=== PATIENT | female | born 1990 | race Two or more races ===

== ENCOUNTER 2024-09-02 04:31 | Emergency (ER) | payer MEDICAID, SELFPAY ==
[2024-09-02 04:32] VITALS: BMI 34.0
[2024-09-02 04:37] VITALS: BP 101/69; PULSE 93; RESP 17; TEMP 37.2; O2SAT 97
--- NOTE | 2024-09-02 04:43 | EDRME_ITS ---
Rapid Medical Screening Exam [facility] Arrival date/time: 09/02/24 04:31 34F with history of asthma presents to ED with 2 days of worsening wheezing, SOB, and N/V from coughing. Chief Complaint: Shortness of Breath/Dyspnea Vital signs: Vital Signs Temperature 98.9 F 09/02/24 04:37 Pulse Rate 93 09/02/24 04:37 Respiratory Rate 17 09/02/24 04:37 Blood Pressure 101/69 09/02/24 04:37 Pulse Oximetry (%) 97 09/02/24 04:37 Oxygen Delivery Method Room Air 09/02/24 04:37
[2024-09-02] MEDS: LEVALBUTEROL RT 1.25 MG/0.5 ML NEBU 5 MG INH (05:09)
[2024-09-02] MEDS: IPRATROPIUM RT 0.5 MG/ 2.5 ML NEBU 1 MG INH (05:10)
[2024-09-02] MEDS: BUDESONIDE RT 0.5 MG/2 ML NEBU INH (05:10)
[2024-09-02 05:11] VITALS: PULSE 104; RESP 20; O2SAT 98
[2024-09-02] MEDS: DEXAMETHASONE SOD PHOS INJ 10 MG/ML VIAL IM (05:18)
[2024-09-02] MEDS: ONDANSETRON ODT 4 MG TABRAP PO (05:18)
--- NOTE | 2024-09-02 05:55 | XR_ITS ---
Examination: AP chest single view Technique: AP upright portable chest single view Exam date and time: September 02, 2024 0602 hrs. Comparison May 06, 2024 Indications: Shortness of breath today. Findings: Poor inspiration Normal heart size No pneumonia or pulmonary edema Impression: Poor inspiratory effort chest x-ray
--- NOTE | 2024-09-02 06:32 | EDNOTE_ITS ---
ED SOB =RME/HPI General Chief Complaint: Shortness of Breath/Dyspnea Stated Complaint: DIFF BREATHING Time Seen by Provider: 09/02/24 05:54 Arrival date/time: 09/02/24 04:31 RME / HPI RME / HPI Narrative: 09/02/24 04:31 34F with history of asthma presents to ED with 2 days of worsening wheezing, SOB, and N/V from coughing. This section includes all my notes and documentations, including HPI, PE, and ED course. Clarence Agrawal MD HPI: 34-year-old female here with about a week history of worsening cough, productive cough, purulent sputum, and dyspnea. No fever. Has asthma. No other complaints. ROS: All negative except as documented in HPI. Physical Exam: General: Alert and oriented. No acute distress when remaining still. Eyes: Conjunctivae and lids clear. ENT: No nasal congestion. Pharynx normal. Tympanic membrane normal bilaterally. Neck: Supple. Heart: RRR. Lungs: No respiratory distress. Moderately decreased air movement with diffuse rhonchi. Skin: Warm and dry. Neuro: Alert and oriented X 3. I reviewed all diagnostic test results. My interpretation of the chest x-ray is increased bronchial markings, official radiology report pending. COVID/influenza/RSV negative. At this point, diagnoses include bronchitis with asthma exacerbation. Treatment here included dexamethasone and neb treatments and oral Zithromax 500 mg. Significant improvement noted subjectively and objectively. Recommended a trial of outpatient treatment. Based on my best medical judgment, made decision no further evaluation or treatment indicated at this time. Patient understands and agrees to the d ischarge instructions customized and printed, see below. Discharge instructions from Dr. Agrawal: --No physical exertion for 3 days to help rest the lungs. ?-No smoking or exposure to smoking or pets or dust or cold or humidity. --Zithromax to kill the germs causing the bronchitis. --Prednisone to help decrease the swelling in the airways. --Albuterol 2 puffs every 4-6 hours for 3 days to help keep the airways open. Then as needed for cough or shortness of breath. --See a private doctor on 09/06/2024 if not completely better. --Seek immediate medical care with worsening or with any concerns. Clarence Agrawal MD Related Data Home Medications ?Medication ?Instructions ?Recorded ?Confirmed semaglutide (weight loss) 1 mg/0.5 1 mg subcut QWEEK 03/31/24 06/30/24 mL subcutaneous pen injector (Wegovy) Previous Rx's ?Medication ?Instructions ?Recorded albuterol sulfate 90 mcg/actuation 2 inh inhalation QID PRN shortness 09/02/24 aerosol inhaler of breath or wheezing #8.5 grams azithromycin 500 mg tablet 500 mg PO QDAY 3 days #3 tabs 09/02/24 (Zithromax TRI-EVONNE) prednisone 20 mg tablet 40 mg PO 1XD 3 days #6 tabs 09/02/24 Allergies Allergy/AdvReac Type Severity Reaction Status Date / Time Sulfa (Sulfonamide Allergy Severe RASH Verified 09/02/24 04:35 Antibiotics) amoxicillin Allergy Intermediate rash Verified 09/02/24 04:35 Course Quality Measures none Orders Category Date Time Status Bedside COVID-19 Antigen Test NOW Care 09/02/24 05:55 Active Bedside Influenza A&B Antigen Test NOW Care 09/02/24 05:55 Completed XR chest 1V portable Stat Exams 09/02/24 05:55 Taken RSV [Respiratory Syncytial Virus Ag] Stat Lab 09/02/24 06:09 Completed Azithromycin Po [Zithromax PO] Med 09/02/24 06:28 Discontinued 500 mg PO X1 ONE Budesonide Rt [Pulmicort Rt Fozia] Med 09/02/24 04:41 Discontinued 0.5 mg INH X1 ONE Dexamethasone Inj [Decadron Inj] Med 09/02/24 04:41 Discontinued 10 mg IM X1 ONE Ipratropium Matador Rt Fozia [Atrovent Rt Fozia] Med 09/02/24 04:41 Discontinued 1 mg INH X1 ONE Levalbuterol Rt [Xopenex Rt Fozia] Med 09/02/24 04:41 Discontinued 5 mg INH X1 ONE Ondansetron Odt [Zofran Odt] Med 09/02/24 04:41 Discontinued 4 mg PO X1 ONE Sodium Chloride Rt Fozia 0.9% [NS Rt Fozia 0.9%] Med 09/02/24 04:41 Active 3 ml INH PRN PRN Vital Signs Vital signs: Vital Signs Temperature 98.9 F 09/02/24 04:37 Pulse Rate 93 09/02/24 04:37 Respiratory Rate 17 09/02/24 04:37 Blood Pressure 101/69 09/02/24 04:37 Pulse Oximetry (%) 97 09/02/24 04:37 Oxygen Delivery Method Room Air 09/02/24 04:37 Shortness of Breath / Dyspnea Patient data External records reviewed:: [facility] previous records Clinical information provided by:: patient Social determinants that could affect healthcare access:: none Patient has the following chronic illnesses:: Asthma How is presenting disease/condition affected by chronic disease/condition?: exacerbated by Evaluation data The following diagnostics were reviewed and interpreted by me:: lab results and radiology exam(s) Lab and/or radiology exams considered but not ordered:: None Interpretation Summary: Bronchitis and asthma exacerbation Medications / Prescriptions Medications or Prescriptions considered but not ordered:: None Medication administrations:: Medication Administration History Sodium Chloride (Sodium Chloride Rt Fozia 0.9% 3 Ml Nebu) 3 ml INH PRN PRN PRN Reason: SOLN Stop: 10/02/24 04:40 Discontinued Medications Azithromycin (Azithromycin 250 Mg Tablet) 500 mg PO X1 ONE Stop: 09/02/24 06:29 Last Admin: 09/02/24 06:39 Dose: 500 mg Documented By: ROMAN Budesonide (Budesonide Rt 0.5 Mg/2 Ml Nebu) 0.5 mg INH X1 ONE Stop: 09/02/24 04:42 Last Admin: 09/02/24 05:10 Dose: 0.5 mg Documented By: HONG Dexamethasone Sodium Phosphate (Dexamethasone Sod Phos Inj 10 Mg/Ml Vial) 10 mg IM X1 ONE Stop: 09/02/24 04:42 Last Admin: 09/02/24 05:18 Dose: 10 mg Documented By: ROMAN Ipratropium Matador (Ipratropium Rt 0.5 Mg/ 2.5 Ml Nebu) 1 mg INH X1 ONE Stop: 09/02/24 04:42 Last Admin: 09/02/24 05:10 Dose: 1 mg Documented By: HONG Levalbuterol HCl (Levalbuterol Rt 1.25 Mg/0.5 Ml Nebu) 5 mg INH X1 ONE Stop: 09/02/24 04:42 Last Admin: 09/02/24 05:09 Dose: 5 mg Documented By: HONG Ondansetron HCl (Ondansetron Odt 4 Mg Tabrap) 4 mg PO X1 ONE; Protocol Stop: 09/02/24 04:42 Last Admin: 09/02/24 05:18 Dose: 4 mg Documented By: ROMAN Dexamethasone and neb treatments and Zithromax Consultations Consultation(s) initiated? (list below): No Diagnosis Shortness of Breath Differential Diagnosis: acute exacerbation of chronic obstructive airways disease, community acquired pneumonia, asthma with exacerbation and other (Bronchitis, COVID, influenza, RSV) Most likely diagnosis given after review of the tests above:: Bronchitis with asthma exacerbation Admission Indicated Admission indicated?: not indicated Explain why admission is indicated or not indicated:: Admission criteria not met Admission Request Was there a request for admission?: No Disposition Plan Disposition Plan: Discharge Discharge Attestation Discharge Attestation: The patient and all family members were given an opportunity to ask questions and understood the discharge instructions. Discharge instructions specifically effects, indications for sooner follow up or return to the emergency department, and the expected course of current diagnosis. Patient condition: Stable Discharge Plan Plan Patient Disposition: HOME (Self Care) Prescriptions/Referrals Prescriptions/Med Rec: New prednisone 20 mg tablet 40 mg PO 1XD 3 Days Qty: 6 0RF Taper: Prednisone Taper 20 mg DAILY for 2 Days and 0 Hour 10 mg DAILY for 2 Days and 0 Hour 5 mg DAILY for 7 Days and 0 Hour azithromycin [Zithromax TRI-EVONNE] 500 mg tablet 500 mg PO QDAY 3 Days Qty: 3 0RF albuterol sulfate 90 mcg/actuation HFA aerosol inhaler 2 inh inhalation QID PRN (Reason: shortness of breath or wheezing) Qty: 8.5 0RF No Action Wegovy 1 mg/0.5 mL pen injector 1 mg SUBCUT QWEEK Patient Comments: ADMINISTER 1 MG UNDER THE SKIN WEEKLY Problem List Clinical Impression: Bronchitis Patient/Caregiver Discharge Instructions Discharge Activity: activity as tolerated Education Materials: ED Bronchitis with Wheezing (Adult) Additional Instructions: Discharge instructions from Dr. Agrawal: --No physical exertion for 3 days to help rest the lungs. ?-No smoking or exposure to smoking or pets or dust or cold or humidity. --Zithromax to kill the germs causing the bronchitis. --Prednisone to help decrease the swelling in the airways. --Albuterol 2 puffs every 4-6 hours for 3 days to help keep the airways open. Then as needed for cough or shortness of breath. --See a private doctor on 09/06/2024 if not completely better. --Seek immediate medical care with worsening or with any concerns. Print Language: Tristanian Stand Alone Forms: Bree Award Info., Patient Portal Info Letter
[2024-09-02] MEDS: AZITHROMYCIN 250 MG TABLET 500 MG PO (06:39)
[2024-09-02 06:40] VITALS: BP 110/72; PULSE 81; RESP 18; TEMP 36.7; O2SAT 98
[2024-09-02 06:44] LABS: Respiratory Syncytial Virus Ag Negative (Negative)
== END 2024-09-02 06:42 | disposition home or self-care (01) ==
LOC: SERX 06:57
PROVIDERS: Emergency Provider Emergency Medicine
DX: J40 Bronchitis, not specified as acute or chronic (principal)
CPT/HCPCS: 71045; 87400; 87634; 87811; 94644; 96372; 99283; J1100; Q0162; A9270

== ENCOUNTER 2024-09-11 10:02 | Emergency (ER) | payer MEDICAID, SELFPAY ==
[2024-09-11 10:04] VITALS: BMI 34.9
[2024-09-11 10:41] VITALS: BP 96/68; BP 97/67; PULSE 73; RESP 17; TEMP 36.8; O2SAT 98; BMI 34.9
--- NOTE | 2024-09-11 10:42 | XR_ITS ---
Examination: Complete OB ultrasound, less than 14 weeks, transabdominal Date and time of exam: September 11, 2024 1140 hrs. Indications: Weakness abdominal pain pelvic pain today Technique: Obstetrical ultrasound images less than 14 weeks performed via transabdominal imaging Findings: A normal shaped single intrauterine gestation is present in the uterus. pole 0.7 cm corresponds to 6 weeks 4 days gestational age Cardiac motion 130 bpm Subchorionic hemorrhage 13 x 13 mm Ultrasonographic survey of visible structures unremarkable. Amniotic fluid volume appears appropriate for this estimated gestational age. Right ovary 3.7 x 2.7 x 2.9 cm 17 mm follicular cyst Left ovary 2.1 x 1.5 x 1.9 cm arterial flow Impression: Viable intrauterine gestation 6 weeks 4 days.
--- NOTE | 2024-09-11 10:42 | XR_ITS ---
Examination: PA lateral chest 2 views Technique: Upright PA lateral chest 2 views Exam date and time: September 11, 2024 1115 hrs. Comparison September 02, 2024 Indications: Shortness of breath lower abdominal pain beginning 3 days ago. Findings: Minimal prominence left ventricle Mild prominence pulmonary vasculature No pneumonia or pulmonary edema Impression: Mild prominence pulmonary vasculature
--- NOTE | 2024-09-11 10:42 | PD.EDRME ---
Rapid Medical Screening Exam RME Arrival date/time: 09/11/24 10:02 34-year-old female presents emergency department complaints of lower abdominal pain and pelvic pain patient reports being patient also reports generalized weakness Chief Complaint: General Adult/Misc Complain Time Seen by Provider: 09/11/24 10:15
[2024-09-11 11:14] LABS: Collection Type, Urine Clean Catch
[2024-09-11 11:23] LABS: Basophils % (Auto) 0 % (0-2.5); Eosinophils # (Auto) 0.3 Thou/mm3 (0.0-0.5); Eosinophils % (Auto) 3 % (0-10); Hemoglobin 12.2 g/dL (12.0-16.0); Immature Granulocytes % (Auto) 0 % (0-0); Immature Granulocytes Auto 0.04 Thou/mm3 (0.00-0.00); Lymphocytes # (Auto) 2.3 Thou/mm3 (1.0-4.8); Lymphocytes % (Auto) 25 % (10-50); Mean Corpuscular HGB Conc 33.9 g/dl (31.0-37.0); Mean Corpuscular Volume 86 fL (80-100); Monocytes # (Auto) 0.5 Thou/mm3 (0.0-0.8); Monocytes % (Auto) 6 % (0-12); Neutrophils # (Auto) 6.1 Thou/mm3 (1.8-7.7); Neutrophils % (Auto) 66 % (37-80); Nucleated Red Blood Cell % 0 /100 WBC (0); Platelet Count 253 Thou/mm3 (140-440); RDW Standard Deviation 41.3 fL (36.4-46.3); White Blood Count 9.3 Thou/mm3 (3.6-11.0)
[2024-09-11 11:35] LABS: Alanine Aminotransferase 16 U/L (10-49); Albumin, Serum 4.6 gm/dL (3.5-5.0); Albumin/Globulin Ratio 1.8 (1.2-2.2); Alkaline Phosphatase 69 U/L (46-116); Anion Gap 7 (7-16); Aspartate Amino Transferase 11 U/L (0-34); BUN/Creatinine Ratio 15 Ratio (12-20); Blood Urea Nitrogen 9 mg/dL (9-23); Calcium 9.4 mg/dL (8.3-10.6); Calcium (Corrected) 9.4 mg/dL (8.5-10.1); Carbon Dioxide 24.8 mMol/L (20.0-31.0); Chloride 102 mMol/L (98-107); Creatinine (Component) 0.6 mg/dL (0.6-1.3); Estimated Creatinine Clearance 132.3 mL/min (>60); Globulin 2.5 gm/dL (2.3-3.5); Glucose 91 mg/dL (74-106); Lipase 62 U/L (12-53); Osmolality,Calculated 266 (275-295); Potassium 3.7 mMol/L (3.4-5.1); Sodium 134 mMol/L (136-145); Total Protein 7.1 gm/dL (5.7-8.2); eGFR > 60 See Note
[2024-09-11 11:49] LABS: Bacteria,Urine Rare; Bilirubin,Urine Negative (Negative); Blood,Urine Trace (Negative); Clarity,Urine Clear (Clear/Hazy); Color,Urine Colorless (Lt Yel-Yel); Glucose, Urine Negative (Negative); Ketones,Urine Negative (Negative); Leukocyte Esterase,Urine Negative (Negative); Nitrite,Urine Negative (Negative); Protein,Urine Negative (Neg - Trace); RBC,Urine 2 /hpf (0-3); Specific Gravity,Urine 1.004 (1.001-1.035); Squamous Epithelial Cell,Urine 1 /hpf (0-5); Urobilinogen,Urine Negative mg/dL (0.0-1.0); WBC,Urine < 1 /hpf (0-5)
[2024-09-11 12:08] LABS: Beta HCG,Quantitative 88400 mIU/mL (<5.0)
[2024-09-11 14:52] VITALS: BP 102/68; PULSE 74; RESP 19; TEMP 36.8; O2SAT 100
--- NOTE | 2024-09-11 14:57 | EDNOTE_ITS ---
ED General RME/HPI General Chief complaint: General Adult/Misc Complain Stated complaint: LOWER ABD PAIN 7WEEKS /DE LUNA/WEAK Time Seen by Provider: 09/11/24 10:15 Arrival date/time: 09/11/24 10:02 RME / HPI RME / HPI narrative: 34-year-old female patient with no significant medical history, 7 para 6 0, came in for evaluation regarding pelvic pain. Has been having pelvic pain for the last 3 days, described as dull ache, severity mild associated with headache and generalized body weakness. Denies any cough denies any sore throat . Patient also denies any vaginal bleeding or spotting. Denies any dysuria or frequency. Denies any other complaints. Related Data Home Medications ?Medication ?Instructions ?Recorded ?Confirmed semaglutide (weight loss) 1 mg/0.5 1 mg subcut QWEEK 03/31/24 06/30/24 mL subcutaneous pen injector (Wegovy) Previous Rx's ?Medication ?Instructions ?Recorded albuterol sulfate 90 mcg/actuation 2 inh inhalation QID PRN shortness 09/02/24 aerosol inhaler of breath or wheezing #8.5 grams Allergies Allergy/AdvReac Type Severity Reaction Status Date / Time Sulfa (Sulfonamide Allergy Severe RASH Verified 09/02/24 04:35 Antibiotics) amoxicillin Allergy Intermediate rash Verified 09/02/24 04:35 Review of Systems Review of Systems Narrative Review of Systems: Review of system reviewed and within normal limits except mentioned in HPI ED Exam Narrative Physical exam: VITAL SIGNS: Reviewed. GENERAL APPEARANCE: Alert and interactive, follows commands, no acute distress, HEAD AND FACE: Non-traumatic. ENT: PERRL, pink conjunctivitis, eyelid no trauma, Mucous membrane moist. NECK: Supple, nontender, no nuchal rigidity. CHEST: No tenderness, no crepitus, no paradoxical movement, no retractions. LUNGS: Clear, well ventilated, symmetric, no rales, no wheezing, no ronchi, no stridor, good breath sounds bilaterally. HEART: Regular rate, regular rhythm, no murmur, no gallops. ABDOMEN: Soft, positive bowel sounds, nondistended, no guarding, nontender, no rebound, no masses, RECTAL: Deferred. GENITAL: Deferred. NEUROLOGICAL: Gross motor function intact sensory function intact, Appropriate for age. MUSCULOSKELETAL: low back nontender, full range of motion. EXTREMITIES: Nontender, full range of motion. SKIN: Color pink, dry, no rash, no lacerations, no abrasions, no contusions. LYMPHATICS: Deferred. Course Quality Measures none Orders Category Date Time Status Bedside COVID-19 Antigen Test NOW Care 09/11/24 10:42 Active Bedside Influenza A&B Antigen Test NOW Care 09/11/24 10:42 Completed US OB <= 14 weeks fetus Stat Exams 09/11/24 10:42 Completed XR chest 2V Stat Exams 09/11/24 10:42 Completed ABO/RH Type Stat Lab 09/11/24 11:02 Completed Beta HCG,Quantitative Stat Lab 09/11/24 11:02 Completed CBC Stat Lab 09/11/24 11:02 Completed Comprehensive Metabolic Panel Stat Lab 09/11/24 11:02 Completed Lipase Stat Lab 09/11/24 11:02 Completed UA [Urinalysis] Stat Lab 09/11/24 10:58 Completed Urine Culture Stat Lab 09/11/24 10:58 Received Vital Signs Vital signs: Vital Signs Temperature 98.3 F 09/11/24 10:41 Pulse Rate 73 09/11/24 10:41 Respiratory Rate 17 09/11/24 10:41 Blood Pressure 96/68 09/11/24 10:41 Pulse Oximetry (%) 98 09/11/24 10:41 Oxygen Delivery Method Room Air 09/11/24 10:41 MDM Patient data External records reviewed:: None Clinical information provided by:: patient Social determinants that could affect healthcare access:: none Patient has the following chronic illnesses:: None How is presenting disease/condition affected by chronic disease/condition?: no chronic disease Evaluation data The following diagnostics were reviewed and interpreted by me:: lab results and radiology exam(s) Lab and/or radiology exams considered but not ordered:: None Interpretation Summary: Patient's workup today all came back normal no UTI. Negative for COVID and influenza CBC no leukocytosis chest x-ray no infiltrates no pneumothorax pneumothorax, ultrasound of showed single live intrauterine gestation about 6 weeks and 4 days old. Medications Medications considered but not ordered:: None Medication administrations:: None Consultations Consultation(s) initiated? (list below): No Diagnosis Differential Diagnosis ED Complaint MDM: Pelvic pain, ovarian cyst, ectopic , intrauterine gestation, UTI Most likely diagnosis given after review of the tests above:: 6 weeks, pelvic pain Admission Indicated Admission indicated?: not indicated Explain why admission is indicated or not indicated:: Stable Admission Request Was there a request for admission?: No Disposition Plan Disposition Plan: Discharge Discharge Attestation Discharge Attestation: The patient and all family members were given an opportunity to ask questions and understood the discharge instructions. Discharge instructions specifically effects, indications for sooner follow up or return to the emergency department, and the expected course of current diagnosis. Patient condition: Stable Medical Decision Making MDM Narrative MDM Narrative: 34-year-old female patient with no significant medical history, 7 para 6 0, came in for evaluation regarding pelvic pain. Has been having pelvic pain for the last 3 days, described as dull ache, severity mild associated with headache and generalized body weakness. Denies any cough denies any sore throat . Patient also denies any vaginal bleeding or spotting. Denies any dysuria or frequency. Denies any other complaints. Patient's workup today all came back normal no UTI. Negative for COVID and influenza CBC no leukocytosis chest x-ray no infiltrates no pneumothorax pneumothorax, ultrasound of showed single live intrauterine gestation about 6 weeks and 4 days old. Results discussed with the patient. Differential Diagnosis Differential Diagnosis: Pelvic pain, ovarian cyst, ectopic , intrauterine gestation, UTI Lab Data 09/11/24 11:02 09/11/24 11:02 Labs: Lab Results 09/11/24 09/11/24 Range/Units 10:58 11:02 WBC 9.3 (3.6-11.0) Thou/mm3 RBC 4.20 (4.00-5.20) Miln/mm3 Hgb 12.2 (12.0-16.0) g/dL Hct 36.0 (36.0-46.0) % MCV 86 (80-100) fL MCH 29.0 (25.0-35.0) pg MCHC 33.9 (31.0-37.0) g/dl RDW Std Deviation 41.3 (36.4-46.3) fL Plt Count 253 (140-440) Thou/mm3 Neut % (Auto) 66 (37-80) % Lymph % (Auto) 25 (10-50) % [place] % (Auto) 6 (0-12) % Eos % (Auto) 3 (0-10) % Baso % (Auto) 0 (0-2.5) % Neut # (Auto) 6.1 (1.8-7.7) Thou/mm3 Lymph # (Auto) 2.3 (1.0-4.8) Thou/mm3 [place] # (Auto) 0.5 (0.0-0.8) Thou/mm3 Eos # (Auto) 0.3 (0.0-0.5) Thou/mm3 Baso # (Auto) 0.0 (0.0-0.2) Thou/mm3 Immature Gran # (Auto) 0.04 H (0.00-0.00) Thou/mm3 Absolute Nucleated RBC 0.00 (0.00-0.00) Thou/mm3 Immature Gran % 0 (0-0) % Nucleated RBC % 0 (0) /100 WBC Sodium 134 L (136-145) mMol/L Potassium 3.7 (3.4-5.1) mMol/L Chloride 102 (98-107) mMol/L Carbon Dioxide 24.8 (20.0-31.0) mMol/L Anion Gap 7 (7-16) BUN 9 (9-23) mg/dL Creatinine 0.6 (0.6-1.3) mg/dL Estim Creat Clear Calc 132.3 (>60) mL/min eGFR > 60 (60 - ) See Note BUN/Creatinine Ratio 15 (12-20) Ratio Glucose 91 (74-106) mg/dL Calculated Osmolality 266 L (275-295) Calcium 9.4 (8.3-10.6) mg/dL Corrected Calcium 9.4 (8.5-10.1) mg/dL Total Bilirubin 1.0 (0.3-1.2) mg/dL AST 11 (0-34) U/L ALT 16 (10-49) U/L Alkaline Phosphatase 69 (46-116) U/L Total Protein 7.1 (5.7-8.2) gm/dL Albumin 4.6 (3.5-5.0) gm/dL Globulin 2.5 (2.3-3.5) gm/dL Albumin/Globulin Ratio 1.8 (1.2-2.2) Lipase 62 H (12-53) U/L Beta HCG, Quant 59633 (<5.0) mIU/mL Ur Collection Type Clean Catch Urine Color Colorless A (Lt Yel-Yel) Urine Clarity Clear (Clear/Hazy) Urine pH 7.0 (5.0-7.0) Ur Specific [place] 1.004 (1.001-1.035) Urine Protein Negative (Neg - Trace) Urine Glucose (UA) Negative (Negative) Urine Ketones Negative (Negative) Urine Blood Trace (Negative) Urine Nitrite Negative (Negative) Urine Bilirubin Negative (Negative) Urine Urobilinogen (Auto) Negative (0.0-1.0) mg/dL Ur Leukocyte Esterase Negative (Negative) Urine RBC 2 (0-3) /hpf Urine WBC < 1 (0-5) /hpf Ur Squamous Epith Cells 1 (0-5) /hpf Urine Bacteria Rare (None) Blood Type AB Positive Blood Bank Wristband ID Yes Discharge Plan Plan Patient Disposition: HOME (Self Care) Disposition Comment: Stable Prescriptions/Referrals Prescriptions/Med Rec: No Action albuterol sulfate 90 mcg/actuation HFA aerosol inhaler 2 inh inhalation QID PRN (Reason: shortness of breath or wheezing) Qty: 8.5 0RF Wegovy 1 mg/0.5 mL pen injector 1 mg SUBCUT QWEEK Patient Comments: ADMINISTER 1 MG UNDER THE SKIN WEEKLY Referrals: Johnathon Paula MD [Primary Care Provider] - In 1 week Problem List Clinical Impression: Pelvic pain, Patient/Caregiver Discharge Instructions Education Materials: First Trimester Additional Instructions: Thank you for the opportunity for serving you today. You are stable for discharged . You are advised to: Follow-up with your TENDER COORDINATOR in 1 to 2 days Return to ED for worsening of symptoms Increase oral fluids You may take Tylenol as needed for pain Print Language: Japanese Stand Alone Forms: Bree Award Info., Patient Portal Info Letter KALLIE/CHRISSIE Supervising Physician KALLIE/CHRISSIE Supervising Physician: MD Lavonne
== END 2024-09-11 15:15 | disposition home or self-care (01) ==
PROVIDERS: Nurse Practitioner Primary Care; Emergency Provider Emergency Medicine; PCP Family Medicine
DX: O26.891 Other specified pregnancy related conditions, first trimester (principal); R10.2 Pelvic and perineal pain; R06.02 Shortness of breath; Z3A.01 Less than 8 weeks gestation of pregnancy
CPT/HCPCS: 36415; 71046; 76801; 80053; 81001; 83690; 84702; 85025; 86900; 86901; 87086; 87400; 87811; 99284

== ENCOUNTER 2024-09-13 11:23 | Emergency (ER) | payer MEDICAID, SELFPAY ==
[2024-09-13 11:44] VITALS: BP 108/75; PULSE 107; RESP 18; TEMP 38.4; O2SAT 98; BMI 33.6
--- NOTE | 2024-09-13 11:50 | XR_ITS ---
Examination: AP chest single view TECHNIQUE: AP portable upright chest single view Exam date and time: September 13, 2024 1159 hours INDICATIONS: Coughing shortness of breath sepsis today FINDINGS: Normal heart size Lungs are clear. The osseous structures are intact IMPRESSION: No active disease
[2024-09-13 11:53] VITALS: TEMP 38.4
[2024-09-13] MEDS: ACETAMINOPHEN 500 MG TABLET 1000 MG PO (11:53)
--- NOTE | 2024-09-13 12:04 | PD.EDADULT ---
ED General RME/HPI General Chief complaint: Shortness of Breath/Dyspnea Stated complaint: DIFF BREATHING SINCE YESTERDAY, HX ASTHMA Time Seen by Provider: 09/13/24 11:27 Arrival date/time: 09/13/24 11:23 CC: Cough fever wheezing HPI onset 24 hours ago the patient is a at estimated 6 weeks. Seen by [facility]. Patient states son diagnosed with influenza yesterday. The patient states her inhalers at home are not helping for her asthma. Patient denies any vaginal bleeding vaginal discharge nausea vomiting diarrhea. Related Data Home Medications ?Medication ?Instructions ?Recorded ?Confirmed semaglutide (weight loss) 1 mg/0.5 1 mg subcut QWEEK 03/31/24 06/30/24 mL subcutaneous pen injector (Wegovy) Previous Rx's ?Medication ?Instructions ?Recorded albuterol sulfate 90 mcg/actuation 2 inh inhalation QID PRN shortness 09/02/24 aerosol inhaler of breath or wheezing #8.5 grams oseltamivir 75 mg capsule (Tamiflu) 75 mg PO BID 5 days #10 caps 09/13/24 Allergies Allergy/AdvReac Type Severity Reaction Status Date / Time amoxicillin Allergy Severe rash Verified 09/13/24 11:25 Sulfa (Sulfonamide Allergy Severe RASH Verified 09/02/24 04:35 Antibiotics) Review of Systems Review of Systems Narrative Review of Systems: GEN: + fever, no chills, no weight loss EYES: No discharge, no visual changes, no pain HEENT: No ear pain, no congestion, no sore throat PULM: No shortness of breath, + cough, no congestion, +wheezing CV: No chest pain, no dyspnea on exertion, no palpitations GI: No nausea, no vomiting, no diarrhea, no pain, no constipation : No frequency, no urgency, no dysuria MUSC/SKEL: No joint pain, no back pain SKIN: No rash PSYCH: No hallucinations, no depression HEME/LYMPH: No easy bleeding or bruising tendencies NEURO: No weakness, no headache Past Medical History Past Medical History NEUROLOGIC: Negative Neurological Disorders or Seizures CARDIAC: Negative Cardiac Disorders or Congestive Heart Failure RESPIRATORY: Positive Asthma; Negative Chronic Obstructive Pulmonary Disease (COPD) GASTROINTESTINAL: Negative Gastrointestinal Disorders or Hepatitis GENITOURINARY: Negative Genitourinary Disorders or Renal Disease REPRODUCTIVE: Positive Previous Pregnancies MUSCULOSKELETAL: Negative Musculoskeletal Disorders ENDOCRINE: Negative Endocrine Disorders, Diabetes Mellitus Type 1 or Diabetes Mellitus Type 2 HEMATOLOGIC: Negative Blood Disorders or Sickle Cell Disease OTHER HISTORY: Negative Hospitalization, Autoimmune Disease, Down Syndrome, Developmental Delay, Shingles, Falls, Blood Transfusions, Blood Transfusion Reaction, Anesthesia Reactions, Organ Transplant, Chemotherapy, Radiation Therapy, Hyperbaric Therapy, MRSA, VRSA, Vancomycin-Resistant Enterococci, Human Immunodeficiency Virus (HIV), Chicken Pox, Measles, Mumps, Rubella (Thai Measles), Pertussis, Clostridium Difficile or Cancer Family History FAMILY HISTORY: Negative Family Psychiatric Problems, Family Respiratory Disorders, Family Cardiac Disorders, Family Gastrointestinal Problems, Family Cancer, Family Surgery or Family Anesthesia Reaction Surgical History SURGICAL: Negative Section or Organ Transplant Social History SMOKING STATUS: Never smoker SUBSTANCE USE: does not use ED Exam Narrative Physical exam: [General: Obese in mild discomfort not in any acute distress Head normocephalic HEENT: Eyes pupils are PERRLA EOMs are intact nose no rhinorrhea epistaxis mouth: Bay moist membranes uvula is midline swallow symmetrical phonation is normal. All other subsystems of HEENT are within acceptable limits Neck is supple nontender no JVD no edema Chest equal chest rise nontender to palpation Respiratory: Left sided end expiratory wheezes with deep inhalation. CV: Rate rhythm is regular no murmurs rubs or clicks Abdomen is distended secondary to body habitus soft nontender no masses positive bowel sounds all 4 quadrants Back: No CVA tenderness no spinous process tenderness from cervical spine thoracic and lumbar spine Skin: Intact no petechiae rash induration ulceration or crepitus Extremities: Moving all extremity against resistance cap refill less than 2 seconds neurosensory intact Neuro: Awake alert oriented x3 Glascow coma 15 no focal deficits] Course Course Course Narrative: Patient's laboratory results show no acute finding other than influenza B. Quality Measures none Orders Category Date Time Status Bedside COVID-19 Antigen Test NOW Care 09/13/24 11:50 Active Bedside Influenza A&B Antigen Test NOW Care 09/13/24 11:59 Active US OB <= 14 weeks fetus Stat Exams 09/13/24 12:44 Completed XR chest 1V portable Stat Exams 09/13/24 11:50 Completed ABO/RH Type Stat Lab 09/13/24 11:53 Completed Blood Culture (Lab) Stat Lab 09/13/24 11:53 Received CBC Stat Lab 09/13/24 11:53 Completed Comprehensive Metabolic Panel Stat Lab 12/23/24 11:53 Completed HCG,Qualitative Serum Stat Lab 09/13/24 11:53 Completed Influenza A & B Rapid Panel Stat Lab 09/13/24 11:55 Completed Lactate (Lactic Acid) Stat Lab 09/13/24 11:53 Completed Urinalysis Stat Lab 09/13/24 11:50 Ordered Urine Culture Stat Lab 09/13/24 11:50 Ordered Acetaminophen Tab [Tylenol ES Tab] Med 09/13/24 11:49 Discontinued 1,000 mg PO X1 ONE Vital Signs Vital signs: Vital Signs Temperature 101.1 F H 09/13/24 11:44 Pulse Rate 107 H 09/13/24 11:44 Respiratory Rate 18 09/13/24 11:44 Blood Pressure 108/75 09/13/24 11:44 Pulse Oximetry (%) 98 09/13/24 11:44 Oxygen Delivery Method Room Air 09/13/24 11:[address] [facility] Patient data External records reviewed:: [facility] previous records Clinical information provided by:: patient Social determinants that could affect healthcare access:: none Patient has the following chronic illnesses:: asthma How is presenting disease/condition affected by chronic disease/condition?: exacerbated by Evaluation data The following diagnostics were reviewed and interpreted by me:: lab results and radiology exam(s) Lab and/or radiology exams considered but not ordered:: Influenza B positive CBC shows no acute leukocytosis anemia thrombocytopenia CMP shows no acute electrolyte imbalances renal impairment transaminitis or T. bili elevation. Ultrasound symptoms a single IUP with good heart tones Urine is negative Interpretation Summary: Patient's case discussed with Dr. Ms. Leyva states patient can be discharged home on Tamiflu to follow-up with her OB. Medications Medications considered but not ordered:: None Medication administrations:: Medication Administration History Discontinued Medications Acetaminophen (Acetaminophen 500 Mg Tablet) 1,000 mg PO X1 ONE Stop: 09/13/24 11:50 Last Admin: 09/13/24 11:53 Dose: 1,000 mg Documented By: SISSY None Consultations Consultation(s) initiated? (list below): Yes Consultation #1 (Physician, Specialty, Details): Fanny Time: 14:39 Diagnosis Differential Diagnosis ED Complaint MDM: Influenza, sepsis, UTI Most likely diagnosis given after review of the tests above:: Influenza B Admission Indicated Admission indicated?: not indicated Explain why admission is indicated or not indicated:: Stable for outpatient follow-up Admission Request Was there a request for admission?: No Disposition Plan Disposition Plan: Discharge Discharge Attestation Discharge Attestation: The patient and all family members were given an opportunity to ask questions and understood the discharge instructions. Discharge instructions specifically effects, indications for sooner follow up or return to the emergency department, and the expected course of current diagnosis. Patient condition: Stable Medical Decision Making Differential Diagnosis Differential Diagnosis: Influenza, sepsis, UTI Lab Data 09/13/24 11:53 09/13/24 11:53 Labs: Lab Results 09/13/24 09/13/24 Range/Units 11:53 11:55 WBC 7.4 (3.6-11.0) Thou/mm3 RBC 4.24 (4.00-5.20) Miln/mm3 Hgb 12.3 (12.0-16.0) g/dL Hct 36.4 (36.0-46.0) % MCV 86 (80-100) fL MCH 29.0 (25.0-35.0) pg MCHC 33.8 (31.0-37.0) g/dl RDW Std Deviation 42.4 (36.4-46.3) fL Plt Count 209 D (140-440) Thou/mm3 Neut % (Auto) 79 (37-80) % Lymph % (Auto) 11 (10-50) % Wheeler % (Auto) 8 (0-12) % Eos % (Auto) 2 (0-10) % Baso % (Auto) 0 (0-2.5) % Neut # (Auto) 5.8 (1.8-7.7) Thou/mm3 Lymph # (Auto) 0.8 L (1.0-4.8) Thou/mm3 Wheeler # (Auto) 0.6 (0.0-0.8) Thou/mm3 Eos # (Auto) 0.1 (0.0-0.5) Thou/mm3 Baso # (Auto) 0.0 (0.0-0.2) Thou/mm3 Immature Gran # (Auto) 0.02 H (0.00-0.00) Thou/mm3 Absolute Nucleated RBC 0.00 (0.00-0.00) Thou/mm3 Immature Gran % 0 (0-0) % Nucleated RBC % 0 (0) /100 WBC Sodium 134 L (136-145) mMol/L Potassium 3.7 (3.4-5.1) mMol/L Chloride 101 (98-107) mMol/L Carbon Dioxide 21.3 (20.0-31.0) mMol/L Anion Gap 12 (7-16) BUN 7 L (9-23) mg/dL Creatinine 0.6 (0.6-1.3) mg/dL Estim Creat Clear Calc 134.8 (>60) mL/min eGFR > 60 (60 - ) See Note BUN/Creatinine Ratio 12 (12-20) Ratio Glucose 89 (74-106) mg/dL Calculated Osmolality 265 L (275-295) Lactic Acid 1.3 (0.4-2.0) mMol/L Calcium 9.6 (8.3-10.6) mg/dL Corrected Calcium 9.6 (8.5-10.1) mg/dL Total Bilirubin 0.7 (0.3-1.2) mg/dL AST 19 (0-34) U/L ALT 22 (10-49) U/L Alkaline Phosphatase 77 (46-116) U/L Total Protein 7.3 (5.7-8.2) gm/dL Albumin 4.7 (3.5-5.0) gm/dL Globulin 2.6 (2.3-3.5) gm/dL Albumin/Globulin Ratio 1.8 (1.2-2.2) HCG, Qual Positive Influenza A (Rapid) Negative Influenza B (Rapid) Positive A Blood Type AB Positive Blood Bank Wristband ID Yes Discharge Plan Plan Patient Disposition: HOME (Self Care) Patient condition on transfer: Stable Prescriptions/Referrals Prescriptions/Med Rec: New oseltamivir [Tamiflu] 75 mg capsule 75 mg PO BID 5 Days Qty: 10 0RF No Action albuterol sulfate 90 mcg/actuation HFA aerosol inhaler 2 inh inhalation QID PRN (Reason: shortness of breath or wheezing) Qty: 8.5 0RF Wegovy 1 mg/0.5 mL pen injector 1 mg SUBCUT QWEEK Patient Comments: ADMINISTER 1 MG UNDER THE SKIN WEEKLY Referrals: Johnathon Paula MD [Primary Care Provider] - In 1 week Problem List Clinical Impression: Influenza B, Patient/Caregiver Discharge Instructions Education Materials: Influenza (Flu) and , The Flu (Influenza) Additional Instructions: Take the medication as prescribed, include Tylenol. If there is worsening of symptoms return the emergency room immediately for further evaluation. Print Language: Polish Stand Alone Forms: Bree Award Info., Work/School Release, Patient Portal Info Letter PA/YARD COORDINATOR Supervising Physician PA/YARD COORDINATOR Supervising Physician: Aki Ventura ENP
[2024-09-13 12:12] LABS: Lactate (Lactic Acid) 1.3 mMol/L (0.4-2.0)
[2024-09-13 12:24] LABS: Basophils % (Auto) 0 % (0-2.5); Eosinophils # (Auto) 0.1 Thou/mm3 (0.0-0.5); Eosinophils % (Auto) 2 % (0-10); Hematocrit 36.4 % (36.0-46.0); Hemoglobin 12.3 g/dL (12.0-16.0); Immature Granulocytes % (Auto) 0 % (0-0); Immature Granulocytes Auto 0.02 Thou/mm3 (0.00-0.00); Lymphocytes # (Auto) 0.8 Thou/mm3 (1.0-4.8); Lymphocytes % (Auto) 11 % (10-50); Mean Corpuscular HGB Conc 33.8 g/dl (31.0-37.0); Mean Corpuscular Volume 86 fL (80-100); Monocytes # (Auto) 0.6 Thou/mm3 (0.0-0.8); Monocytes % (Auto) 8 % (0-12); Neutrophils # (Auto) 5.8 Thou/mm3 (1.8-7.7); Neutrophils % (Auto) 79 % (37-80); Nucleated Red Blood Cell % 0 /100 WBC (0); Platelet Count 209 Thou/mm3 (140-440); RDW Standard Deviation 42.4 fL (36.4-46.3); Red Blood Count 4.24 Miln/mm3 (4.00-5.20); White Blood Count 7.4 Thou/mm3 (3.6-11.0)
[2024-09-13 12:35] LABS: Influenza A Ag Negative; Influenza B Ag Positive
[2024-09-13 12:37] VITALS: BP 96/60; PULSE 93; RESP 18; TEMP 37.2; O2SAT 100
--- NOTE | 2024-09-13 12:44 | XR_ITS ---
Examination: Complete OB ultrasound, less than 14 weeks, transabdominal Date and time of exam: September 12, 2024 1252 hours INDICATIONS: Sepsis SOB today Technique: Obstetrical ultrasound images less than 14 weeks performed via transabdominal imaging Findings: A normal shaped single intrauterine gestation is present in the uterus. pole 0.9 cm corresponds to 7 weeks 0 days gestational age Cardiac motion 150 BPM Subchorionic hemorrhage 2.5 x 1.5 x 2.0 cm Ultrasonographic survey of visible structures unremarkable. Amniotic fluid volume appears appropriate for this estimated gestational age. Right ovary 4.1 x 2.7 x 2.4 cm arterial flow 21 x 18 mm cyst Left ovary 2.7 x 1.1 x 2.2 cm arterial flow IMPRESSION: Viable intrauterine gestation 7 weeks 0 days Recommend short-term follow-up transvaginal pelvic sonography given the subchorionic hemorrhage.
[2024-09-13 12:59] VITALS: TEMP 37.2
[2024-09-13 13:25] LABS: HCG,Qualitative Serum Positive
[2024-09-13 14:26] LABS: Alanine Aminotransferase 22 U/L (10-49); Albumin, Serum 4.7 gm/dL (3.5-5.0); Albumin/Globulin Ratio 1.8 (1.2-2.2); Alkaline Phosphatase 77 U/L (46-116); Anion Gap 12 (7-16); Aspartate Amino Transferase 19 U/L (0-34); BUN/Creatinine Ratio 12 Ratio (12-20); Bilirubin,Total 0.7 mg/dL (0.3-1.2); Blood Urea Nitrogen 7 mg/dL (9-23); Calcium 9.6 mg/dL (8.3-10.6); Calcium (Corrected) 9.6 mg/dL (8.5-10.1); Carbon Dioxide 21.3 mMol/L (20.0-31.0); Chloride 101 mMol/L (98-107); Creatinine (Component) 0.6 mg/dL (0.6-1.3); Estimated Creatinine Clearance 134.8 mL/min (>60); Globulin 2.6 gm/dL (2.3-3.5); Glucose 89 mg/dL (74-106); Osmolality,Calculated 265 (275-295); Potassium 3.7 mMol/L (3.4-5.1); Sodium 134 mMol/L (136-145); Total Protein 7.3 gm/dL (5.7-8.2); eGFR > 60 See Note
== END 2024-09-13 15:06 | disposition home or self-care (01) ==
PROVIDERS: Nurse Practitioner Primary Care; Registered Nurse General Practice; Emergency Provider Emergency Medicine; PCP Family Medicine
DX: O99.511 Diseases of the respiratory system complicating pregnancy, first trimester (principal); Z3A.01 Less than 8 weeks gestation of pregnancy; J10.1 Influenza due to other identified influenza virus with other respiratory manifestations
CPT/HCPCS: 36415; 71045; 76801; 80053; 81001; 83605; 84703; 85025; 86900; 86901; 87040; 87086; 87502; 99284; A9270

== ENCOUNTER 2024-09-26 18:28 | Emergency (ER) | payer MEDICAID, SELFPAY ==
[2024-09-26 18:29] VITALS: BMI 33.8
[2024-09-26 19:13] VITALS: BP 101/68; PULSE 86; RESP 20; TEMP 36.8; O2SAT 100
--- NOTE | 2024-09-26 19:13 | XR_ITS ---
Examination: Abdomen sonogram, Limited Date and time of exam: September 26, 2019 01/28/1930 BPM Technique: Real-time wilkins scale transabdominal sonographic images of the upper abdomen obtained. Findings: No gallstones identified Gallbladder wall 0.21 cm no edema Common bile duct 0.25 cm no stones Pancreatic head 2.7 cm Liver 15.77 cm no focal liver lesions Normal hepatopedal portal venous flow Patent IVC Impression: Negative for cholelithiasis, negative for cholecystitis Normal common bile duct
--- NOTE | 2024-09-26 19:13 | XR_ITS ---
Examination: Complete OB ultrasound, less than 14 weeks, transabdominal Date and time of exam: March 26, 20252018 hrs. Indications: Right upper abdominal pain beginning 5 days ago Technique: Obstetrical ultrasound images less than 14 weeks performed via transabdominal imaging Findings: A normal shaped single intrauterine gestation is present in the uterus. pole 2.2 cm corresponds to 8 week 6 day gestational age Cardiac motion 180 BPM Ultrasonographic survey of visible and placental structures unremarkable. Amniotic fluid volume appears appropriate for this estimated gestational age. 4.2 x 2.5 x 3.2 cm arterial flow 23 mm cyst Left ovary 1.8 x 1.4 x 1.5 cm arterial flow Impression: Viable intrauterine gestation 8 weeks 6 days.
--- NOTE | 2024-09-26 19:17 | PD.EDRME ---
Rapid Medical Screening Exam E Arrival date/time: 09/26/24 18:28 This is a 34-year-old female that comes in with complaints of abdominal pain in the epigastric area. Patient states she is approximately 9 weeks . Patient's last menstrual period was July 24. Patient is a 7 para 6 patient complains of nausea. Patient denies fever, vomiting, diarrhea. I have greeted and performed a focused initial assessment of this patient. Initial appropriate labs ordered at this time. A comprehensive ED assessment and evaluation of the patient and analysis of all test and completion of medical decision making process will be conducted by additional ED provider. Chief Complaint: Abdominal Pain Time Seen by Provider: 09/26/24 19:06 Vital signs: Vital Signs Temperature 98.2 F 09/26/24 19:13 Pulse Rate 86 09/26/24 19:13 Respiratory Rate 20 09/26/24 19:13 Blood Pressure 101/68 09/26/24 19:13 Pulse Oximetry (%) 100 09/26/24 19:13 Oxygen Delivery Method Room Air 09/26/24 19:13
[2024-09-26 20:24] LABS: Basophils % (Auto) 0 % (0-2.5); Eosinophils # (Auto) 0.3 Thou/mm3 (0.0-0.5); Eosinophils % (Auto) 3 % (0-10); Hematocrit 33.9 % (36.0-46.0); Hemoglobin 11.6 g/dL (12.0-16.0); Immature Granulocytes % (Auto) 0 % (0-0); Immature Granulocytes Auto 0.03 Thou/mm3 (0.00-0.00); Lymphocytes # (Auto) 2.4 Thou/mm3 (1.0-4.8); Lymphocytes % (Auto) 26 % (10-50); Mean Corpuscular HGB Conc 34.2 g/dl (31.0-37.0); Mean Corpuscular Hemoglobin 29.1 pg (25.0-35.0); Mean Corpuscular Volume 85 fL (80-100); Monocytes # (Auto) 0.6 Thou/mm3 (0.0-0.8); Monocytes % (Auto) 7 % (0-12); Neutrophils # (Auto) 5.9 Thou/mm3 (1.8-7.7); Neutrophils % (Auto) 64 % (37-80); Nucleated Red Blood Cell % 0 /100 WBC (0); Platelet Count 290 Thou/mm3 (140-440); RDW Standard Deviation 40.4 fL (36.4-46.3); Red Blood Count 3.98 Miln/mm3 (4.00-5.20); White Blood Count 9.2 Thou/mm3 (3.6-11.0)
[2024-09-26 20:43] LABS: Alanine Aminotransferase 13 U/L (10-49); Albumin, Serum 4.1 gm/dL (3.5-5.0); Albumin/Globulin Ratio 1.5 (1.2-2.2); Alkaline Phosphatase 61 U/L (46-116); Anion Gap 6 (7-16); Aspartate Amino Transferase 13 U/L (0-34); BUN/Creatinine Ratio 18 Ratio (12-20); Bilirubin,Total 0.5 mg/dL (0.3-1.2); Blood Urea Nitrogen 9 mg/dL (9-23); Calcium 9.1 mg/dL (8.3-10.6); Calcium (Corrected) 9.1 mg/dL (8.5-10.1); Carbon Dioxide 25.1 mMol/L (20.0-31.0); Chloride 105 mMol/L (98-107); Creatinine (Component) 0.5 mg/dL (0.6-1.3); Estimated Creatinine Clearance 162.2 mL/min (>60); Globulin 2.7 gm/dL (2.3-3.5); Glucose 81 mg/dL (74-106); Lipase 82 U/L (12-53); Osmolality,Calculated 269 (275-295); Sodium 136 mMol/L (136-145); Total Protein 6.8 gm/dL (5.7-8.2); eGFR > 60 See Note
[2024-09-26 21:26] LABS: Beta HCG,Quantitative 189094 mIU/mL (<5.0)
[2024-09-26 21:56] LABS: Collection Type, Urine Voided
[2024-09-26 22:09] LABS: Bilirubin,Urine Negative (Negative); Blood,Urine 1+ (Negative); Clarity,Urine Clear (Clear/Hazy); Color,Urine Colorless (Lt Yel-Yel); Culture Indicated,Urine Not Indicated; Glucose, Urine Negative (Negative); Ketones,Urine Negative (Negative); Leukocyte Esterase,Urine Negative (Negative); Nitrite,Urine Negative (Negative); PH,Urine 6.5 (5.0-7.0); Protein,Urine Negative (Neg - Trace); RBC,Urine 3 /hpf (0-3); Squamous Epithelial Cell,Urine < 1 /hpf (0-5); Urobilinogen,Urine Negative mg/dL (0.0-1.0); WBC,Urine 1 /hpf (0-5)
--- NOTE | 2024-09-26 22:48 | PD.EDABDPN ---
ED Abdominal Pain RME/HPI General Chief Complaint: Abdominal Pain Stated complaint: abdominal pain, 9 weeks Time seen by provider: 09/26/24 19:06 Arrival date/time: 09/26/24 18:28 Source: patient Mode of arrival: ambulatory Limitations: no limitations RME / HPI RME / HPI narrative: 09/26/24 18:28 This is a 34-year-old female that comes in with complaints of abdominal pain in the epigastric area. Patient states she is approximately 9 weeks . Patient's last menstrual period was July 24. Patient is a 7 para 6 patient complains of nausea. Patient denies fever, vomiting, diarrhea. I have greeted and performed a focused initial assessment of this patient. Initial appropriate labs ordered at this time. A comprehensive ED assessment and evaluation of the patient and analysis of all test and completion of medical decision making process will be conducted by additional ED provider. Dr. Gomez?s Main ED Evaluation: 34-year-old female with history of asthma who presents to the emergency department via private auto for evaluation of abdominal pain intermittent for the past 5 days, significantly worsening tonight. Patient locates the pain to the epigastric region. No radiation or migration. It is worse with PO intake. She notes she is unable to lay flat or sleep comfortably. She is currently 9 weeks . This is her 7th and she has 6 children at home. She reports similar episode in June and was told it was due to an inflamed pancreas. She denies any other associated symptoms, aggravating factors or medical complaints. No sick contacts at home, recent travel or illnesses. Related Data Home Medications ?Medication ?Instructions ?Recorded ?Confirmed semaglutide (weight loss) 1 mg/0.5 1 mg subcut QWEEK 03/31/24 06/30/24 mL subcutaneous pen injector (Wegovy) Previous Rx's ?Medication ?Instructions ?Recorded albuterol sulfate 90 mcg/actuation 2 inh inhalation QID PRN shortness 09/02/24 aerosol inhaler of breath or wheezing #8.5 grams aluminum-mag hydroxide-simethicone 10 ml PO TID PRN indigestion 09/26/24 400 mg-400 mg-40 mg/5 mL oral susp #3,000 mL (Maalox Maximum Strength) famotidine 20 mg tablet (Pepcid) 20 mg PO BID gerd 10 days #20 tabs 09/26/24 Allergies Allergy/AdvReac Type Severity Reaction Status Date / Time amoxicillin Allergy Severe rash Verified 09/13/24 11:25 Sulfa (Sulfonamide Allergy Severe RASH Verified 09/02/24 04:35 Antibiotics) Review of Systems Review of Systems Systems Reviewed: All systems reviewed, normal except as documented Narrative Review of Systems: Gen: No fever, no chills, no weight loss EYES: No discharge, no visual changes, no pain HEENT: No ear pain, no congestion, no sore throat PULM: No shortness of breath, no cough, no congestion CV: No chest pain, no dyspnea on exertion, no palpitations GI: No nausea, no vomiting, no diarrhea, + epigastric pain, no constipation : No frequency, no urgency, no dysuria Musc/skel: No joint pain, no back pain Skin: No rash. Psyc: No hallucinations, no depression Heme/Lymph: No easy bleeding or bruising Past Medical History Past Medical History NEUROLOGIC: Negative Neurological Disorders or Seizures CARDIAC: Negative Cardiac Disorders or Congestive Heart Failure RESPIRATORY: Positive Asthma; Negative Chronic Obstructive Pulmonary Disease (COPD) GASTROINTESTINAL: Negative Gastrointestinal Disorders or Hepatitis GENITOURINARY: Negative Genitourinary Disorders or Renal Disease REPRODUCTIVE: Positive Previous Pregnancies MUSCULOSKELETAL: Negative Musculoskeletal Disorders ENDOCRINE: Negative Endocrine Disorders, Diabetes Mellitus Type 1 or Diabetes Mellitus Type 2 HEMATOLOGIC: Negative Blood Disorders or Sickle Cell Disease OTHER HISTORY: Negative Hospitalization, Autoimmune Disease, Down Syndrome, Developmental Delay, Shingles, Falls, Blood Transfusions, Blood Transfusion Reaction, Anesthesia Reactions, Organ Transplant, Chemotherapy, Radiation Therapy, Hyperbaric Therapy, MRSA, VRSA, Vancomycin-Resistant Enterococci, Human Immunodeficiency Virus (HIV), Chicken Pox, Measles, Mumps, Rubella ([place] Measles), Pertussis, Clostridium Difficile or Cancer Family History FAMILY HISTORY: Negative Family Psychiatric Problems, Family Respiratory Disorders, Family Cardiac Disorders, Family Gastrointestinal Problems, Family Cancer, Family Surgery or Family Anesthesia Reaction Surgical History SURGICAL: Negative Section or Organ Transplant Social History SMOKING STATUS: Never smoker SUBSTANCE USE: does not use ED Exam Narrative Physical exam: GENERAL APPEARANCE: alert and oriented x 4, well-developed, well-nourished, no acute distress VITALS: All vitals were reviewed and the pulse ox is 100% on room air, which is normal according to my interpretation. HEENT: Normocephalic, atraumatic; pupils equal, round, reactive to light; EOMI; mucous membranes pink, moist; oropharynx clear NECK: Supple LUNGS: CTABL; no wheezes, no rales, no rhonchi HEART: Regular rate, regular rhythm; normal S1, S2; no murmurs ABDOMEN: non distended; normal BS; soft, mild epigastric tenderness, no guarding, no rebound; no masses, no organomegaly, no hernia BACK: no CVA tenderness EXTREMITIES: atraumatic; no edema NEUROLOGIC: awake; alert and oriented x4; cranial nerves II-XII grossly intact; no focal sensory or motor deficits PSYCHIATRIC: appropriate mood and affect SKIN: warm, dry, normal color; no rashes General Limitations: Present no limitations Course Quality Measures none Orders Category Date Time Status US OB <= 14 weeks fetus Stat Exams 09/26/24 19:13 Completed US abdomen limited Stat Exams 09/26/24 19:13 Completed Beta HCG,Quantitative Stat Lab 09/26/24 20:13 Completed CBC Stat Lab 09/26/24 20:13 Completed Comprehensive Metabolic Panel Stat Lab 09/26/24 20:13 Completed Lipase Stat Lab 09/26/24 20:13 Completed Urinalysis, C/S if Indicated Stat Lab 09/26/24 21:39 Completed mg Hyd/Al Hyd/Brooks Susp [Maalox Susp] Med 09/26/24 22:48 Once 30 ml PO X1 ONE Vital Signs Vital signs: Vital Signs Temperature 98.2 F 09/26/24 19:13 Pulse Rate 86 09/26/24 19:13 Respiratory Rate 20 09/26/24 19:13 Blood Pressure 101/68 09/26/24 19:13 Pulse Oximetry (%) 100 09/26/24 19:13 Oxygen Delivery Method Room Air 09/26/24 19:13 Abdominal Pain MDM MDM Narrative MDM Narrative:: Scribe Attestation: I, Kira Gonzalez, am scribing for and in the presence of Dr. Gomez. Provider Notation: Although this document has been carefully reviewed, there may still be some phonetic and other typographical errors. These errors are purely grammatical due to imperfections in the software program and should not be construed in any way to compromise the substance of the patient's medical care during this visit. Patient data External records reviewed:: [facility] previous records Clinical information provided by:: patient Social determinants that could affect healthcare access:: none Patient has the following chronic illnesses:: Asthma How is presenting disease/condition affected by chronic disease/condition?: uneffected by Evaluation data The following diagnostics were reviewed and interpreted by me:: lab results and radiology exam(s) Lab and/or radiology exams considered but not ordered:: None Interpretation Summary: Examination: Abdomen sonogram, Limited Date and time of exam: September 26, 2019 01/28/1930 BPM Findings: No gallstones identified Gallbladder wall 0.21 cm no edema Common bile duct 0.25 cm no stones Pancreatic head 2.7 cm Liver 15.77 cm no focal liver lesions Normal hepatopedal portal venous flow Patent IVC Impression: Negative for cholelithiasis, negative for cholecystitis Normal common bile duct Dictated By: Yasir Greene MD Examination: Complete OB ultrasound, less than 14 weeks, transabdominal Date and time of exam: March 26, 20252018 hrs. Indications: Right upper abdominal pain beginning 5 days ago Findings: A normal shaped single intrauterine gestation is present in the uterus. pole 2.2 cm corresponds to 8 week 6 day gestational age Cardiac motion 180 BPM Ultrasonographic survey of visible and placental structures unremarkable. Amniotic fluid volume appears appropriate for this estimated gestational age. 4.2 x 2.5 x 3.2 cm arterial flow 23 mm cyst Left ovary 1.8 x 1.4 x 1.5 cm arterial flow Impression: Viable intrauterine gestation 8 weeks 6 days. Dictated By: Yasir Greene MD Medications / Prescriptions Medications or Prescriptions considered but not ordered:: None Medication administrations:: Medication Administration History Al Hydrox/Mg Hydrox/Simethicone (Mg Hyd/Al Hyd/Brooks (Maalox Reg) Susp 30 Ml Udc) 30 ml PO X1 ONE Stop: 09/26/24 22:49 As above Consultations Consultation(s) initiated? (list below): No Diagnosis Differential diagnosis abdominal pain: abdominal pain, gastroenteritis, pancreatitis and other (acid reflux) Most likely diagnosis given after review of the tests above:: GERD (gastroesophageal reflux disease) Admission Indicated Admission indicated?: not indicated Admission Request Was there a request for admission?: No Disposition Plan Disposition Plan: Discharge Discharge Attestation Discharge Attestation: The patient and all family members were given an opportunity to ask questions and understood the discharge instructions. Discharge instructions specifically effects, indications for sooner follow up or return to the emergency department, and the expected course of current diagnosis. Patient condition: Stable Discharge Plan Plan Patient Disposition: HOME (Self Care) Disposition Comment: Stable for discharge Patient condition on transfer: Stable Prescriptions/Referrals Prescriptions/Med Rec: New alum-mag hydroxide-simeth [Maalox Maximum Strength] 400-400-40 mg/5 mL suspension 10 ml PO TID PRN (Reason: indigestion) Qty: 3000 0RF famotidine [Pepcid] 20 mg tablet 20 mg PO BID 10 Days Qty: 20 0RF No Action albuterol sulfate 90 mcg/actuation HFA aerosol inhaler 2 inh inhalation QID PRN (Reason: shortness of breath or wheezing) Qty: 8.5 0RF Wegovy 1 mg/0.5 mL pen injector 1 mg SUBCUT QWEEK Patient Comments: ADMINISTER 1 MG UNDER THE SKIN WEEKLY Referrals: [facility] [Outside] - In 1 week No Primary/Family,Physician [Primary Care Provider] - In 1 week Problem List Clinical Impression: GERD (gastroesophageal reflux disease) Patient/Caregiver Discharge Instructions Discharge Activity: activity as tolerated Diet Instructions: No spicy foods please Education Materials: What Is GERD?, GERD Lifestyle Changes, Medicines for GERD, ED GERD (Adult) Additional Instructions: Should follow-up with your primary care doctor or at the [facility] within the next several days As always if you are feeling worse or if you are not improving the next 2 days please return to the emergency department and we will help you It is possible that you are having acid reflux pain. I have called in prescriptions for Maalox as well as a medicine called Pepcid at your pharmacy. Pepcid to be taken twice a day for the next 10 days. If you are feeling better please be sure to remember to mention this when you follow-up so that you get refills on these prescriptions. Both of these medicines are safe in Print Language: Bulgarian Stand Alone Forms: [employer]ree Award Info., Patient Portal Info Letter
[2024-09-26] MEDS: MG HYD/AL HYD/SIME (Maalox Reg) SUSP 30 ML UDC PO (22:59)
[2024-09-26 23:00] VITALS: BP 97/63; PULSE 79; RESP 17; TEMP 36.8; O2SAT 99
== END 2024-09-26 23:14 | disposition home or self-care (01) ==
PROVIDERS: Nurse Practitioner Family; Emergency Provider Emergency Medicine
DX: O99.611 Diseases of the digestive system complicating pregnancy, first trimester (principal); K21.9 Gastro-esophageal reflux disease without esophagitis; Z3A.08 8 weeks gestation of pregnancy
CPT/HCPCS: 36415; 76705; 76801; 80053; 81001; 83690; 84702; 85025; 99284; A9270

== ENCOUNTER 2024-11-04 19:45 | Emergency (ER) | payer MEDICAID, SELFPAY ==
[2024-11-04 19:46] VITALS: BMI 34.7
[2024-11-04 19:55] VITALS: BP 111/77; PULSE 110; RESP 22; TEMP 36.8; O2SAT 99
[2024-11-04] MEDS: DEXAMETHASONE SOD PHOS INJ 10 MG/ML VIAL PO (20:06)
[2024-11-04] MEDS: predniSONE 20 MG TABLET 40 MG PO (20:06)
--- NOTE | 2024-11-04 20:23 | EDNOTE_ITS ---
ED Asthma RME/HPI General Chief Complaint: Asthma Stated Complaint: SOB, ASTHMA Time Seen by Provider: 11/04/24 19:57 Arrival date/time: 11/04/24 19:45 34F with history of asthma presents to ED with 1 day of cough and wheezing. Patient has been taking her controller inhaler (Flovent) as prescribed. Patient is also 15 weeks . Limitations: no limitations Related Data Home Medications ?Medication ?Instructions ?Recorded ?Confirmed semaglutide (weight loss) 1 mg/0.5 1 mg subcut QWEEK 0 03/31/24 06/30/24 mL subcutaneous pen injector (Wegovy) Previous Rx's ?Medication ?Instructions ?Recorded albuterol sulfate 90 mcg/actuation 2 inh inhalation QI D PRN shortness 09/02/24 aerosol inhaler of breath or wheezing #8.5 g donell aluminum-mag hydroxide-simethicone 10 ml PO TID PRN in digestion 09/26/24 400 mg-400 mg-40 mg/5 mL oral susp #3,000 mL (Maalox Maximum Strength) prednisone 50 mg tablet 50 mg PO QDAY 5 days #5 tabs 11/04/24 Allergies Allergy/AdvReac Type Severity Reaction Status Date / Time amoxicillin Allergy Severe rash Verified 11/04/24 19:45 Sulfa (Sulfonamide Allergy Severe RASH Verified 11/04/24 19:45 Antibiotics) Review of Systems Review of Systems Systems Reviewed: All systems reviewed, normal except as documented Constitutional Constitutional: Reports system reviewed and no additional complaints, except as documented, Denies fever(s) and Denies headache(s) ENT Ears, Nose, Mouth, and Throat: Denies disequilibrium and Denies headache(s) Cardiovascular Cardiovascular: Reports system reviewed and no additional complaints, except as documented and Denies chest pain Respiratory Respiratory: Reports system reviewed and no additional complaints, except as documented, Reports as per HPI, Reports cough and Reports wheezing Gastrointestinal Gastrointestinal: Reports system reviewed and no additional complaints, except as documented, Denies abdominal pain, Denies nausea and Denies vomiting Neurologic Neurologic: Reports system reviewed and no additional complaints, except as documented, Denies confusion, Denies disequilibrium and Denies headache(s) Psychiatric Psychiatric: Denies confusion Allergic/Immunologic Allergic/Immunologic: Reports wheezing Past Medical History Past Medical History NEUROLOGIC: Negative Neurological Disorders or Seizures CARDIAC: Negative Cardiac Disorders or Congestive Heart Failure RESPIRATORY: Positive Asthma; Negative Chronic Obstructive Pulmonary Disease (COPD) GASTROINTESTINAL: Negative Gastrointestinal Disorders or Hepatitis GENITOURINARY: Negative Genitourinary Disorders or Renal Disease REPRODUCTIVE: Positive Previous Pregnancies MUSCULOSKELETAL: Negative Musculoskeletal Disorders ENDOCRINE: Negative Endocrine Disorders, Diabetes Mellitus Type 1 or Diabetes Mellitus Type 2 HEMATOLOGIC: Negative Blood Disorders or Sickle Cell Disease OTHER HISTORY: Negative Hospitalization, Autoimmune Disease, Down Syndrome, Developmental Delay, Shingles, Falls, Blood Transfusions, Blood Transfusion Reaction, Anesthesia Reactions, Organ Transplant, Chemotherapy, Radiation Therapy, Hyperbaric Therapy, MRSA, VRSA, Vancomycin-Resistant Enterococci, Human Immunodeficiency Virus (HIV), Chicken Pox, Measles, Mumps, Rubella ([place] Measles), Pertussis, Clostridium Difficile or Cancer Family History FAMILY HISTORY: Negative Family Psychiatric Problems, Family Respiratory Disorders, Family Cardiac Disorders, Family Gastrointestinal Problems, Family Cancer, Family Surgery or Family Anesthesia Reaction Surgical History SURGICAL: Negative Section or Organ Transplant Social History SMOKING STATUS: Never smoker SUBSTANCE USE: does not use ED Exam General Limitations: Present no limitations General appearance: Present alert and in no apparent distress Head Head exam: Present atraumatic Eye Eye exam: Present normal appearance, PERRL and EOMI ENT ENT exam: Present normal exam, normal oropharynx and mucous membranes moist Neck Neck exam: Present normal inspection, full ROM and trachea midline Chest Chest inspection: Present normal inspection and symmetric chest wall rise Respiratory Respiratory exam: Present wheezes Cardiovascular Cardiovascular exam: Present regular rate, normal rhythm and normal heart sounds Abdominal Exam Abdominal exam: Present soft and normal bowel sounds Extremities Exam Extremities exam: Present normal inspection and full ROM Back Exam Back exam: Present normal inspection and full ROM Neurological Exam Neurological exam: Present alert, oriented X3 and CN II-XII intact Psychiatric Psychiatric exam: Present normal affect and normal mood Skin Skin exam: Present warm, dry, intact and normal color Course Quality Measures none Orders Category Date Time Status Albuterol/Ipratr Rt Fozia [Duoneb Rt Fozia] Med 11/04/24 20:20 Discontinued 6 ml INH X1 ONE Budesonide Rt [Pulmicort Rt Fozia] Med 11/04/24 20:20 Discontinued 0.5 mg INH X1 ONE Dexamethasone Inj [Decadron Inj] Med 11/04/24 19:58 Discontinued 10 mg PO X1 ONE Ipratropium Normandy Rt Fozia [Atrovent Rt Fozia] Med 11/04/24 19:59 Discontinued 1 mg INH X1 ONE Levalbuterol Rt [Xopenex Rt Fozia] Med 11/04/24 19:59 Discontinued 5 mg INH X1 ONE Sodium Chloride Rt Fozia 0.9% [NS Rt Fozia 0.9%] Med 11/04/24 19:59 Active 3 ml INH PRN PRN predniSONE Med 11/04/24 19:58 Discontinued 40 mg PO X1 ONE Vital Signs Vital signs: Vital Signs Temperature 98.3 F 11/04/24 19:55 Pulse Rate 110 H 11/04/24 19:55 Respiratory Rate 22 H 11/04/24 19:55 Blood Pressure 111/77 11/04/24 19:55 Pulse Oximetry (%) 99 11/04/24 19:55 Oxygen Delivery Method Room Air 11/04/24 19:55 Asthma MDM Narrative MDM Narrative:: 34F with history of asthma presents to ED with 1 day of cough and wheezing. Patient has been taking her controller inhaler (Flovent) as prescribed. Patient is also 15 weeks . Physical exam reveals wheezing and increased WOB. Patient is afebrile, calm, and alert. Meds relieved symptoms. Counseled needs to follow-up with PCP to optimize asthma regimen including to either up dose of ICS and/or introduce a LABA. Patient data External records reviewed:: [facility] previous records Clinical information provided by:: patient Social determinants that could affect healthcare access:: none Patient has the following chronic illnesses:: asthma How is presenting disease/condition affected by chronic disease/condition?: exacerbated by Evaluation data The following diagnostics were reviewed and interpreted by me:: other (specify) (none) Lab and/or radiology exams considered but not ordered:: not ordered Interpretation Summary: n/a Medications / Prescriptions Medications or Prescriptions considered but not ordered:: ordered Medication administrations:: Medication Administration History Sodium Chloride (Sodium Chloride Rt Fozia 0.9% 3 Ml Nebu) 3 ml INH PRN PRN PRN Reason: SOLN Stop: 12/04/24 19:58 Discontinued Medications Albuterol/Ipratropium (Albuterol/Ipratropium (Duoneb) Rt Fozia 3 Ml Nebu) 6 ml INH X1 ONE Stop: 11/04/24 20:21 Budesonide (Budesonide Rt 0.5 Mg/2 Ml Nebu) 0.5 mg INH X1 ONE Stop: 11/04/24 20:21 Dexamethasone Sodium Phosphate (Dexamethasone Sod Phos Inj 10 Mg/Ml Vial) 10 mg PO X1 ONE Stop: 11/04/24 19:59 Last Admin: 11/04/24 20:06 Dose: 10 mg Documented By: OA Ipratropium Normandy (Ipratropium Rt 0.5 Mg/ 2.5 Ml Nebu) 1 mg INH X1 ONE Stop: 11/04/24 20:00 Levalbuterol HCl (Levalbuterol Rt 1.25 Mg/0.5 Ml Nebu) 5 mg INH X1 ONE Stop: 11/04/24 20:00 Prednisone (Prednisone 20 Mg Tablet) 40 mg PO X1 ONE Stop: 11/04/24 19:59 Last Admin: 11/04/24 20:06 Dose: 40 mg Documented By: OA Consultations Consultation(s) initiated? (list below): No Diagnosis Differential diagnosis asthma: Acute exacerbation, Status asthmaticus, Acute asthmatic bronchitis, PE, Pneumonia, COPD exacerbation, Pulmonary edema systolic, Pulmonary edema dystolic, ARDS, Pneumothorax and Foreign body in trachea Most likely diagnosis given after review of the tests above:: asthma exacerbation Admission Indicated Admission indicated?: not indicated Admission Request Was there a request for admission?: No Disposition Plan Disposition Plan: Discharge Discharge Attestation Discharge Attestation: The patient and all family members were given an opportunity to ask questions and understood the discharge instructions. Discharge instructions specifically effects, indications for sooner follow up or return to the emergency department, and the expected course of current diagnosis. Patient condition: Stable Discharge Plan Plan Patient Disposition: HOME (Self Care) Disposition Comment: Stable Prescriptions/Referrals Prescriptions/Med Rec: New prednisone 50 mg tablet 50 mg PO QDAY 5 Days Qty: 5 0RF No Action albuterol sulfate 90 mcg/actuation HFA aerosol inhaler 2 inh inhalation QID PRN (Reason: shortness of breath or wheezing) Qty: 8.5 0RF Wegovy 1 mg/0.5 mL pen injector 1 mg SUBCUT QWEEK Patient Comments: ADMINISTER 1 MG UNDER THE SKIN WEEKLY alum-mag hydroxide-simeth [Maalox Maximum Strength] 400-400-40 mg/5 mL suspension 10 ml PO TID PRN (Reason: indigestion) Qty: 3000 0RF Referrals: Kristal Peralta PA-C [Primary Care Provider] - In 1 week Problem List Clinical Impression: Asthma exacerbation Patient/Caregiver Discharge Instructions Additional Instructions: Please follow-up with PCP within 24-48 hours and return immediately if symptoms worsen. Follow-up with PCP to optimize asthma regimen including increase in ICS dose and/or introduction of LABA. Print Language: Citizen Of [place] Stand Alone Forms: Patient Portal Info Letter PA/COMPUTER [employer]ERIC CONTROL SETTER Supervising Physician KALLIE/CHRISSIE Supervising Physician: Dr. Agrawal
[2024-11-04 20:31] VITALS: PULSE 96; RESP 20; O2SAT 99
[2024-11-04] MEDS: ALBUTEROL/IPRATROPIUM (Duoneb) RT SOL 3 ML NEBU 6 ML INH (20:31)
[2024-11-04] MEDS: BUDESONIDE RT 0.5 MG/2 ML NEBU INH (20:31)
[2024-11-04 21:29] VITALS: PULSE 99; RESP 19; O2SAT 99
== END 2024-11-04 23:43 | disposition home or self-care (01) ==
PROVIDERS: Emergency Provider Emergency Medicine; PCP Physician Assistant Medical
DX: O99.512 Diseases of the respiratory system complicating pregnancy, second trimester (principal); J45.901 Unspecified asthma with (acute) exacerbation; Z3A.15 15 weeks gestation of pregnancy
CPT/HCPCS: 94640; 99283; A9270; J1100; J7512

== ENCOUNTER 2024-11-16 18:05 | Emergency (ER) | payer MEDICAID, SELFPAY ==
[2024-11-16 18:06] VITALS: BMI 34.7
[2024-11-16 18:17] VITALS: BP 119/83; PULSE 116; RESP 18; TEMP 36.8; O2SAT 100; BMI 35.2
--- NOTE | 2024-11-16 18:31 | PD.EDRME ---
Rapid Medical Screening Exam RME Arrival date/time: 11/16/24 18:05 34-year-old G7, P6 approximately 17 weeks presents emergency department complaining of shortness of breath, palpitations, and chest pain. Chief Complaint: Shortness of Breath/Dyspnea Time Seen by Provider: 11/16/24 18:08 Vital signs: Vital Signs Temperature 98.2 F 11/16/24 18:17 Pulse Rate 116 H 11/16/24 18:17 Respiratory Rate 18 11/16/24 18:17 Blood Pressure 119/83 11/16/24 18:17 Pulse Oximetry (%) 100 11/16/24 18:17 Oxygen Delivery Method Room Air 11/16/24 18:17 Vital signs reviewed by provider: Yes
[2024-11-16 18:41] LABS: Basophils % (Auto) 0 % (0-2.5); Eosinophils # (Auto) 0.7 Thou/mm3 (0.0-0.5); Eosinophils % (Auto) 5 % (0-10); Hematocrit 34.9 % (36.0-46.0); Hemoglobin 11.7 g/dL (12.0-16.0); Immature Granulocytes % (Auto) 1 % (0-0); Immature Granulocytes Auto 0.07 Thou/mm3 (0.00-0.00); Lymphocytes % (Auto) 30 % (10-50); Mean Corpuscular HGB Conc 33.5 g/dl (31.0-37.0); Mean Corpuscular Hemoglobin 29.1 pg (25.0-35.0); Mean Corpuscular Volume 87 fL (80-100); Monocytes # (Auto) 0.8 Thou/mm3 (0.0-0.8); Monocytes % (Auto) 6 % (0-12); Neutrophils # (Auto) 7.8 Thou/mm3 (1.8-7.7); Neutrophils % (Auto) 58 % (37-80); Nucleated Red Blood Cell % 0 /100 WBC (0); Platelet Count 215 Thou/mm3 (140-440); RDW Standard Deviation 44.2 fL (36.4-46.3); Red Blood Count 4.02 Miln/mm3 (4.00-5.20); White Blood Count 13.4 Thou/mm3 (3.6-11.0)
[2024-11-16] MEDS: ACETAMINOPHEN 500 MG TABLET 1000 MG PO (18:41)
[2024-11-16 18:48] LABS: Collection Type, Urine Clean Catch
[2024-11-16 18:56] LABS: Partial Thromboplastin Time 24.8 Seconds (22.0-36.0); Prothrombin Time 10.5 Seconds (9.0-12.2)
[2024-11-16 18:58] LABS: B-Type Natriuretic Peptide < 20 pg/mL (0-100)
[2024-11-16 18:58] LABS: Bacteria,Urine Rare; Bilirubin,Urine Negative (Negative); Blood,Urine 2+ (Negative); Clarity,Urine Clear (Clear/Hazy); Color,Urine Lt-Yellow (Lt Yel-Yel); Culture Indicated,Urine Not Indicated; Glucose, Urine Negative (Negative); Ketones,Urine Negative (Negative); Leukocyte Esterase,Urine Negative (Negative); Nitrite,Urine Negative (Negative); PH,Urine 6.5 (5.0-7.0); Protein,Urine Negative (Neg - Trace); RBC,Urine 6 /hpf (0-3); Specific Gravity,Urine 1.019 (1.001-1.035); Squamous Epithelial Cell,Urine 2 /hpf (0-5); Urobilinogen,Urine Negative mg/dL (0.0-1.0); WBC,Urine 2 /hpf (0-5)
[2024-11-16 19:30] LABS: Alanine Aminotransferase 13 U/L (10-49); Albumin, Serum 3.7 gm/dL (3.5-5.0); Albumin/Globulin Ratio 1.4 (1.2-2.2); Alkaline Phosphatase 61 U/L (46-116); Anion Gap 8 (7-16); Aspartate Amino Transferase 18 U/L (0-34); BUN/Creatinine Ratio 18 Ratio (12-20); Bilirubin,Total 0.3 mg/dL (0.3-1.2); Blood Urea Nitrogen 9 mg/dL (9-23); Calcium 9.1 mg/dL (8.3-10.6); Calcium (Corrected) 9.3 mg/dL (8.5-10.1); Carbon Dioxide 24.1 mMol/L (20.0-31.0); Chloride 104 mMol/L (98-107); Creatinine (Component) 0.5 mg/dL (0.6-1.3); Estimated Creatinine Clearance 172.2 mL/min (>60); Globulin 2.6 gm/dL (2.3-3.5); Glucose 98 mg/dL (74-106); Magnesium 1.5 mg/dL (1.6-2.6); Osmolality,Calculated 270 (275-295); Potassium 3.5 mMol/L (3.4-5.1); Sodium 136 mMol/L (136-145); Total Protein 6.3 gm/dL (5.7-8.2); Troponin I < 0.002 ng/mL (0.0-0.045); eGFR > 60 See Note
[2024-11-16 20:07] LABS: Beta HCG,Quantitative 28135 mIU/mL (<5.0)
[2024-11-16 21:43] VITALS: BP 107/66; PULSE 89; RESP 20; TEMP 36.7; O2SAT 98
[2024-11-16 22:07] VITALS: PULSE 76
--- NOTE | 2024-11-16 22:13 | EDNOTE_ITS ---
ED General RME/HPI General Chief complaint: Shortness of Breath/Dyspnea Stated complaint: 17WKS PREG SOB, FAST HR, WEAKNESS Time Seen by Provider: 11/16/24 18:08 Arrival date/time: 11/16/24 18:05 CC: Chest pain shortness of breath tingling in both arms and the base of her neck. HPI onset 1 week ago patient is a G7, P6 at estimated 17 weeks denies any vaginal bleeding vaginal discharge. All of the symptoms been persistent for the last week. Patient states she has never had this in her prior pregnancies. Patient denies fever cough nausea vomiting or diarrhea. RME / HPI RME / HPI narrative: 11/16/24 18:05 34-year-old G7, P6 approximately 17 weeks presents emergency department complaining of shortness of breath, palpitations, and chest pain. Related Data Home Medications ?Medication ?Instructions ?Recorded ?Confirmed semaglutide (weight loss) 1 mg/0.5 1 mg subcut QWEEK 0 03/31/24 06/30/24 mL subcutaneous pen injector (Jason) Previous Rx's ?Medication ?Instructions ?Recorded albuterol sulfate 90 mcg/actuation 2 inh inhalation QI D PRN shortness 09/02/24 aerosol inhaler of breath or wheezing #8.5 g donell aluminum-mag hydroxide-simethicone 10 ml PO TID PRN in digestion 09/26/24 400 mg-400 mg-40 mg/5 mL oral susp #3,000 mL (Maalox Maximum Strength) Allergies Allergy/AdvReac Type Severity Reaction Status Date / Time amoxicillin Allergy Severe rash Verified 11/16/24 18:09 Sulfa (Sulfonamide Allergy Severe RASH Verified 11/16/24 18:09 Antibiotics) Review of Systems Review of Systems Narrative Review of Systems: GEN: No fever, no chills, no weight loss EYES: No discharge, no visual changes, no pain HEENT: No ear pain, no congestion, no sore throat PULM: + shortness of breath, no cough, no congestion CV: + chest pain, no dyspnea on exertion, no palpitations GI: No nausea, no vomiting, no diarrhea, no pain, no constipation : No frequency, no urgency, no dysuria MUSC/SKEL: No joint pain, no back pain SKIN: No rash PSYCH: No hallucinations, no depression HEME/LYMPH: No easy bleeding or bruising tendencies NEURO: No weakness, no headache Past Medical History Past Medical History NEUROLOGIC: Negative Neurological Disorders or Seizures CARDIAC: Negative Cardiac Disorders or Congestive Heart Failure RESPIRATORY: Positive Asthma; Negative Chronic Obstructive Pulmonary Disease (COPD) GASTROINTESTINAL: Negative Gastrointestinal Disorders or Hepatitis GENITOURINARY: Negative Genitourinary Disorders or Renal Disease REPRODUCTIVE: Positive Previous Pregnancies MUSCULOSKELETAL: Negative Musculoskeletal Disorders ENDOCRINE: Negative Endocrine Disorders, Diabetes Mellitus Type 1 or Diabetes Mellitus Type 2 HEMATOLOGIC: Negative Blood Disorders or Sickle Cell Disease OTHER HISTORY: Negative Hospitalization, Autoimmune Disease, Down Syndrome, Developmental Delay, Shingles, Falls, Blood Transfusions, Blood Transfusion Reaction, Anesthesia Reactions, Organ Transplant, Chemotherapy, Radiation Therapy, Hyperbaric Therapy, MRSA, VRSA, Vancomycin-Resistant Enterococci, Human Immunodeficiency Virus (HIV), Chicken Pox, Measles, Mumps, Rubella (Amharic Measles), Pertussis, Clostridium Difficile or Cancer Family History FAMILY HISTORY: Negative Family Psychiatric Problems, Family Respiratory Disorders, Family Cardiac Disorders, Family Gastrointestinal Problems, Family Cancer, Family Surgery or Family Anesthesia Reaction Surgical History SURGICAL: Negative Section or Organ Transplant Social History SMOKING STATUS: Never smoker SUBSTANCE USE: does not use ED Exam Narrative Physical exam: [General: Anxious, but not in any acute distress Head normocephalic HEENT: Eyes pupils are PERRLA EOMs are intact mouth pink moist membranes uvula is midline swallow symmetrical phonation is normal. No facial edema. All other subsystems of HEENT are within acceptable limits Neck is supple nontender Chest equal chest rise nontender to palpation Respiratory: Tachypneic, clear to auscultation no wheezes crackles or rubs CV: Rate rhythm is regular tachycardic, no murmurs rubs or clicks Abdomen is distended secondary to , soft nontender no masses positive bowel sounds all 4 quadrants Back: No CVA tenderness no spinous process tenderness from cervical spine thoracic and lumbar spine Skin: Intact no petechiae rash induration ulceration or crepitus Extremities: Moving all extremity against resistance cap refill less than 2 seconds neurosensory intact Neuro: Awake alert oriented x3 Glascow coma 15 no focal deficits] Course Quality Measures none Orders Category Date Time Status Bedside COVID-19 Antigen Test NOW Care 11/16/24 18:31 Completed Bedside Influenza A&B Antigen Test NOW Care 11/16/24 18:31 Completed EKG (ED ONLY) *Do not use* NOW Care 11/16/24 19:43 Completed EKG (ED Only) Stat Exams 11/16/24 19:43 Ordered US OB >= 14 wk fetus add gest Stat Exams 11/17/24 00:01 Completed BNP [B-Type Natriuretic Peptide] Stat Lab 11/16/24 18:31 Completed Beta HCG,Quantitative Stat Lab 11/16/24 18:31 Completed CBC Stat Lab 11/16/24 18:31 Completed CMP [Comprehensive Metabolic Panel] Stat Lab 11/16/24 18:31 Completed D-Dimer Stat Lab 11/16/24 18:31 Completed Mag [Magnesium] Stat Lab 11/16/24 18:31 Completed PT [Prothrombin Time with INR] Stat Lab 11/16/24 18:31 Completed PTT [Partial Thromboplastin Time] Stat Lab 11/16/24 18:31 Completed Troponin I Stat Lab 11/16/24 18:31 Completed Urinalysis, C/S if Indicated Stat Lab 11/16/24 18:37 Completed Acetaminophen Tab [Tylenol ES Tab] Med 11/16/24 18:31 Discontinued 1,000 mg PO X1 ONE Magnesium Oxide [Mag-Ox 400] Med 11/17/24 02:11 Discontinued 400 mg PO X1 ONE Vital Signs Vital signs: Vital Signs Temperature 98.2 F 11/16/24 18:17 Pulse Rate 116 H 11/16/24 18:17 Respiratory Rate 18 11/16/24 18:17 Blood Pressure 119/83 11/16/24 18:17 Pulse Oximetry (%) 100 11/16/24 18:17 Oxygen Delivery Method Room Air 11/16/24 18:17 [facility] Patient data External records reviewed:: [facility] previous records Clinical information provided by:: patient Social determinants that could affect healthcare access:: none Patient has the following chronic illnesses:: Currently asthma How is presenting disease/condition affected by chronic disease/condition?: u neffected by Evaluation data The following diagnostics were reviewed and interpreted by me:: lab results, radiology exam(s) and EKG tracing(s) Lab and/or radiology exams considered but not ordered:: EKG performed at 1832 shows a ventricular rate of 111 OR interval 150 QRS of 75 QTc of 390 this is sinus tachycardia. CBC shows a leukocytosis of 13.4 and H&H of 11.7 and 34.9 platelets of 215 Coags within acceptable limits CMP shows no significant electrolyte imbalances renal impairment transaminitis or T. bili elevation Mag of 1.5 Troponin is negative BNP is negative Urine is positive for 2+ blood 2 squamous epithelia 2 WBCs 6 RBCs COVID and influenza are negative Interpretation Summary: MDM see MDM Medications Medications considered but not ordered:: None Medication administrations:: Medication Administration History Discontinued Medications Acetaminophen (Acetaminophen 500 Mg Tablet) 1,000 mg PO X1 ONE Stop: 11/16/24 18:32 Last Admin: 11/16/24 18:41 Dose: 1,000 mg Documented By: Magnesium Oxide (Magnesium Oxide 400 Mg Tablet) 400 mg PO X1 ONE Stop: 11/17/24 02:12 Last Admin: 11/17/24 02:21 Dose: 400 mg Documented By: CVL None Consultations Consultation(s) initiated? (list below): No Diagnosis Differential Diagnosis ED Complaint MDM: ACS OR pneumonia Most likely diagnosis given after review of the tests above:: Chest pain Admission Indicated Admission indicated?: not indicated Explain why admission is indicated or not indicated:: Discharge follow-up Admission Request Was there a request for admission?: No Disposition Plan Disposition Plan: Discharge Discharge Attestation Discharge Attestation: The patient and all family members were given an opportunity to ask questions and understood the discharge instructions. Discharge instructions specifically effects, indications for sooner follow up or return to the emergency department, and the expected course of current diagnosis. Patient condition: Stable Medical Decision Making Differential Diagnosis Differential Diagnosis: ACS OR pneumonia Lab Data 11/16/24 18:31 11/16/24 18:31 Labs: Lab Results 11/16/24 11/16/24 Range/Units 18:31 18:37 WBC 13.4 H (3.6-11.0) Thou/mm3 RBC 4.02 (4.00-5.20) Miln/mm3 Hgb 11.7 L (12.0-16.0) g/dL Hct 34.9 L (36.0-46.0) % MCV 87 (80-100) fL MCH 29.1 (25.0-35.0) pg MCHC 33.5 (31.0-37.0) g/dl RDW Std Deviation 44.2 (36.4-46.3) fL Plt Count 215 (140-440) Thou/mm3 Neut % (Auto) 58 (37-80) % Lymph % (Auto) 30 (10-50) % [place] % (Auto) 6 (0-12) % Eos % (Auto) 5 (0-10) % Baso % (Auto) 0 (0-2.5) % Neut # (Auto) 7.8 H (1.8-7.7) Thou/mm3 Lymph # (Auto) 4.0 (1.0-4.8) Thou/mm3 [place] # (Auto) 0.8 (0.0-0.8) Thou/mm3 Eos # (Auto) 0.7 H (0.0-0.5) Thou/mm3 Baso # (Auto) 0.0 (0.0-0.2) Thou/mm3 Immature Gran # (Auto) 0.07 H (0.00-0.00) Thou/mm3 Absolute Nucleated RBC 0.00 (0.00-0.00) Thou/mm3 Immature Gran % 1 H (0-0) % Nucleated RBC % 0 (0) /100 WBC PT 10.5 (9.0-12.2) Seconds INR 1.0 (0.9-1.3) APTT 24.8 (22.0-36.0) Seconds D-Dimer 480 (<600) ng/mL Sodium 136 (136-145) mMol/L Potassium 3.5 (3.4-5.1) mMol/L Chloride 104 (98-107) mMol/L Carbon Dioxide 24.1 (20.0-31.0) mMol/L Anion Gap 8 (7-16) BUN 9 (9-23) mg/dL Creatinine 0.5 L (0.6-1.3) mg/dL Estim Creat Clear Calc 172.2 (>60) mL/min eGFR > 60 (60 - ) See Note BUN/Creatinine Ratio 18 (12-20) Ratio Glucose 98 (74-106) mg/dL Calculated Osmolality 270 L (275-295) Calcium 9.1 (8.3-10.6) mg/dL Corrected Calcium 9.3 (8.5-10.1) mg/dL Magnesium 1.5 L (1.6-2.6) mg/dL Total Bilirubin 0.3 (0.3-1.2) mg/dL AST 18 (0-34) U/L ALT 13 (10-49) U/L Alkaline Phosphatase 61 (46-116) U/L Troponin I < 0.002 (0.0-0.045) ng/mL B-Natriuretic Peptide < 20 (0-100) pg/mL Total Protein 6.3 (5.7-8.2) gm/dL Albumin 3.7 (3.5-5.0) gm/dL Globulin 2.6 (2.3-3.5) gm/dL Albumin/Globulin Ratio 1.4 (1.2-2.2) Beta HCG, Quant 71006 (<5.0) mIU/mL Ur Collection Type Clean Catch Urine Color Lt-Yellow (Lt Yel-Yel) Urine Clarity Clear (Clear/Hazy) Urine pH 6.5 (5.0-7.0) Ur Specific [place] 1.019 (1.001-1.035) Urine Protein Negative (Neg - Trace) Urine Glucose (UA) Negative (Negative) Urine Ketones Negative (Negative) Urine Blood 2+ A (Negative) Urine Nitrite Negative (Negative) Urine Bilirubin Negative (Negative) Urine Urobilinogen (Auto) Negative (0.0-1.0) mg/dL Ur Leukocyte Esterase Negative (Negative) Urine RBC 6 H (0-3) /hpf Urine WBC 2 (0-5) /hpf Ur Squamous Epith Cells 2 (0-5) /hpf Urine Bacteria Rare (None) Ur Culture Indicated? Not Indicated Discharge Plan Plan Patient Disposition: HOME (Self Care) Prescriptions/Referrals Prescriptions/Med Rec: No Action albuterol sulfate 90 mcg/actuation HFA aerosol inhaler 2 inh inhalation QID PRN (Reason: shortness of breath or wheezing) Qty: 8.5 0RF Wegovy 1 mg/0.5 mL pen injector 1 mg SUBCUT QWEEK Patient Comments: ADMINISTER 1 MG UNDER THE SKIN WEEKLY alum-mag hydroxide-simeth [Maalox Maximum Strength] 400-400-40 mg/5 mL suspension 10 ml PO TID PRN (Reason: indigestion) Qty: 3000 0RF Referrals: Kristal Peralta PA-C [Primary Care Provider] - In 1 week Problem List Clinical Impression: Shortness of breath Patient/Caregiver Discharge Instructions Education Materials: ED Shortness of Breath (Dyspnea) Additional Instructions: Today your urine showed that you had a little bit of bacteria. You have elected to wait and follow-up with your [facility] and/or primary care in the next 72 hours to get the results of the urine culture. Please return to emergency department if you are feeling worse, or not eating or drinking, any burning when you urinate, fever, back pain or any other concerns. Print Language: Russian Stand Alone Forms: Bree Award Info., Patient Portal Info Letter
[2024-11-16 22:49] LABS: D-Dimer 480 ng/mL (<600)
--- NOTE | 2024-11-17 00:01 | XR_ITS ---
Examination: age Limited Technique: Limited transabdominal sonographic images pelvis Exam date and time: November 17, 2024 at 12:37 AM Indications: Weakness beginning one week Findings: Viable intrauterine gestation transverse presentation head maternal right Cardiac motion 153 BPM Placenta anterior grade 2 Umbilical cord insertion seen Amniotic fluid largest pocket 3.27 Cervix 4.70 cm Ovaries obscured by bowel gas Estimated gestational age 16 weeks 3 days Estimated weight 154 g Impression: Viable intrauterine gestation transverse presentation head maternal right Cardiac motion 153 BPM Placenta anterior grade 2
--- NOTE | 2024-11-17 01:24 | PRELIM_ITS ---
Obstetric ultrasound. November 17, 2024 at 0037 hours Clinical history: Palpitations. Comparison: None Findings: There is a gravid uterus with a live fetus in transverse (maternal right) presentation of mean gestational age 16 weeks and 3 days (by biometry). cardiac activity is present at a heart rate of 153 beats per minute. The placenta is anterior in location, maturity grade II. There is no evidence of placenta previa or retroplacental hemorrhage. Amniotic fluid is adequate (NINA = with largest vertical pocket of 3.3 cm). Estimated weight is 154 grams+/- 23 grams. Estimated due date by ultrasound is 05/01/2025. The cervical length measures 4.7 cm. The ovaries are obscured by bowel gas and are not evaluated on this examination. Impression: Gravid uterus with a single live fetus in transverse (maternal right) presentation of mean gestational age 16 weeks 3 days. Report Electronically Signed By: Ravinder Clayton 11/17/2024 1:23:35 AM [EST]
[2024-11-17 01:35] VITALS: BP 95/67; PULSE 81; RESP 18; TEMP 36.6; O2SAT 98
--- NOTE | 2024-11-17 02:15 | PD.EDADDENDU ---
Emergency Room Addendum Addendum Narrative: This patient was signed out to me pending ultrasound. Labs are reviewed. Magnesium slightly low and it is replaced. Patient has asymptomatic bacteriuria. We discussing risks benefits of being treated versus waiting and at this time the patient would like to wait and follow-up with her [facility] in 72 hours for the urine culture result. She is aware that she should return For symptoms that got worse which I told her. Otherwise her ultrasound is interpreted and read by me. The patient is heart rate 153 and has intrauterine approximately 6 weeks 5 days. Pending radiology review.
[2024-11-17] MEDS: MAGNESIUM OXIDE 400 MG TABLET PO (02:21)
[2024-11-17 02:22] VITALS: PULSE 86; RESP 18
== END 2024-11-17 02:23 | disposition home or self-care (01) ==
PROVIDERS: Registered Nurse General Practice; Emergency Provider Emergency Medicine; PCP Physician Assistant Medical
DX: O99.891 Other specified diseases and conditions complicating pregnancy (principal); R06.02 Shortness of breath; R00.0 Tachycardia, unspecified; D72.829 Elevated white blood cell count, unspecified; O99.512 Diseases of the respiratory system complicating pregnancy, second trimester; J45.909 Unspecified asthma, uncomplicated; Z3A.17 17 weeks gestation of pregnancy
CPT/HCPCS: 36415; 76810; 80053; 81001; 83735; 83880; 84484; 84702; 85025; 85379; 85610; 85730; 87400; 87811; 93005; 99284; A9270

== ENCOUNTER 2024-11-30 18:41 | Emergency (ER) | payer MEDICAID, SELFPAY ==
[2024-11-30 19:04] VITALS: BP 106/71; PULSE 98; RESP 18; TEMP 36.4; O2SAT 99; BMI 29.2
--- NOTE | 2024-11-30 19:07 | EDRME_ITS ---
Rapid Medical Screening Exam [facility] Arrival date/time: 11/30/24 18:41 34F at approximately 19 weeks and with history of asthma presents to ED with several days of lower ab/pelvic/back pain. Possibly dysuria, but denies vaginal bleeding and N/V. Chief Complaint: Abdominal Pain Vital signs: Vital Signs Temperature 97.6 F 11/30/24 19:04 Pulse Rate 98 11/30/24 19:04 Respiratory Rate 18 11/30/24 19:04 Blood Pressure 106/71 11/30/24 19:04 Pulse Oximetry (%) 99 11/30/24 19:04 Oxygen Delivery Method Room Air 11/30/24 19:04
--- NOTE | 2024-11-30 19:07 | XR_ITS ---
Examination: Complete OB ultrasound greater than 14 weeks Date and time of exam: November 30, 2024 1916 hrs. Indications: Pelvic pain beginning 3 days ago Findings: Viable intrauterine single fetus with single amniotic sac presentation cephalic Cardiac motion 144 BPM Placenta posterior grade 2 Umbilical cord insertion 3 vessel seen Amniotic fluid adequate spine maternal left Cervix 3.9 cm Ovaries obscured by bowel gas Composite estimated gestational age based on BPD, head circumference, abdominal circumference, femur length is 18 weeks 4 days Estimated weight 241 g. Survey of intracranial anatomy, spinal anatomy, abdominal anatomy, four-chamber heart performed with no abnormalities identified. Impression: Viable intrauterine gestation cephalic presentation.
[2024-11-30 19:29] LABS: Basophils % (Auto) 0 % (0-2.5); Eosinophils # (Auto) 0.7 Thou/mm3 (0.0-0.5); Eosinophils % (Auto) 7 % (0-10); Hematocrit 32.4 % (36.0-46.0); Hemoglobin 10.9 g/dL (12.0-16.0); Immature Granulocytes % (Auto) 0 % (0-0); Immature Granulocytes Auto 0.04 Thou/mm3 (0.00-0.00); Lymphocytes # (Auto) 2.6 Thou/mm3 (1.0-4.8); Lymphocytes % (Auto) 26 % (10-50); Mean Corpuscular HGB Conc 33.6 g/dl (31.0-37.0); Mean Corpuscular Hemoglobin 29.4 pg (25.0-35.0); Mean Corpuscular Volume 87 fL (80-100); Monocytes # (Auto) 0.7 Thou/mm3 (0.0-0.8); Monocytes % (Auto) 7 % (0-12); Neutrophils % (Auto) 60 % (37-80); Nucleated Red Blood Cell % 0 /100 WBC (0); Platelet Count 258 Thou/mm3 (140-440); RDW Standard Deviation 45.6 fL (36.4-46.3); Red Blood Count 3.71 Miln/mm3 (4.00-5.20)
[2024-11-30 19:46] LABS: Collection Type, Urine Clean Catch
[2024-11-30 19:49] LABS: Albumin, Serum 3.6 gm/dL (3.5-5.0); Albumin/Globulin Ratio 1.4 (1.2-2.2); Alkaline Phosphatase 59 U/L (46-116); Anion Gap 8 (7-16); Aspartate Amino Transferase 12 U/L (0-34); BUN/Creatinine Ratio 14 Ratio (12-20); Bilirubin,Total 0.3 mg/dL (0.3-1.2); Blood Urea Nitrogen 7 mg/dL (9-23); Calcium 8.7 mg/dL (8.3-10.6); Chloride 105 mMol/L (98-107); Creatinine (Component) 0.5 mg/dL (0.6-1.3); Estimated Creatinine Clearance 162.3 mL/min (>60); Globulin 2.5 gm/dL (2.3-3.5); Glucose 66 mg/dL (74-106); Osmolality,Calculated 269 (275-295); Potassium 3.2 mMol/L (3.4-5.1); Sodium 137 mMol/L (136-145); Total Protein 6.1 gm/dL (5.7-8.2); eGFR > 60 See Note
[2024-11-30 19:51] LABS: Bacteria,Urine Rare; Bilirubin,Urine Negative (Negative); Blood,Urine 1+ (Negative); Clarity,Urine Clear (Clear/Hazy); Color,Urine Lt-Yellow (Lt Yel-Yel); Culture Indicated,Urine Not Indicated; Glucose, Urine Negative (Negative); Ketones,Urine Negative (Negative); Leukocyte Esterase,Urine Negative (Negative); Nitrite,Urine Negative (Negative); Protein,Urine Negative (Neg - Trace); RBC,Urine 1 /hpf (0-3); Specific Gravity,Urine 1.006 (1.001-1.035); Squamous Epithelial Cell,Urine 1 /hpf (0-5); Urobilinogen,Urine Negative mg/dL (0.0-1.0); WBC,Urine 1 /hpf (0-5)
[2024-11-30 20:16] LABS: Alanine Aminotransferase 9 U/L (10-49)
[2024-11-30 20:22] LABS: Beta HCG,Quantitative 19011 mIU/mL (<5.0)
--- NOTE | 2024-11-30 21:40 | EDNOTE_ITS ---
ED Abdominal Pain RME/HPI General Chief Complaint: Abdominal Pain Stated complaint: 19 WKS PREG, LOWER ABD PAIN GOING TO BACK X 3 DAYS Arrival date/time: 11/30/24 18:41 Limitations: no limitations RME / HPI RME / HPI narrative: 11/30/24 18:41 34F at approximately 19 weeks and with history of asthma presents to ED with several days of lower ab/pelvic/back pain. Possibly dysuria, but denies vaginal bleeding and N/V. Dr. Witt's Main ED Evaluation: 34yo female who is ~19 weeks gestation presents to the ED for a chief complaint of lower abdominal and back cramping x today. Patient states her pain was persistent and she was concerned, so she came in for evaluation. She denies any fever, chills, dysuria, vaginal bleeding, N/V or any other associated symptoms. Related Data Home Medications ?Medication ?Instructions ?Recorded ?Confirmed semaglutide (weight loss) 1 mg/0.5 1 mg subcut QWEEK 0 03/31/24 06/30/24 mL subcutaneous pen injector (Wegovy) Previous Rx's ?Medication ?Instructions ?Recorded albuterol sulfate 90 mcg/actuation 2 inh inhalation QI D PRN shortness 09/02/24 aerosol inhaler of breath or wheezing #8.5 g donell aluminum-mag hydroxide-simethicone 10 ml PO TID PRN in digestion 09/26/24 400 mg-400 mg-40 mg/5 mL oral susp #3,000 mL (Maalox Maximum Strength) nitrofurantoin macrocrystal 100 mg 100 mg PO BID #20 c aps 11/30/24 capsule Allergies Allergy/AdvReac Type Severity Reaction Status Date / Time amoxicillin Allergy Severe rash Verified 11/30/24 18:44 Sulfa (Sulfonamide Allergy Severe RASH Verified 11/30/24 18:44 Antibiotics) Review of Systems Review of Systems Systems Reviewed: All systems reviewed, normal except as documented Past Medical History Past Medical History NEUROLOGIC: Negative Neurological Disorders or Seizures CARDIAC: Negative Cardiac Disorders or Congestive Heart Failure RESPIRATORY: Positive Asthma; Negative Chronic Obstructive Pulmonary Disease (COPD) GASTROINTESTINAL: Negative Gastrointestinal Disorders or Hepatitis GENITOURINARY: Negative Genitourinary Disorders or Renal Disease REPRODUCTIVE: Positive Previous Pregnancies MUSCULOSKELETAL: Negative Musculoskeletal Disorders ENDOCRINE: Negative Endocrine Disorders, Diabetes Mellitus Type 1 or Diabetes Mellitus Type 2 HEMATOLOGIC: Negative Blood Disorders or Sickle Cell Disease OTHER HISTORY: Negative Hospitalization, Autoimmune Disease, Down Syndrome, Developmental Delay, Shingles, Falls, Blood Transfusions, Blood Transfusion Reaction, Anesthesia Reactions, Organ Transplant, Chemotherapy, Radiation Therapy, Hyperbaric Therapy, MRSA, VRSA, Vancomycin-Resistant Enterococci, Human Immunodeficiency Virus (HIV), Chicken Pox, Measles, Mumps, Rubella (Chinese Measles), Pertussis, Clostridium Difficile or Cancer Family History FAMILY HISTORY: Negative Family Psychiatric Problems, Family Respiratory Disorders, Family Cardiac Disorders, Family Gastrointestinal Problems, Family Cancer, Family Surgery or Family Anesthesia Reaction Surgical History SURGICAL: Negative Section or Organ Transplant Social History SMOKING STATUS: Never smoker SUBSTANCE USE: does not use ED Exam General Limitations: Present no limitations General appearance: Present alert and in no apparent distress Head Head exam: Present atraumatic Eye Eye exam: Present normal appearance, PERRL and EOMI ENT ENT exam: Present normal exam, normal oropharynx and mucous membranes moist Neck Neck exam: Present normal inspection, full ROM and trachea midline Chest Chest inspection: Present normal inspection and symmetric chest wall rise Respiratory Respiratory exam: Present normal lung sounds bilaterally Cardiovascular Cardiovascular exam: Present regular rate, normal rhythm and normal heart sounds Abdominal Exam Abdominal exam: Present soft and other (gravid); Absent tenderness Extremities Exam Extremities exam: Present normal inspection and full ROM; Absent pedal edema Back Exam Back exam: Present normal inspection and full ROM; Absent CVA tenderness (R) or CVA tenderness (L) Neurological Exam Neurological exam: Present alert, oriented X3 and CN II-XII intact Psychiatric Psychiatric exam: Present normal affect and normal mood Skin Skin exam: Present warm, dry, intact and normal color Course Quality Measures none Orders Category Date Time Status US OB >= 14 weeks Fetus Stat Exams 11/30/24 19:07 Completed Beta HCG,Quantitative Stat Lab 11/30/24 19:15 Completed CBC Stat Lab 11/30/24 19:15 Completed CMP [Comprehensive Metabolic Panel] Stat Lab 11/30/24 19:15 Completed Urinalysis, C/S if Indicated Stat Lab 11/30/24 19:28 Completed Urine Culture Stat Lab 11/30/24 19:28 Completed Nitrofurantoin Macro [Macrobid] Med 11/30/24 21:47 Discontinued 100 mg PO X1 ONE Vital Signs Vital signs: Vital Signs Temperature 97.6 F 11/30/24 19:04 Pulse Rate 98 11/30/24 19:04 Respiratory Rate 18 11/30/24 19:04 Blood Pressure 106/71 11/30/24 19:04 Pulse Oximetry (%) 99 11/30/24 19:04 Oxygen Delivery Method Room Air 11/30/24 19:04 Abdominal Pain MDM Patient data External records reviewed:: [facility] previous records (Per chart review, patient was seen here on 11/17/24 for shortness of breath.) Clinical information provided by:: patient Social determinants that could affect healthcare access:: none Patient has the following chronic illnesses:: asthma How is presenting disease/condition affected by chronic disease/condition?: no chronic disease Evaluation data The following diagnostics were reviewed and interpreted by me:: lab results and radiology exam(s) Lab and/or radiology exams considered but not ordered:: none Interpretation Summary: WBC count is normal, HnH is stable, Potassium is 3.2, Gl[place] 66[place] [address], UA shows rare bacteria, according to my interpretation. -------- [place] [facility] Report Signed Patient: ALEM GLASER Record#: [id number] Birthdate: 1990 Age/Sex: 34 / F Location: [facility] Attending Dr: Ordering Physician: Iraj Bearden PA-C Date of Service: 11/30/24 Procedure(s): US OB >= 14 weeks Fetus Accession Number(s): [id number] cc: Kristal Peralta PA-C; Yasir Greene MD; Iraj Bearden PA-C~ Examination: Complete OB ultrasound greater than 14 weeks Date and time of exam: November 30, 2024 1916 hrs. Indications: Pelvic pain beginning 3 days ago Findings: Viable intrauterine single fetus with single amniotic sac presentation cephalic Cardiac motion 144 BPM Placenta posterior grade 2 Umbilical cord insertion 3 vessel seen Amniotic fluid adequate spine maternal left Cervix 3.9 cm Ovaries obscured by bowel gas Composite estimated gestational age based on BPD, head circumference, abdominal circumference, femur length is 18 weeks 4 days Estimated weight 241 g. Survey of intracranial anatomy, spinal anatomy, abdominal anatomy, four-chamber heart performed with no abnormalities identified. Impression: Viable intrauterine gestation cephalic presentation. Dictated By: Yasir Greene MD Signed By: <Electronically signed by Yasir Greene MD in OV> 11/30/24 2200 Medications / Prescriptions Medications or Prescriptions considered but not ordered:: none Medication administrations:: Medication Administration History Discontinued Medications Nitrofurantoin Macrocrystals (Nitrofurantoin Macro 100 Mg Capsule) 100 mg PO X1 ONE Stop: 11/30/24 21:48 Last Admin: 11/30/24 22:14 Dose: 100 mg Documented By: CVL see above, if any Consultations Consultation(s) initiated? (list below): No Diagnosis Differential diagnosis abdominal pain: other (asymptomatic bacturia, kidney stone, UTI, dehydration) Most likely diagnosis given after review of the tests above:: see clinical impression below Admission Indicated Admission indicated?: not indicated Admission Request Was there a request for admission?: No Disposition Plan Disposition Plan: Discharge Discharge Attestation Discharge Attestation: The patient and all family members were given an opportunity to ask questions and understood the discharge instructions. Discharge instructions specifically effects, indications for sooner follow up or return to the emergency department, and the expected course of current diagnosis. Patient condition: Stable Discharge Plan Plan Patient Disposition: HOME (Self Care) Patient condition on transfer: Stable Prescriptions/Referrals Prescriptions/Med Rec: New nitrofurantoin macrocrystal 100 mg capsule 100 mg PO BID Qty: 20 0RF Rx Instructions: must administer with a meal/food No Action albuterol sulfate 90 mcg/actuation HFA aerosol inhaler 2 inh inhalation QID PRN (Reason: shortness of breath or wheezing) Qty: 8.5 0RF Wegovy 1 mg/0.5 mL pen injector 1 mg SUBCUT QWEEK Patient Comments: ADMINISTER 1 MG UNDER THE SKIN WEEKLY alum-mag hydroxide-simeth [Maalox Maximum Strength] 400-400-40 mg/5 mL suspension 10 ml PO TID PRN (Reason: indigestion) Qty: 3000 0RF Referrals: Kristal Peralta PA-C [Primary Care Provider] - In 1 week Problem List Clinical Impression: Asymptomatic bacteriuria during Patient/Caregiver Discharge Instructions Education Materials: Dysuria Additional Instructions: 1. The ultrasound shows that the baby is at 18 weeks 4 days. 2. You have some bacteria in your urine. You have elected to take antibiotics as opposed to waiting to the urine culture comes back. It can take up to 3 days for the culture to come back. Please follow-up with your primary care in 72 hours to get the results of the urine culture. 3. If you start having any vomiting, flank pain, any burning when you urinate or have fevers you need to return immediately to the emergency department to ensure that you do not not have a kidney infection. Print Language: Cape Verdean Stand Alone Forms: Bree Award Info., Patient Portal Info Letter
[2024-11-30] MEDS: NITROFURANTOIN MACRO 100 MG CAPSULE PO (22:14)
[2024-11-30 22:16] VITALS: RESP 18
== END 2024-11-30 22:16 | disposition home or self-care (01) ==
PROVIDERS: Physician Assistant; Emergency Provider Emergency Medicine; PCP Physician Assistant Medical
DX: O26.892 Other specified pregnancy related conditions, second trimester (principal); R82.71 Bacteriuria; Z3A.19 19 weeks gestation of pregnancy; O99.512 Diseases of the respiratory system complicating pregnancy, second trimester; J45.909 Unspecified asthma, uncomplicated
CPT/HCPCS: 36415; 76805; 80053; 81001; 84702; 85025; 87086; 99284; A9270

== ENCOUNTER 2024-12-02 04:10 | Emergency (ER) | payer MEDICAID, SELFPAY ==
[2024-12-02 04:12] VITALS: BMI 37.8
[2024-12-02 04:20] VITALS: BP 102/70; PULSE 104; RESP 19; TEMP 36.9; O2SAT 97
--- NOTE | 2024-12-02 04:45 | PD.EDRME ---
Rapid Medical Screening Exam [facility] Arrival date/time: 12/02/24 04:10 34F with history of asthma presents to ED with 1 day of SOB and wheezing. Patient is currently about 19/20 weeks . Chief Complaint: Asthma Vital signs: Vital Signs Temperature 98.4 F 12/02/24 04:20 Pulse Rate 104 H 12/02/24 04:20 Respiratory Rate 19 12/02/24 04:20 Blood Pressure 102/70 12/02/24 04:20 Pulse Oximetry (%) 97 12/02/24 04:20 Oxygen Delivery Method Room Air 12/02/24 04:20
[2024-12-02 05:02] VITALS: PULSE 95; RESP 20; O2SAT 98
[2024-12-02] MEDS: ALBUTEROL/IPRATROPIUM (Duoneb) RT SOL 3 ML NEBU 6 ML INH (05:02)
[2024-12-02] MEDS: DEXAMETHASONE SOD PHOS INJ 10 MG/ML VIAL PO (05:32)
[2024-12-02] MEDS: predniSONE 20 MG TABLET 40 MG PO (05:34)
--- NOTE | 2024-12-02 06:14 | PD.EDADULT ---
ED General RME/HPI General Chief complaint: Asthma Stated complaint: DIFFICULTY BREATHING, ASTHMA Time Seen by Provider: 12/02/24 06:04 Arrival date/time: 12/02/24 04:10 CC: Asthma tach HPI patient is a G7, P6 at 18 weeks with wheezing. Mother states that she takes nebulizers every 6 hours, with breakthrough albuterol, states she is having increased wheezing over the past 24 hours. Patient denies vaginal bleeding vaginal discharge painful urination or bloody urination. Vital signs show the patient is not in any acute distress. A but audible expiratory wheezing. At the time of the exam at 0 615 the patient has minimal expiratory wheezing in the left upper lobe the balance of the lung jim are clear patient speaking in full sentences no nasal flaring or audible expiratory wheezing RME / HPI RME / HPI narrative: 12/02/24 04:10 34F with history of asthma presents to ED with 1 day of SOB and wheezing. Patient is currently about 19/20 weeks . Related Data Home Medications ?Medication ?Instructions ?Recorded ?Confirmed semaglutide (weight loss) 1 mg/0.5 1 mg subcut QWEEK 03/31/24 06/30/24 mL subcutaneous pen injector (Bevii) Previous Rx's ?Medication ?Instructions ?Recorded albuterol sulfate 90 mcg/actuation 2 inh inhalation QID PRN shortness 09/02/24 aerosol inhaler of breath or wheezing #8.5 grams aluminum-mag hydroxide-simethicone 10 ml PO TID PRN indigestion 09/26/24 400 mg-400 mg-40 mg/5 mL oral susp #3,000 mL (Maalox Maximum Strength) nitrofurantoin macrocrystal 100 mg 100 mg PO BID #20 caps 11/30/24 capsule Allergies Allergy/AdvReac Type Severity Reaction Status Date / Time amoxicillin Allergy Severe rash Verified 11/30/24 18:44 Sulfa (Sulfonamide Allergy Severe RASH Verified 11/30/24 18:44 Antibiotics) Review of Systems Review of Systems Narrative Review of Systems: GEN: No fever, no chills, no weight loss EYES: No discharge, no visual changes, no pain HEENT: No ear pain, no congestion, no sore throat PULM: No shortness of breath, no cough, no congestion, + wheezing CV: No chest pain, no dyspnea on exertion, no palpitations GI: No nausea, no vomiting, no diarrhea, no pain, no constipation : No frequency, no urgency, no dysuria MUSC/SKEL: No joint pain, no back pain SKIN: No rash PSYCH: No hallucinations, no depression HEME/LYMPH: No easy bleeding or bruising tendencies NEURO: No weakness, no headache Past Medical History Past Medical History NEUROLOGIC: Negative Neurological Disorders or Seizures CARDIAC: Negative Cardiac Disorders or Congestive Heart Failure RESPIRATORY: Positive Asthma; Negative Chronic Obstructive Pulmonary Disease (COPD) GASTROINTESTINAL: Negative Gastrointestinal Disorders or Hepatitis GENITOURINARY: Negative Genitourinary Disorders or Renal Disease REPRODUCTIVE: Positive Previous Pregnancies MUSCULOSKELETAL: Negative Musculoskeletal Disorders ENDOCRINE: Negative Endocrine Disorders, Diabetes Mellitus Type 1 or Diabetes Mellitus Type 2 HEMATOLOGIC: Negative Blood Disorders or Sickle Cell Disease OTHER HISTORY: Negative Hospitalization, Autoimmune Disease, Down Syndrome, Developmental Delay, Shingles, Falls, Blood Transfusions, Blood Transfusion Reaction, Anesthesia Reactions, Organ Transplant, Chemotherapy, Radiation Therapy, Hyperbaric Therapy, MRSA, VRSA, Vancomycin-Resistant Enterococci, Human Immunodeficiency Virus (HIV), Chicken Pox, Measles, Mumps, Rubella (Czech Measles), Pertussis, Clostridium Difficile or Cancer Family History FAMILY HISTORY: Negative Family Psychiatric Problems, Family Respiratory Disorders, Family Cardiac Disorders, Family Gastrointestinal Problems, Family Cancer, Family Surgery or Family Anesthesia Reaction Surgical History SURGICAL: Negative Section or Organ Transplant Social History SMOKING STATUS: Never smoker SUBSTANCE USE: does not use ED Exam Narrative Physical exam: [General: Obese not in any acute distress Head normocephalic HEENT: Within acceptable limits Neck is supple nontender Chest equal chest rise nontender to palpation Respiratory: Subtle and expiratory wheezing on auscultation in the left upper lobe otherwise clear to auscultation no wheezes crackles or rubs CV: Rate rhythm is regular no murmurs rubs or clicks Abdomen is distended secondary to body habitus soft nontender no masses positive bowel sounds all 4 quadrants heart tones assessed in the left lower quadrant heart rate 140-1 50 good variability. Back: No CVA tenderness no spinous process tenderness from cervical spine thoracic and lumbar spine Skin: Intact no petechiae rash induration ulceration or crepitus Extremities: Moving all extremity against resistance cap refill less than 2 seconds neurosensory intact. No lower extremity edema Neuro: Awake alert oriented x3 Glascow coma 15 no focal deficits] Course Quality Measures none Orders Category Date Time Status heart tone auscultation NOW Care 12/02/24 06:05 Active Albuterol/Ipratr Rt Fozia [Duoneb Rt Fozia] Med 12/02/24 04:50 Discontinued 6 ml .ROUTE .STK-MED ONE Albuterol/Ipratr Rt Fozia [Duoneb Rt Fozia] Med 12/02/24 04:44 Discontinued 6 ml INH X1 ONE Dexamethasone Inj [Decadron Inj] Med 12/02/24 04:44 Discontinued 10 mg PO X1 ONE predniSONE Med 12/02/24 04:44 Discontinued 40 mg PO X1 ONE Vital Signs Vital signs: Vital Signs Temperature 98.4 F 12/02/24 04:20 Pulse Rate 104 H 12/02/24 04:20 Respiratory Rate 19 12/02/24 04:20 Blood Pressure 102/70 12/02/24 04:20 Pulse Oximetry (%) 97 12/02/24 04:20 Oxygen Delivery Method Room Air 12/02/24 04:20 [facility] Patient data External records reviewed:: [facility] previous records Clinical information provided by:: patient Social determinants that could affect healthcare access:: none Patient has the following chronic illnesses:: obesity How is presenting disease/condition affected by chronic disease/condition?: uneffected by Evaluation data The following diagnostics were reviewed and interpreted by me:: other (specify) (None) Lab and/or radiology exams considered but not ordered:: None Interpretation Summary: Mild asthma Medications Medications considered but not ordered:: None Medication administrations:: Medication Administration History Discontinued Medications Albuterol/Ipratropium (Albuterol/Ipratropium (Duoneb) Rt Fozia 3 Ml Nebu) 6 ml INH X1 ONE Stop: 12/02/24 04:45 Last Admin: 12/02/24 05:02 Dose: 6 ml Documented By: NE Comments: medication override per Monisha Galo PA-C Albuterol/Ipratropium (Albuterol/Ipratropium (Duoneb) Rt Fozia 3 Ml Nebu) Confirm Administered Dose 6 ml .ROUTE .STK-MED ONE Stop: 12/02/24 04:51 Last Admin: 12/02/24 05:04 Dose: Not Given Documented By: NE Non-Admin Reason: Override Medication Dexamethasone Sodium Phosphate (Dexamethasone Sod Phos Inj 10 Mg/Ml Vial) 10 mg PO X1 ONE Stop: 12/02/24 04:45 Last Admin: 12/02/24 05:32 Dose: 10 mg Documented By: KATHY Prednisone (Prednisone 20 Mg Tablet) 40 mg PO X1 ONE Stop: 12/02/24 04:45 Last Admin: 12/02/24 05:34 Dose: 40 mg Documented By: KATHY None Consultations Consultation(s) initiated? (list below): No Diagnosis Differential Diagnosis ED Complaint MDM: Mild asthma attack pneumonia severe asthma attack Most likely diagnosis given after review of the tests above:: Mild asthma attack, patient has a appointment with OB today. Patient can follow-up with there is worsening of symptoms she is advised to return the emergency room medially for further evaluation. Admission Indicated Admission indicated?: not indicated Explain why admission is indicated or not indicated:: Stable Admission Request Was there a request for admission?: No Disposition Plan Disposition Plan: Discharge Discharge Attestation Discharge Attestation: The patient and all family members were given an opportunity to ask questions and understood the discharge instructions. Discharge instructions specifically effects, indications for sooner follow up or return to the emergency department, and the expected course of current diagnosis. Patient condition: Stable Medical Decision Making Differential Diagnosis Differential Diagnosis: Mild asthma attack pneumonia severe asthma attack Discharge Plan Plan Patient Disposition: HOME (Self Care) Patient condition on transfer: Stable Prescriptions/Referrals Prescriptions/Med Rec: No Action albuterol sulfate 90 mcg/actuation HFA aerosol inhaler 2 inh inhalation QID PRN (Reason: shortness of breath or wheezing) Qty: 8.5 0RF nitrofurantoin macrocrystal 100 mg capsule 100 mg PO BID Qty: 20 0RF Rx Instructions: must administer with a meal/food Wegovy 1 mg/0.5 mL pen injector 1 mg SUBCUT QWEEK Patient Comments: ADMINISTER 1 MG UNDER THE SKIN WEEKLY alum-mag hydroxide-simeth [Maalox Maximum Strength] 400-400-40 mg/5 mL suspension 10 ml PO TID PRN (Reason: indigestion) Qty: 3000 0RF Problem List Clinical Impression: Asthma Patient/Caregiver Discharge Instructions Other Activity Instructions:: Continue use your nebulizer and breakthrough inhaler as needed if there is worsening of symptoms in spite of these medications return the emergency room for reevaluation. Education Materials: Asthma Print Language: Malay Stand Alone Forms: Bree Award Info., Work/School Release, Patient Portal Info Letter PA/ALBERENE STONE SETTER Supervising Physician KALLIE/ALBERENE STONE SETTER Supervising Physician: Aki Ventura ENP
[2024-12-02 06:21] VITALS: RESP 18
== END 2024-12-02 07:36 | disposition home or self-care (01) ==
LOC: SERX 06:23
PROVIDERS: Emergency Provider Emergency Medicine; PCP Physician Assistant Medical
DX: O99.512 Diseases of the respiratory system complicating pregnancy, second trimester (principal); J45.909 Unspecified asthma, uncomplicated; Z3A.19 19 weeks gestation of pregnancy
CPT/HCPCS: 94640; 99283; J1100; J7512

== ENCOUNTER 2025-01-06 08:00 | Emergency (ER) | payer MEDICAID, SELFPAY ==
[2025-01-06 08:01] VITALS: BMI 36.6
[2025-01-06 08:16] VITALS: BP 96/65; PULSE 85; RESP 20; TEMP 36.4; O2SAT 97
[2025-01-06 08:47] VITALS: PULSE 91; RESP 24; O2SAT 99
[2025-01-06] MEDS: ALBUTEROL/IPRATROPIUM (Duoneb) RT SOL 3 ML NEBU INH ×2 (08:47→10:50)
[2025-01-06] MEDS: predniSONE 20 MG TABLET 60 MG PO (08:56)
[2025-01-06 09:24] LABS: Strep A Rapid Negative (Negative)
--- NOTE | 2025-01-06 09:54 | EDNOTE_ITS ---
ED SOB =RME/HPI General Chief Complaint: Shortness of Breath/Dyspnea Stated Complaint: SOB S/P ASTHMA EXACERBATION X4 DAYS Time Seen by Provider: 01/06/25 08:04 Source: patient Arrival date/time: 01/06/25 08:00 This is a 35-year-old female who presents to the emergency department with co mplaints of asthma exacerbation. Reports wheezing and cough worsening over last night. Taking her inhaler medication with no relief. Patient is wheezing upon arrival. No hypoxia.. Mode of arrival: ambulatory Limitations: no limitations Related Data Home Medications ?Medication ?Instructions ?Recorded ?Confirmed semaglutide (weight loss) 1 mg/0.5 1 mg subcut QWEEK 0 03/31/24 06/30/24 mL subcutaneous pen injector (Wegovy) Previous Rx's ?Medication ?Instructions ?Recorded albuterol sulfate 90 mcg/actuation 2 inh inhalation QI D PRN shortness 09/02/24 aerosol inhaler of breath or wheezing #8.5 g donell aluminum-mag hydroxide-simethicone 10 ml PO TID PRN in digestion 09/26/24 400 mg-400 mg-40 mg/5 mL oral susp #3,000 mL (Maalox Maximum Strength) nitrofurantoin macrocrystal 100 mg 100 mg PO BID #20 c aps 11/30/24 capsule albuterol sulfate 90 mcg/actuation 2 puff inhalation Q 6H PRN 01/06/25 aerosol inhaler (Ventolin HFA) shortness of breath or wheezing #8.5 grams Allergies Allergy/AdvReac Type Severity Reaction Status Date / Time amoxicillin Allergy Severe rash Verified 01/06/25 08:03 Sulfa (Sulfonamide Allergy Severe RASH Verified 01/06/25 08:03 Antibiotics) Review of Systems Review of Systems Systems Reviewed: All systems reviewed, normal except as documented Narrative Review of Systems: Gen: No fever, no chills, no weight loss EYES: No discharge, no visual changes, no pain HEENT: No ear pain, no congestion, no sore throat PULM: + shortness of breath, + cough, no congestion, +wheezing CV: No chest pain, no dyspnea on exertion, no palpitations GI: No nausea, no vomiting, no diarrhea, no pain, no constipation : No frequency, no urgency, no dysuria Musc/skel: No joint pain, no back pain Skin: No rash Psyc: No hallucinations, no depression Heme/Lymph: No easy bleeding or bruising tendencies Neuro: No weakness, no headache ED Exam Narrative Physical exam: 35-year-old female speaking full sentences mild distress General Limitations: Present no limitations General appearance: Present alert, in no apparent distress and in distress (M ild) Head Head exam: Present atraumatic Eye Eye exam: Present normal appearance, PERRL and EOMI ENT ENT exam: Present normal exam, normal oropharynx and mucous membranes moist Neck Neck exam: Present normal inspection, full ROM and trachea midline Chest Chest inspection: Present normal inspection and symmetric chest wall rise Respiratory Respiratory exam: Present wheezes Expanded Respiratory Exam Location: Left: wheezes, Right: wheezes and Upper: wheezes Cardiovascular Cardiovascular exam: Present regular rate, normal rhythm and normal heart sounds Abdominal Exam Abdominal exam: Present soft and normal bowel sounds Extremities Exam Extremities exam: Present normal inspection and full ROM Back Exam Back exam: Present normal inspection and full ROM Neurological Exam Neurological exam: Present alert, oriented X3 and CN II-XII intact Psychiatric Psychiatric exam: Present normal affect and normal mood Skin Skin exam: Present warm, dry, intact and normal color Course Quality Measures none Orders Category Date Time Status Strep A Rapid Stat Lab 01/06/25 08:56 Completed Albuterol/Ipratr Rt Fozia [Duoneb Rt Fozia] Med 01/06/25 08:37 Discontinued 3 ml INH X1 ONE Albuterol/Ipratr Rt Fozia [Duoneb Rt Fozia] Med 01/06/25 10:16 Discontinued 3 ml INH X1 ONE predniSONE Med 01/06/25 08:39 Discontinued 60 mg PO X1 ONE Vital Signs Vital signs: Vital Signs Temperature 97.5 F 01/06/25 08:16 Pulse Rate 85 01/06/25 08:16 Respiratory Rate 20 01/06/25 08:16 Blood Pressure 96/65 01/06/25 08:16 Pulse Oximetry (%) 97 01/06/25 08:16 Oxygen Delivery Method Room Air 01/06/25 08:16 Shortness of Breath / Dyspnea MDM Narrative MDM Narrative:: Albuterol DuoNeb and prednisone given to patient improved wheezing. Strict follow-up with her clinic or PCP. ER precautions given Patient data External records reviewed:: [facility] previous records Clinical information provided by:: patient Social determinants that could affect healthcare access:: none Patient has the following chronic illnesses:: Asthma How is presenting disease/condition affected by chronic disease/condition?: exacerbated by Evaluation data The following diagnostics were reviewed and interpreted by me:: lab results and radiology exam(s) Lab and/or radiology exams considered but not ordered:: None Interpretation Summary: Bronchitis and asthma exacerbation Medications / Prescriptions Medications or Prescriptions considered but not ordered:: None Medication administrations:: Medication Administration History Discontinued Medications Albuterol/Ipratropium (Albuterol/Ipratropium (Duoneb) Rt Fozia 3 Ml Nebu) 3 ml INH X1 ONE Stop: 01/06/25 08:38 Last Admin: 01/06/25 08:47 Dose: 3 ml Documented By: MARGIE Albuterol/Ipratropium (Albuterol/Ipratropium (Duoneb) Rt Fozia 3 Ml Nebu) 3 ml INH X1 ONE Stop: 01/06/25 10:17 Last Admin: 01/06/25 10:50 Dose: 3 ml Documented By: AMRGIE Prednisone (Prednisone 20 Mg Tablet) 60 mg PO X1 ONE Stop: 01/06/25 08:40 Last Admin: 01/06/25 08:56 Dose: 60 mg Documented By: VG All medications administered and effective Consultations Consultation(s) initiated? (list below): No Diagnosis Shortness of Breath Differential Diagnosis: acute exacerbation of chronic obstructive airways disease, community acquired pneumonia, asthma with exacerbation and other (Bronchitis, COVID, influenza, RSV) Most likely diagnosis given after review of the tests above:: Bronchitis with asthma exacerbation Admission Indicated Admission indicated?: not indicated Explain why admission is indicated or not indicated:: Admission criteria not met Admission Request Was there a request for admission?: No Disposition Plan Disposition Plan: Discharge Discharge Attestation Discharge Attestation: The patient and all family members were given an opportunity to ask questions and understood the discharge instructions. Discharge instructions specifically effects, indications for sooner follow up or return to the emergency department, and the expected course of current diagnosis. Patient condition: Stable Discharge Plan Plan Patient Disposition: HOME (Self Care) Prescriptions/Referrals Prescriptions/Med Rec: New albuterol sulfate [Ventolin HFA] 90 mcg/actuation HFA aerosol inhaler 2 puff inhalation Q6H PRN (Reason: shortness of breath or wheezing) Qty: 8.5 0RF No Action albuterol sulfate 90 mcg/actuation HFA aerosol inhaler 2 inh inhalation QID PRN (Reason: shortness of breath or wheezing) Qty: 8.5 0RF nitrofurantoin macrocrystal 100 mg capsule 100 mg PO BID Qty: 20 0RF Rx Instructions: must administer with a meal/food Wegovy 1 mg/0.5 mL pen injector 1 mg SUBCUT QWEEK Patient Comments: ADMINISTER 1 MG UNDER THE SKIN WEEKLY alum-mag hydroxide-simeth [Maalox Maximum Strength] 400-400-40 mg/5 mL suspension 10 ml PO TID PRN (Reason: indigestion) Qty: 3000 0RF Referrals: Kristal Peralta PA-C [Primary Care Provider] - In 1 week Problem List Clinical Impression: Asthma with exacerbation Patient/Caregiver Discharge Instructions Discharge Activity: activity as tolerated Education Materials: Asthma Additional Instructions: Please follow-up with your PCP or clinic for follow-up care. Your prednisone dose tomorrow. Use inhaler as directed. Return to the emergency department this any worsening situation condition. Print Language: Pashto Stand Alone Forms: Bree Award Info., Patient Portal Info Letter PA/TERMINAL OPERATIONS MANAGER Supervising Physician PA/CHRISSIE Supervising Physician: dr Larson
[2025-01-06 10:50] VITALS: PULSE 92; RESP 22; O2SAT 99
== END 2025-01-06 11:54 | disposition home or self-care (01) ==
PROVIDERS: Nurse Practitioner Primary Care; Emergency Provider Emergency Medicine; PCP Physician Assistant Medical
DX: J45.901 Unspecified asthma with (acute) exacerbation (principal)
CPT/HCPCS: 87651; 94640; 99284; A9270; J7512

== ENCOUNTER 2025-02-07 03:32 | Emergency (ER) | payer MEDICAID, SELFPAY ==
[2025-02-07 03:37] VITALS: BP 112/75; PULSE 99; RESP 24; TEMP 36.9; O2SAT 98; BMI 38.4
--- NOTE | 2025-02-07 03:42 | EDNOTE_ITS ---
ED Asthma RME/HPI General Chief Complaint: Asthma Stated Complaint: Asthma attack Time Seen by Provider: 02/07/25 03:42 Source: patient, RN notes reviewed and old records reviewed Arrival date/time: 02/07/25 03:32 Mode of arrival: ambulatory Limitations: no limitations RME / HPI RME / HPI Narrative: 35yof presents to ED for 4-day history of cough, shortness of breath. Patient states weather changes and dust typically trigger her asthma. No fever, congestion, chest pain or dizziness reported. Patient reports intermittent posttussive vomiting. Last neb treatment at home at 0300 this morning with minimal symptom improvement. Patient is 28 weeks ob, no ob complaints at this time. +FM reported. Related Data Home Medications ?Medication ?Instructions ?Recorded ?Confirmed semaglutide (weight loss) 1 mg/0.5 1 mg subcut QWEEK 0 03/31/24 06/30/24 mL subcutaneous pen injector (Jason) Previous Rx's ?Medication ?Instructions ?Recorded albuterol sulfate 90 mcg/actuation 2 inh inhalation QI D PRN shortness 09/02/24 aerosol inhaler of breath or wheezing #8.5 g donell aluminum-mag hydroxide-simethicone 10 ml PO TID PRN in digestion 09/26/24 400 mg-400 mg-40 mg/5 mL oral susp #3,000 mL (Maalox Maximum Strength) nitrofurantoin macrocrystal 100 mg 100 mg PO BID #20 c aps 11/30/24 capsule albuterol sulfate 90 mcg/actuation 2 puff inhalation Q 6H PRN 01/06/25 aerosol inhaler (Ventolin HFA) shortness of breath or wheezing #8.5 grams albuterol sulfate 90 mcg/actuation 2 puff inhalation Q 4H PRN 02/07/25 aerosol inhaler shortness of breath or wheez ing #18 grams dextromethorphan-guaifenesin 10 10 ml PO Q6H PRN cough #237 mL 02/07/25 mg-100 mg/5 mL oral syrup ondansetron 4 mg disintegrating 4 mg PO Q6H PRN nausea and 02/07/25 tablet vomiting #10 tabs Allergies Allergy/AdvReac Type Severity Reaction Status Date / Time amoxicillin Allergy Severe rash Verified 01/06/25 08:03 Sulfa (Sulfonamide Allergy Severe RASH Verified 01/06/25 08:03 Antibiotics) Review of Systems Review of Systems Systems Reviewed: All systems reviewed, normal except as documented Constitutional Constitutional: Denies chills and Denies fever(s) ENT Ears, Nose, Mouth, and Throat: Denies vertigo Cardiovascular Cardiovascular: Denies chest pain and Reports dyspnea Respiratory Respiratory: Reports cough and Reports dyspnea Gastrointestinal Gastrointestinal: Reports vomiting (Posttussive) Genitourinary Genitourinary: Denies abnormal vaginal bleeding and Denies pelvic pain Neurologic Neurologic: Denies vertigo Past Medical History Past Medical History RESPIRATORY: Positive Asthma GASTROINTESTINAL: Positive Obesity Surgical History OTHER SURGICAL HX: Appendectomy, ankle surgery Social History SMOKING STATUS: Never smoker SUBSTANCE USE: does not use ALCOHOL: Never ED Exam General Limitations: Present no limitations General appearance: Present alert, in no apparent distress and obese Head Head exam: Present atraumatic and normocephalic Eye Eye exam: Present normal appearance, PERRL and EOMI ENT ENT exam: Present normal exam and mucous membranes moist Neck Neck exam: Present normal inspection and full ROM Chest Chest inspection: Present normal inspection and symmetric chest wall rise Respiratory Respiratory exam: Present wheezes and other (No respiratory distress or increased work of breathing. No tachypnea or retractions) Cardiovascular Cardiovascular exam: Present regular rate and normal rhythm Abdominal Exam Abdominal exam: Present other (Gravid uterus) Extremities Exam Extremities exam: Present normal inspection and full ROM Neurological Exam Neurological exam: Present alert and oriented X3 Psychiatric Psychiatric exam: Present normal affect and normal mood Skin Skin exam: Present warm, dry, intact and normal color Course Course Course Narrative: 0418: Patient reassessed. Feels mildly better after neb treatment, requests second neb prior to discharge Quality Measures none Orders Category Date Time Status Albuterol/Ipratr Rt Fozia [Duoneb Rt Fozia] Med 02/07/25 03:41 Once 3 ml INH X1 ONE Ondansetron Odt [Zofran Odt] Med 02/07/25 03:41 Once 4 mg PO X1 ONE guaiFENesin/DM [Robitussin Dm] Med 02/07/25 03:42 Once 10 ml PO X1 ONE Vital Signs Vital signs: Vital Signs Temperature 98.4 F 02/07/25 03:37 Pulse Rate 99 02/07/25 03:37 Respiratory Rate 24 H 02/07/25 03:37 Blood Pressure 112/75 02/07/25 03:37 Pulse Oximetry (%) 98 02/07/25 03:37 Oxygen Delivery Method Room Air 02/07/25 03:37 Asthma MDM Narrative MDM Narrative:: 35yof presents to ED for 4-day history of cough, shortness of breath. Patient states weather changes and dust typically trigger her asthma. No fever, congestion, chest pain or dizziness reported. Patient reports intermittent posttussive vomiting. Last neb treatment at home at 0300 this morning with minimal symptom improvement. Patient is 28 weeks ob, no ob complaints at this time. +FM reported. Symptoms improved after Duonebs x2. Patient is well-appearing, afebrile, vitals are stable. No evidence of respiratory distress or hypoxia. Encouraged PCP follow-up as needed. Stable for discharge, RTED precautions given. Patient data External records reviewed:: [facility] previous records ( ED visit for asthma exacerbation) Clinical information provided by:: patient Social determinants that could affect healthcare access:: none Patient has the following chronic illnesses:: Asthma How is presenting disease/condition affected by chronic disease/condition?: caused by Evaluation data The following diagnostics were reviewed and interpreted by me:: other (specify) (None) Lab and/or radiology exams considered but not ordered:: CXR: Symptoms c/w patient's typical asthma exacerbations Interpretation Summary: na Medications / Prescriptions Medications or Prescriptions considered but not ordered:: No antibiotics recommended at this time Medication administrations:: Above medications administered in ED Consultations Consultation(s) initiated? (list below): No Diagnosis Differential diagnosis asthma: Acute exacerbation, Status asthmaticus, Acute asthmatic bronchitis, Pneumonia and COPD exacerbation Most likely diagnosis given after review of the tests above:: Asthma exacerbation Admission Indicated Admission indicated?: not indicated Admission Request Was there a request for admission?: No Disposition Plan Disposition Plan: Discharge Discharge Attestation Discharge Attestation: The patient and all family members were given an opportunity to ask questions and understood the discharge instructions. Discharge instructions specifically effects, indications for sooner follow up or return to the emergency department, and the expected course of current diagnosis. Patient condition: Stable Discharge Plan Plan Patient Disposition: HOME (Self Care) Patient condition on transfer: Stable Prescriptions/Referrals Prescriptions/Med Rec: New albuterol sulfate 90 mcg/actuation HFA aerosol inhaler 2 puff inhalation Q4H PRN (Reason: shortness of breath or wheezing) Qty: 18 0RF dextromethorphan-guaifenesin 10-100 mg/5 mL syrup 10 ml PO Q6H PRN (Reason: cough) Qty: 237 0RF ondansetron 4 mg tablet,disintegrating 4 mg PO Q6H PRN (Reason: nausea and vomiting) Qty: 10 0RF No Action albuterol sulfate 90 mcg/actuation HFA aerosol inhaler 2 inh inhalation QID PRN (Reason: shortness of breath or wheezing) Qty: 8.5 0RF nitrofurantoin macrocrystal 100 mg capsule 100 mg PO BID Qty: 20 0RF Rx Instructions: must administer with a meal/food Wegovy 1 mg/0.5 mL pen injector 1 mg SUBCUT QWEEK Patient Comments: ADMINISTER 1 MG UNDER THE SKIN WEEKLY alum-mag hydroxide-simeth [Maalox Maximum Strength] 400-400-40 mg/5 mL suspension 10 ml PO TID PRN (Reason: indigestion) Qty: 3000 0RF albuterol sulfate [Ventolin HFA] 90 mcg/actuation HFA aerosol inhaler 2 puff inhalation Q6H PRN (Reason: shortness of breath or wheezing) Qty: 8.5 0RF Referrals: Johnathon Paula MD [Primary Care Provider] - In 1 week Problem List Clinical Impression: Asthma exacerbation Patient/Caregiver Discharge Instructions Education Materials: ED Asthma, Acute (Adult) Print Language: Chinese Stand Alone Forms: Bree Award Info., Patient Portal Info Letter PA/DESKTOP SUPPORT ENGINEER Supervising Physician PA/DESKTOP SUPPORT ENGINEER Supervising Physician: Jason
[2025-02-07] MEDS: ONDANSETRON ODT 4 MG TABRAP PO (03:49)
[2025-02-07] MEDS: ALBUTEROL/IPRATROPIUM (Duoneb) RT SOL 3 ML NEBU INH ×2 (03:51→04:45)
[2025-02-07 03:52] VITALS: PULSE 94; RESP 22; O2SAT 100
[2025-02-07] MEDS: guaiFENesin/DM 10 ML UDC PO (04:34)
[2025-02-07 04:46] VITALS: PULSE 90; RESP 23; O2SAT 99
== END 2025-02-07 05:05 | disposition home or self-care (01) ==
PROVIDERS: Emergency Provider Emergency Medicine; PCP Family Medicine
DX: O99.513 Diseases of the respiratory system complicating pregnancy, third trimester (principal); J45.901 Unspecified asthma with (acute) exacerbation; Z3A.28 28 weeks gestation of pregnancy
CPT/HCPCS: 94640; 99284; A9270; Q0162

== ENCOUNTER 2025-02-12 09:32 | Emergency (ER) | payer MEDICAID, SELFPAY ==
[2025-02-12 09:32] VITALS: BMI 38.4
[2025-02-12 09:40] VITALS: BP 102/69; PULSE 89; RESP 18; TEMP 36.7; O2SAT 96
--- NOTE | 2025-02-12 09:46 | XR_ITS ---
Examination: age Limited Technique: Limited transabdominal sonographic images pelvis Date and time of exam: February 12, 2025 1049 hrs. Indications: Shortness of breath today Findings: Cardiac motion 147 BPM presentation Vertex Impression: Viable intrauterine gestation vertex presentation
--- NOTE | 2025-02-12 09:46 | XR_ITS ---
Examination: AP chest single view Technique: AP portable semiupright chest single view Date and time: February 12, 2025 1003 hrs. Comparison September 13, 2024 Indications: Shortness of breath 3 days. Findings: Normal heart size. Lungs are clear. Osseous structures are intact Impression: No active disease
[2025-02-12 10:07] VITALS: PULSE 90
[2025-02-12] MEDS: ALBUTEROL RT 2.5 MG/0.5 ML NEBU 5 MG INH (10:07)
[2025-02-12] MEDS: SODIUM CHLORIDE RT SOL 0.9% 3 ML NEBU INH (10:07)
[2025-02-12 10:13] VITALS: PULSE 92; RESP 100; O2SAT 100
[2025-02-12] MEDS: AZITHROMYCIN 250 MG TABLET 500 MG PO (10:34)
[2025-02-12] MEDS: predniSONE 20 MG TABLET 60 MG PO (10:34)
[2025-02-12] MEDS: SODIUM CHLORIDE 0.9% 1000 ML 1,000 ML 999 ML IV (10:34)
[2025-02-12] MEDS: METOCLOPRAMIDE INJ 5 MG/ML VIAL 2 ML 10 MG IVP (10:35)
[2025-02-12 10:53] LABS: Basophils % (Auto) 0 % (0-2.5); Eosinophils # (Auto) 0.7 Thou/mm3 (0.0-0.5); Eosinophils % (Auto) 8 % (0-10); Hematocrit 36.3 % (36.0-46.0); Hemoglobin 12.3 g/dL (12.0-16.0); Immature Granulocytes % (Auto) 0 % (0-0); Immature Granulocytes Auto 0.03 Thou/mm3 (0.00-0.00); Lymphocytes % (Auto) 21 % (10-50); Mean Corpuscular HGB Conc 33.9 g/dl (31.0-37.0); Mean Corpuscular Hemoglobin 28.6 pg (25.0-35.0); Mean Corpuscular Volume 84 fL (80-100); Monocytes # (Auto) 0.5 Thou/mm3 (0.0-0.8); Monocytes % (Auto) 5 % (0-12); Neutrophils # (Auto) 6.3 Thou/mm3 (1.8-7.7); Neutrophils % (Auto) 66 % (37-80); Nucleated Red Blood Cell % 0 /100 WBC (0); Platelet Count 206 Thou/mm3 (140-440); RDW Standard Deviation 42.5 fL (36.4-46.3); White Blood Count 9.6 Thou/mm3 (3.6-11.0)
[2025-02-12 10:55] LABS: Alanine Aminotransferase 9 U/L (10-49); Albumin/Globulin Ratio 1.5 (1.2-2.2); Alkaline Phosphatase 94 U/L (46-116); Anion Gap 10 (7-16); Aspartate Amino Transferase 13 U/L (0-34); BUN/Creatinine Ratio 10 Ratio (12-20); Bilirubin,Total 0.5 mg/dL (0.3-1.2); Blood Urea Nitrogen 5 mg/dL (9-23); Calcium 8.7 mg/dL (8.3-10.6); Calcium (Corrected) 8.7 mg/dL (8.5-10.1); Carbon Dioxide 24.1 mMol/L (20.0-31.0); Chloride 105 mMol/L (98-107); Creatinine (Component) 0.5 mg/dL (0.6-1.3); Estimated Creatinine Clearance 172.2 mL/min (>60); Globulin 2.6 gm/dL (2.3-3.5); Glucose 91 mg/dL (74-106); Magnesium 1.5 mg/dL (1.6-2.6); Osmolality,Calculated 274 (275-295); Potassium 3.8 mMol/L (3.4-5.1); Sodium 139 mMol/L (136-145); Total Protein 6.6 gm/dL (5.7-8.2); eGFR > 60 See Note
[2025-02-12 11:15] VITALS: PULSE 78; RESP 20; O2SAT 100
[2025-02-12] MEDS: BUDESONIDE RT 0.5 MG/2 ML NEBU INH (11:15)
--- NOTE | 2025-02-12 12:42 | EDNOTE_ITS ---
ED SOB =RME/HPI General Chief Complaint: Shortness of Breath/Dyspnea Stated Complaint: SOB Time Seen by Provider: 02/12/25 09:35 Arrival date/time: 02/12/25 09:32 Limitations: no limitations RME / HPI RME / HPI Narrative: 35 year old female who is currently 28 weeks gestational age with history of asthma presents to the ED for evaluation of shortness of breath beginning 2 days ago. Described feeling she is not able to get a full breath in that is not improved with use of her inhaler. Reportedly was evaluated here 5 days ago for similar shortness of breath and discharged home after improvement with breathing treatments. Mentioned she has consulted with OBGYN regarding use of steroids during and told it would be okay. Patient additionally reports she ran out of her nebulizer treatments at home. Denies fevers, chills, chest pain, abdominal pain, n/v/d, or urinary symptoms. Related Data Home Medications ?Medication ?Instructions ?Recorded ?Confirmed semaglutide (weight loss) 1 mg/0.5 1 mg subcut QWEEK 0 03/31/24 06/30/24 mL subcutaneous pen injector (Wegovy) Previous Rx's ?Medication ?Instructions ?Recorded albuterol sulfate 90 mcg/actuation 2 inh inhalation QI D PRN shortness 09/02/24 aerosol inhaler of breath or wheezing #8.5 g donell aluminum-mag hydroxide-simethicone 10 ml PO TID PRN in digestion 09/26/24 400 mg-400 mg-40 mg/5 mL oral susp #3,000 mL (Maalox Maximum Strength) nitrofurantoin macrocrystal 100 mg 100 mg PO BID #20 c aps 11/30/24 capsule albuterol sulfate 90 mcg/actuation 2 puff inhalation Q 6H PRN 01/06/25 aerosol inhaler (Ventolin HFA) shortness of breath or wheezing #8.5 grams albuterol sulfate 90 mcg/actuation 2 puff inhalation Q 4H PRN 02/07/25 aerosol inhaler shortness of breath or wheez ing #18 grams dextromethorphan-guaifenesin 10 10 ml PO Q6H PRN cough #237 mL 02/07/25 mg-100 mg/5 mL oral syrup ondansetron 4 mg disintegrating 4 mg PO Q6H PRN nausea and 02/07/25 tablet vomiting #10 tabs albuterol sulfate 2.5 mg/3 mL 2.5 mg (3 mL) inhalation Q6H 02/12/25 (0.083 %) solution for nebulization asthma #90 mL budesonide 0.5 mg/2 mL suspension 0.5 mg (2 mL) inhala tion BID 02/12/25 for nebulization (Pulmicort) asthma #60 mL prednisone 20 mg tablet See Taper PO BID asthma #12 tabs 02/12/25 Allergies Allergy/AdvReac Type Severity Reaction Status Date / Time amoxicillin Allergy Severe rash Verified 02/12/25 09:34 Sulfa (Sulfonamide Allergy Severe RASH Verified 02/12/25 09:34 Antibiotics) Review of Systems Review of Systems Systems Reviewed: All systems reviewed, normal except as documented Past Medical History Past Medical History NEUROLOGIC: Negative Neurological Disorders or Seizures CARDIAC: Negative Cardiac Disorders or Congestive Heart Failure RESPIRATORY: Positive Asthma; Negative Chronic Obstructive Pulmonary Disease (COPD) GASTROINTESTINAL: Positive Obesity; Negative Gastrointestinal Disorders or Hepatitis GENITOURINARY: Negative Genitourinary Disorders or Renal Disease REPRODUCTIVE: Positive Previous Pregnancies MUSCULOSKELETAL: Negative Musculoskeletal Disorders ENDOCRINE: Negative Endocrine Disorders, Diabetes Mellitus Type 1 or Diabetes Mellitus Type 2 HEMATOLOGIC: Negative Blood Disorders or Sickle Cell Disease OTHER HISTORY: Negative Hospitalization, Autoimmune Disease, Down Syndrome, Developmental Delay, Shingles, Falls, Blood Transfusions, Blood Transfusion Reaction, Anesthesia Reactions, Organ Transplant, Chemotherapy, Radiation Therapy, Hyperbaric Therapy, MRSA, VRSA, Vancomycin-Resistant Enterococci, Human Immunodeficiency Virus (HIV), Chicken Pox, Measles, Mumps, Rubella ([place] Measles), Pertussis, Clostridium Difficile or Cancer Family History FAMILY HISTORY: Negative Family Psychiatric Problems, Family Respiratory Disorders, Family Cardiac Disorders, Family Gastrointestinal Problems, Family Cancer, Family Surgery or Family Anesthesia Reaction Surgical History SURGICAL: Negative Section or Organ Transplant Social History SMOKING STATUS: Never smoker SUBSTANCE USE: does not use ED Exam General Limitations: Present no limitations General appearance: Present alert and in no apparent distress Head Head exam: Present atraumatic Eye Eye exam: Present normal appearance, PERRL and EOMI ENT ENT exam: Present normal exam, normal oropharynx and mucous membranes moist Neck Neck exam: Present normal inspection, full ROM and trachea midline Chest Chest inspection: Present normal inspection and symmetric chest wall rise Respiratory Respiratory exam: Present wheezes Cardiovascular Cardiovascular exam: Present regular rate, normal rhythm and normal heart sounds Abdominal Exam Abdominal exam: Present soft and normal bowel sounds Extremities Exam Extremities exam: Present normal inspection and full ROM Back Exam Back exam: Present normal inspection and full ROM Neurological Exam Neurological exam: Present alert, oriented X3 and CN II-XII intact Psychiatric Psychiatric exam: Present normal affect and normal mood Skin Skin exam: Present warm, dry, intact and normal color Course Quality Measures none Orders Category Date Time Status Insert IV NOW Care 02/12/25 09:50 Completed US OB >= 14 weeks Fetus Stat Exams 02/12/25 09:46 Completed XR chest 1V portable Stat Exams 02/12/25 09:46 Completed CBC Stat Lab 02/12/25 10:00 Completed CMP [Comprehensive Metabolic Panel] Stat Lab 02/12/25 10:00 Completed Mag [Magnesium] Stat Lab 02/12/25 10:00 Completed ALBUTEROL RT 0.5ml [Proventil Rt 0.5ml] Med 02/12/25 09:46 Discontinued 5 mg INH X1 ONE Azithromycin Po [Zithromax PO] Med 02/12/25 10:13 Discontinued 500 mg PO X1 ONE Budesonide Rt [Pulmicort Rt Fozia] Med 02/12/25 10:13 Discontinued 0.5 mg INH X1 ONE Metoclopramide Inj [Reglan Inj] Med 02/12/25 09:46 Discontinued 10 mg IVP X1 ONE Sodium Chloride 0.9% 1000 ml [Ns] 1,000 ml Med 02/12/25 09:46 Discontinued IV 999 mls/hr Sodium Chloride Rt Fozia 0.9% [NS Rt Fozia 0.9%] Med 02/12/25 09:46 Discontinued 3 ml INH PRN PRN predniSONE Med 02/12/25 10:13 Discontinued 60 mg PO X1 ONE Vital Signs Vital signs: Vital Signs Temperature 98.1 F 02/12/25 09:40 Pulse Rate 89 02/12/25 09:40 Respiratory Rate 18 02/12/25 09:40 Blood Pressure 102/69 02/12/25 09:40 Pulse Oximetry (%) 96 02/12/25 09:40 Oxygen Delivery Method Room Air 02/12/25 09:40 Pulse ox is 96% on room air which is adequate. Shortness of Breath / Dyspnea MDM Narrative MDM Narrative:: Bia Stanton am scribing for and in the presence of Dr. Duvall. 1245: On reassessment and auscultation, the lungs sound much better. We reviewed all the results, analysis, and treatment plans. Patient is amenable to discharge. Strict return precautions were outlined. Patient was discharged in stable condition. Patient data External records reviewed:: [facility] previous records Clinical information provided by:: patient Social determinants that could affect healthcare access:: none Patient has the following chronic illnesses:: Asthma How is presenting disease/condition affected by chronic disease/condition?: exacerbated by Evaluation data The following diagnostics were reviewed and interpreted by me:: lab results and radiology exam(s) Lab and/or radiology exams considered but not ordered:: None Interpretation Summary: Ordering Physician: El Massey NP, NP Date of Service: 02/12/25 Procedure(s): XR chest 1V portable Accession Number(s): [id number] cc: Kristal Peralta PA-C; El Massey NP, NP; Yasir Greene MD~ Examination: AP chest single view Technique: AP portable semiupright chest single view Date and time: February 12, 2025 1003 hrs. Comparison September 13, 2024 Indications: Shortness of breath 3 days. Findings: Normal heart size. Lungs are clear. Osseous structures are intact Impression: No active disease Dictated By: Yasir Greene MD Signed By: <Electronically signed by Yasir Greene MD in OV> 02/12/25 1024 Ordering Physician: El Massey NP, NP Date of Service: 02/12/25 Procedure(s): US OB >= 14 weeks Fetus Accession Number(s): [id number] cc: Kristal Peralta PA-C; El Massey NP, NP; Yasir Greene MD~ Examination: age Limited Technique: Limited transabdominal sonographic images pelvis Date and time of exam: February 12, 2025 1049 hrs. Indications: Shortness of breath today Findings: Cardiac motion 147 BPM presentation Vertex Impression: Viable intrauterine gestation vertex presentation Dictated By: Yasir Greene MD Signed By: <Electronically signed by Yasir Greene MD in OV> 02/12/25 1145 Medications / Prescriptions Medications or Prescriptions considered but not ordered:: None Medication administrations:: Medication Administration History Discontinued Medications Albuterol (Albuterol Rt 2.5 Mg/0.5 Ml Nebu) 5 mg INH X1 ONE Stop: 02/12/25 09:47 Last Admin: 02/12/25 10:07 Dose: 5 mg Documented By: MCKENZIE Azithromycin (Azithromycin 250 Mg Tablet) 500 mg PO X1 ONE Stop: 02/12/25 10:14 Last Admin: 02/12/25 10:34 Dose: 500 mg Documented By: FC Budesonide (Budesonide Rt 0.5 Mg/2 Ml Nebu) 0.5 mg INH X1 ONE Stop: 02/12/25 10:14 Last Admin: 02/12/25 11:15 Dose: 0.5 mg Documented By: SILVANA Sodium Chloride (Ns) 1,000 mls @ 999 mls/hr IV .Q1H1M ONE Stop: 02/12/25 10:46 Last Infusion: 02/12/25 11:42 Dose: Infused Documented By: Admin: 02/12/25 10:34 Dose: 999 mls/hr Documented By: DIVYA Metoclopramide HCl (Metoclopramide Inj 5 Mg/Ml Vial 2 Ml) 10 mg IVP X1 ONE; Protocol Stop: 02/12/25 09:47 Last Admin: 02/12/25 10:35 Dose: 10 mg Documented By: DIVYA Prednisone (Prednisone 20 Mg Tablet) 60 mg PO X1 ONE Stop: 02/12/25 10:14 Last Admin: 02/12/25 10:34 Dose: 60 mg Documented By: DIVYA Sodium Chloride (Sodium Chloride Rt Fozia 0.9% 3 Ml Nebu) 3 ml INH PRN PRN PRN Reason: SOLN Stop: 03/14/25 09:45 Last Admin: 02/12/25 10:07 Dose: 3 ml Documented By: MCKENZIE See above Consultations Consultation(s) initiated? (list below): No Diagnosis Shortness of Breath Differential Diagnosis: acute exacerbation of chronic obstructive airways disease, congestive heart failure, community acquired pneumonia and asthma with exacerbation Most likely diagnosis given after review of the tests above:: Asthma exacerbation IUP Admission Indicated Admission indicated?: not indicated Admission Request Was there a request for admission?: No Disposition Plan Disposition Plan: Discharge Discharge Attestation Discharge Attestation: The patient and all family members were given an opportunity to ask questions and understood the discharge instructions. Discharge instructions specifically effects, indications for sooner follow up or return to the emergency department, and the expected course of current diagnosis. Patient condition: Stable Discharge Plan Plan Patient Disposition: HOME (Self Care) Prescriptions/Referrals Prescriptions/Med Rec: New albuterol sulfate 2.5 mg /3 mL (0.083 %) solution for nebulization 2.5 mg inhalation Q6H MDD 10 mg Qty: 90 0RF prednisone 20 mg tablet See Taper PO BID MDD 3 Qty: 12 0RF Taper: Prednisone Taper 20 mg DAILY for 6 Days and 0 Hour Rx Instructions: Take 3 tabs by mouth daily for 2 days, then 2 tablets by mouth for 2 days then 1 tablet for 2 days then discontinue #12 budesonide [Pulmicort] 0.5 mg/2 mL suspension for nebulization 0.5 mg inhalation BID MDD 1.0 mg Qty: 60 0RF No Action albuterol sulfate 90 mcg/actuation HFA aerosol inhaler 2 inh inhalation QID PRN (Reason: shortness of breath or wheezing) Qty: 8.5 0RF nitrofurantoin macrocrystal 100 mg capsule 100 mg PO BID Qty: 20 0RF Rx Instructions: must administer with a meal/food Wegovy 1 mg/0.5 mL pen injector 1 mg SUBCUT QWEEK Patient Comments: ADMINISTER 1 MG UNDER THE SKIN WEEKLY alum-mag hydroxide-simeth [Maalox Maximum Strength] 400-400-40 mg/5 mL suspension 10 ml PO TID PRN (Reason: indigestion) Qty: 3000 0RF albuterol sulfate [Ventolin HFA] 90 mcg/actuation HFA aerosol inhaler 2 puff inhalation Q6H PRN (Reason: shortness of breath or wheezing) Qty: 8.5 0RF albuterol sulfate 90 mcg/actuation HFA aerosol inhaler 2 puff inhalation Q4H PRN (Reason: shortness of breath or wheezing) Qty: 18 0RF dextromethorphan-guaifenesin 10-100 mg/5 mL syrup 10 ml PO Q6H PRN (Reason: cough) Qty: 237 0RF ondansetron 4 mg tablet,disintegrating 4 mg PO Q6H PRN (Reason: nausea and vomiting) Qty: 10 0RF Referrals: Kristal Peralta PA-C [Primary Care Provider] - In 1 week Problem List Clinical Impression: Asthma exacerbation, Intrauterine Patient/Caregiver Discharge Instructions Education Materials: ED Asthma, Acute (Adult) Additional Instructions: Follow-up with your primary care doctor in 3 to 5 days for recheck. You can return to the emergency department sooner if symptoms worsen or if you notice any new, concerning issues. Print Language: Romansh Stand Alone Forms: Bree Award Info., Patient Portal Info Letter
[2025-02-12 14:00] VITALS: BP 103/60; PULSE 84; RESP 20; TEMP 36.6; O2SAT 97
== END 2025-02-12 14:06 | disposition home or self-care (01) ==
PROVIDERS: Nurse Practitioner Primary Care; Emergency Provider Family Medicine; PCP Physician Assistant Medical
DX: O99.513 Diseases of the respiratory system complicating pregnancy, third trimester (principal); J45.901 Unspecified asthma with (acute) exacerbation; Z3A.28 28 weeks gestation of pregnancy
CPT/HCPCS: 36415; 71045; 76805; 80053; 83735; 85025; 94640; 96361; 96374; 99284; J2765; J7030; J7512; A9270

== ENCOUNTER 2025-02-17 17:36 | Observation (INO) | payer MEDICAID, SELFPAY ==
[2025-02-17 17:43] VITALS: BP 98/53; RESP 18; RESP 97; TEMP 36.6; BMI 39.1
[2025-02-17 17:51] VITALS: BP 98/53; PULSE 82
== END 2025-02-17 19:01 | disposition home or self-care (01) ==
PROVIDERS: Admitting Provider Obstetrics & Gynecology; Visit Provider Obstetrics & Gynecology
DX: O26.893 Other specified pregnancy related conditions, third trimester (principal); Z3A.30 30 weeks gestation of pregnancy; R10.30 Lower abdominal pain, unspecified; M54.9 Dorsalgia, unspecified
CPT/HCPCS: 59025; 59899; G0378

== ENCOUNTER 2025-03-23 10:18 | Observation (INO) | payer MEDICAID, SELFPAY ==
[2025-03-23] VITALS (30 sets, daily range): BP systolic 93–118; BP diastolic 52–71; PULSE 66–95; RESP 18–97; TEMP 36.6; O2SAT 89–100; BMI 39.0
[2025-03-23 11:01] LABS: Collection Type, Urine Clean Catch
[2025-03-23] MEDS: ACETAMINOPHEN 500 MG TABLET 1000 MG PO (11:17)
[2025-03-23 11:18] LABS: ROM Kit Exp Date# 111527; ROM Kit Lot # 58102387; ROM Swab Mixed By: LOPEV; Swb Mxed in Solvent 1 min? Yes
[2025-03-23 11:19] LABS: Rupture of Fetal Membranes Negative (Negative)
[2025-03-23 11:27] LABS: Bacteria,Urine 4+; Bilirubin,Urine Negative (Negative); Blood,Urine 1+ (Negative); Color,Urine Yellow (Lt Yel-Yel); Glucose, Urine Negative (Negative); Hyaline Casts,Urine < 1 /hpf (0-1); Ketones,Urine Negative (Negative); Leukocyte Esterase,Urine Positive (Negative); Nitrite,Urine Negative (Negative); PH,Urine 7.5 (5.0-7.0); Protein,Urine Negative (Neg - Trace); RBC,Urine 10 /hpf (0-3); Specific Gravity,Urine 1.017 (1.001-1.035); Squamous Epithelial Cell,Urine 33 /hpf (0-5); Urobilinogen,Urine Negative mg/dL (0.0-1.0); WBC,Urine 11 /hpf (0-5)
[2025-03-23 12:00] LABS: Clarity,Urine Hazy (Clear/Hazy)
[2025-03-23] MEDS: cefTRIAXone 1,000 MG, LIDOCAINE 1% 20 ML 2.1 ML IM (12:42)
== END 2025-03-23 13:15 | disposition home or self-care (01) ==
PROVIDERS: Admitting Provider Specialist; Visit Provider Specialist
DX: O26.893 Other specified pregnancy related conditions, third trimester (principal); R10.30 Lower abdominal pain, unspecified; M54.50 Low back pain, unspecified; R51.9 Headache, unspecified; Z3A.35 35 weeks gestation of pregnancy
CPT/HCPCS: 59025; 59899; 81001; 84112; 87086; 96372; J0696; J3490; A9270

== ENCOUNTER 2025-03-29 16:59 | Observation (INO) | payer MEDICAID, SELFPAY ==
[2025-03-29] VITALS (52 sets, daily range): BP systolic 89–105; BP diastolic 50–65; PULSE 70–94; RESP 18; TEMP 36.7–36.8; O2SAT 95–99; BMI 38.9
[2025-03-29] MEDS: BETAMET ACET/BETAMET NA PH (Celestone) 6 MG/ML VIAL 12 MG IM (17:33)
[2025-03-29] MEDS: CLOTRIMAZOLE VAG CR 1% 45 GM TUBE VAGINAL (22:00)
[2025-03-30] VITALS (113 sets, daily range): BP systolic 78–106; BP diastolic 46–58; PULSE 61–106; RESP 18; TEMP 36.5–36.7; O2SAT 83–100
--- NOTE | 2025-03-30 07:00 | XR_ITS ---
Examination: Biophysical profile, ultrasound Date and time of exam: March 30, 2025 0717 hours INDICATIONS: Maternal obesity complicating Technique: Multiple transabdominal sonographic images of the pelvis abdomen obtained. Attention is directed to the breathing movement, gross body movement, amniotic fluid volume and tone. Findings: Amniotic fluid index 8.5 cm Total biophysical profile is 8 of 8. breathing movement is 2. Gross body movement is 2. tone is 2. Qualitative amniotic fluid volume is 2 Impression: Biophysical profile is 8 of 8.
== END 2025-03-30 09:03 | disposition home or self-care (01) ==
PROVIDERS: Admitting Provider Student in an Organized Health Care Education/Training Program; Visit Provider Student in an Organized Health Care Education/Training Program
DX: O99.213 Obesity complicating pregnancy, third trimester (principal); E66.9 Obesity, unspecified; Z3A.36 36 weeks gestation of pregnancy
CPT/HCPCS: 59899; 76819; 96372; J0702; A9270

== ENCOUNTER 2025-03-30 17:24 | Outpatient (CLI) | payer MEDICAID, SELFPAY ==
[2025-03-30 17:32] VITALS: BP 101/67; PULSE 93; RESP 18; RESP 98; TEMP 36.9; BMI 39.7
[2025-03-30 17:36] VITALS: BP 101/67; PULSE 90; PULSE 91; O2SAT 96
[2025-03-30 17:41] VITALS: PULSE 97; O2SAT 98
[2025-03-30 17:46] VITALS: PULSE 90; O2SAT 98
[2025-03-30 17:51] VITALS: PULSE 91; O2SAT 98
[2025-03-30 17:56] VITALS: PULSE 98; O2SAT 98
[2025-03-30] MEDS: BETAMET ACET/BETAMET NA PH (Celestone) 6 MG/ML VIAL 12 MG IM (17:58)
--- NOTE | 2025-03-30 18:11 | PC.NURSE ---
1809 discharge instruction reviewed labor precautions, kick counts, copy og instructions given, pt agrees/understands
== END 2025-03-30 18:10 | disposition home or self-care (01) ==
LOC: S4S1 17:25 → S4SX 17:25
PROVIDERS: Referring Provider Specialist; Visit Provider Specialist
DX: Z34.83 Encounter for supervision of other normal pregnancy, third trimester (principal); Z36.9 Encounter for antenatal screening, unspecified; Z3A.36 36 weeks gestation of pregnancy
CPT/HCPCS: 59025; 96372; J0702

== ENCOUNTER 2025-04-03 13:30 | Observation (INO) | payer MEDICAID, SELFPAY ==
[2025-04-03 13:43] VITALS: BP 91/52; PULSE 86
[2025-04-03 13:58] VITALS: BP 91/52; PULSE 86; RESP 18; RESP 98; TEMP 36.6; BMI 39.4
[2025-04-03 14:13] VITALS: BP 101/56; PULSE 82
[2025-04-03 14:33] LABS: ROM Kit Lot # 58102387
[2025-04-03 14:34] LABS: ROM Kit Exp Date# 11-15-27; ROM Swab Mixed By: BF; Rupture of Fetal Membranes Negative (Negative); Swb Mxed in Solvent 1 min? Yes
== END 2025-04-03 14:45 | disposition home or self-care (01) ==
PROVIDERS: Admitting Provider Student in an Organized Health Care Education/Training Program; Visit Provider Student in an Organized Health Care Education/Training Program
DX: O26.893 Other specified pregnancy related conditions, third trimester (principal); Z3A.36 36 weeks gestation of pregnancy; R10.9 Unspecified abdominal pain; R51.9 Headache, unspecified
CPT/HCPCS: 59025; 59899; 84112

== ENCOUNTER 2025-04-07 19:04 | Observation (INO) | payer MEDICAID, SELFPAY ==
[2025-04-07] VITALS (22 sets, daily range): BP systolic 113; BP diastolic 70; PULSE 84–112; RESP 19–100; TEMP 36.6; O2SAT 98–99; BMI 40.0
[2025-04-07 20:01] LABS: ROM Kit Exp Date# 11-15-27; ROM Kit Lot # 58102387; ROM Swab Mixed By: PC; Rupture of Fetal Membranes Negative (Negative); Swb Mxed in Solvent 1 min? Yes
--- NOTE | 2025-04-07 20:03 | XR_ITS ---
Examination: Biophysical profile, ultrasound Date and time of exam: April 07, 2025 2008 hours INDICATIONS: Pelvic contractions today Technique: Multiple transabdominal sonographic images of the pelvis abdomen obtained. Attention is directed to the breathing movement, gross body movement, amniotic fluid volume and tone. Findings: Amniotic fluid index 9.3 cm Total biophysical profile is 8 of 8. breathing movement is 2. Gross body movement is 2. tone is 2. Qualitative amniotic fluid volume is 2 Impression: Biophysical profile is 8 of 8.
== END 2025-04-07 21:42 | disposition home or self-care (01) ==
PROVIDERS: Admitting Provider Obstetrics & Gynecology; Visit Provider Obstetrics & Gynecology
DX: O26.893 Other specified pregnancy related conditions, third trimester (principal); Z3A.37 37 weeks gestation of pregnancy; R10.30 Lower abdominal pain, unspecified
CPT/HCPCS: 59025; 59899; 76819; 84112

== ENCOUNTER 2025-04-21 15:08 | Outpatient (CLI) | payer MEDICAID, SELFPAY ==
[2025-04-21] VITALS (28 sets, daily range): BP systolic 100; BP diastolic 69; PULSE 65–94; RESP 18–99; TEMP 36.6; O2SAT 97–100; BMI 40.1
--- NOTE | 2025-04-21 15:47 | XR_ITS ---
Examination: Biophysical profile, ultrasound Date and time of exam: April 21, 2025, 1557 hours INDICATIONS: Decreased movement in the doctor's office today on examination Technique: Multiple transabdominal sonographic images of the pelvis abdomen obtained. Attention is directed to the breathing movement, gross body movement, amniotic fluid volume and tone. Findings: Amniotic fluid index 15.5 cm Total biophysical profile is 8 of 8. breathing movement is 2. Gross body movement is 2. tone is 2. Qualitative amniotic fluid volume is 2 Impression: Biophysical profile is 8 of 8.
== END 2025-04-21 18:22 | disposition home or self-care (01) ==
LOC: S4S1 15:09 → S4SX 15:10
PROVIDERS: Referring Provider Specialist; Visit Provider Specialist
DX: O36.8130 Decreased fetal movements, third trimester, not applicable or unspecified (principal); Z3A.39 39 weeks gestation of pregnancy
CPT/HCPCS: 59025; 76819

== ENCOUNTER 2025-04-25 03:22 | Observation (INO) | payer MEDICAID, SELFPAY ==
[2025-04-25] VITALS (19 sets, daily range): BP systolic 106; BP diastolic 65; PULSE 63–86; RESP 18–98; TEMP 37; O2SAT 86–99; BMI 40.1
== END 2025-04-25 04:50 | disposition home or self-care (01) ==
PROVIDERS: Admitting Provider Obstetrics & Gynecology; Visit Provider Obstetrics & Gynecology
DX: O47.1 False labor at or after 37 completed weeks of gestation (principal); Z3A.39 39 weeks gestation of pregnancy
CPT/HCPCS: 59899

== ENCOUNTER 2025-04-26 14:15 | Outpatient (RCR) | payer MEDICAID, SELFPAY ==
--- NOTE | 2025-03-29 15:05 | XR_ITS ---
Examination: Biophysical profile, ultrasound Date and time of exam: March 29, 2025 1509 hours INDICATIONS: Diagnosis maternal obesity complicating Technique: Multiple transabdominal sonographic images of the pelvis abdomen obtained. Attention is directed to the breathing movement, gross body movement, amniotic fluid volume and tone. Findings: Amniotic fluid index 9.8 cm Total biophysical profile is 8 of 8. breathing movement is 2. Gross body movement is 2. tone is 2. Qualitative amniotic fluid volume is 2 Impression: Biophysical profile is 8 of 8.
[2025-03-29 15:40] VITALS: BP 98/63; PULSE 79; RESP 16; TEMP 36.9
--- NOTE | 2025-03-29 16:57 | ESHP_ITS ---
Documentation for date of: 03/29/25 OB Labor/Induct. HPI History of Present Illness : 7 Para: 6 Term pregnancies: 6 pregnancies: 0 Living children: 6 History of Abortions: Spontaneous and Elective: 0 History of sections: No History of : No Date of last menstrual period: 07/24/24 Gestational age based on last menstrual period: 35 History of present illness: 35 y/o [id number] all previous VD , here for NST for amternal obesity . Patinet had a non reactive NST with marked variability after period of minimal variabilty. Pt is admitted for continous FHT monitoring and overnight observation. History of Present Dating criteria: LMP confirmed by 1st trimester US Abnormal ultrasound findings: anatomy wnl Past Medical History Surgical History SURGICAL: Negative Section Meds Home Medications and Allergies Home Medications ?Medication ?Instructions ?Recorded ?Confirmed ?Type semaglutide (weight loss) 1 mg/0.5 1 mg subcut QWEEK 0 03/31/24 06/30/24 History mL subcutaneous pen injector (Wegovy) Allergies Allergy/AdvReac Type Severity Reaction Status Date / Time amoxicillin Allergy Severe rash Verified 03/23/25 10:33 Sulfa (Sulfonamide Allergy Severe RASH Verified 03/23/25 10:33 Antibiotics) OB Exam Physical Exam Vital signs: Temp Pulse Resp BP 98.4 F 79 16 98/63 03/29/25 15:40 03/29/25 15:40 03/29/25 15:40 03/29/25 15:40 Constitutional Constitutional: no acute distress Routine HEENT Exam Head: Present normocephalic and atraumatic Eye: Present EOMI and PERRL ENT: Present mucous membranes moist Routine Neck Exam Neck: Present supple and trachea midline Routine Cardiovascular Exam Cardiovascular: Present RRR Routine Abdominal Exam Abdominal: Present soft and normoactive bowel sounds Routine Extremities Exam Extremities: Present full ROM Routine Skin Exam Skin: Present intact, dry and warm Routine Neurological Exam Neurological: Present alert, oriented X3 and CN II-XII intact Routine Psychiatric Exam Psychiatric: Present normal affect and normal thought process OB Results Impressions Impression: 35 y/o @36w, admitted for extended monitoring for non reatie cNST [id number] to be given Contineous FHT monitotring BPP 04/29
--- NOTE | 2025-04-05 15:01 | XR_ITS ---
Examination: Biophysical profile, ultrasound Date and time of exam: April 05, 2025 at 1500 hours INDICATIONS: Diagnosis maternal obesity complicating Technique: Multiple transabdominal sonographic images of the pelvis abdomen obtained. Attention is directed to the breathing movement, gross body movement, amniotic fluid volume and tone. Findings: Amniotic fluid index 8.7 cm Total biophysical profile is 8 of 8. breathing movement is 2. Gross body movement is 2. tone is 2. Qualitative amniotic fluid volume is 2 Impression: Biophysical profile is 8 of 8.
[2025-04-05 15:25] VITALS: BP 104/63; PULSE 100; RESP 16; TEMP 36.8
--- NOTE | 2025-04-12 14:32 | XR_ITS ---
Examination: Biophysical profile, ultrasound Date and time of exam: April 12, 2025 1435 hours INDICATIONS: History pelvic contractions Technique: Multiple transabdominal sonographic images of the pelvis abdomen obtained. Attention is directed to the breathing movement, gross body movement, amniotic fluid volume and tone. Findings: Amniotic fluid index 9.3 cm Total biophysical profile is 8 of 8. breathing movement is 2. Gross body movement is 2. tone is 2. Qualitative amniotic fluid volume is 2 Impression: Biophysical profile is 8 of 8.
[2025-04-12 15:00] VITALS: BP 109/66; PULSE 92; RESP 16; TEMP 36.7
--- NOTE | 2025-04-19 14:27 | XR_ITS ---
Examination: Biophysical profile, ultrasound Date and time of exam: April 19, 2025, 1429 hours INDICATIONS: Onset pelvic pressure today Technique: Multiple transabdominal sonographic images of the pelvis abdomen obtained. Attention is directed to the breathing movement, gross body movement, amniotic fluid volume and tone. Findings: Amniotic fluid index 12.3 cm Total biophysical profile is 8 of 8. breathing movement is 2. Gross body movement is 2. tone is 2. Qualitative amniotic fluid volume is 2 Impression: Biophysical profile is 8 of 8.
[2025-04-19 14:58] VITALS: BP 93/56; PULSE 90; RESP 16; TEMP 36.7
--- NOTE | 2025-04-26 14:19 | XR_ITS ---
Examination: Biophysical profile, ultrasound Date and time of exam: April 26, 2025 1430 hours INDICATIONS: Diagnosis obesity complicating Technique: Multiple transabdominal sonographic images of the pelvis abdomen obtained. Attention is directed to the breathing movement, gross body movement, amniotic fluid volume and tone. Findings: Amniotic fluid index 9.9 cm Total biophysical profile is 8 of 8. breathing movement is 2. Gross body movement is 2. tone is 2. Qualitative amniotic fluid volume is 2 Impression: Biophysical profile is 8 of 8.
[2025-04-26 14:59] VITALS: BP 102/62; PULSE 79; RESP 16; TEMP 36.8
== END 2025-04-26 23:59 | disposition home or self-care (01) ==
LOC: S4S1 14:15
PROVIDERS: PCP Physician Assistant Medical; Referring Provider Student in an Organized Health Care Education/Training Program; Visit Provider Student in an Organized Health Care Education/Training Program
DX: O99.213 Obesity complicating pregnancy, third trimester (principal); E66.9 Obesity, unspecified; Z3A.40 40 weeks gestation of pregnancy
CPT/HCPCS: 59025; 76819

== ENCOUNTER 2025-04-26 16:56 | Inpatient (IN) | payer MEDICAID, SELFPAY ==
[2025-04-26] VITALS (65 sets, daily range): BP systolic 98–111; BP diastolic 56–74; PULSE 57–82; RESP 17–18; TEMP 36.5–36.8; O2SAT 93–100; BMI 40.1
--- NOTE | 2025-04-26 17:54 | XR_ITS ---
Examination: Complete OB ultrasound greater than 14 weeks Date and time of exam: April 26, 2025 1853 hours INDICATIONS: Supervision of normal Findings: Viable intrauterine single fetus with single amniotic sac presentation cephalic Cardiac motion 120 BPM Placenta anterior grade 3 Umbilical cord insertion seen Amniotic fluid index 6.6 cm spine maternal left Cervix 4.0 cm Ovaries obscured by bowel gas. Composite estimated gestational age based on BPD, head circumference, abdominal circumference, femur length is 39 weeks 0 days Estimated weight 3770 g. Survey of intracranial anatomy, spinal anatomy, abdominal anatomy, four-chamber heart performed with no abnormalities identified. Impression: Viable intrauterine gestation cephalic presentation.
[2025-04-26] MEDS: RINGERS LACTATED 1000 ML 1,000 ML 100 ML IV ×2 (18:15→20:29)
[2025-04-26 18:27] LABS: Basophils # (Auto) 0.0 Thou/mm3 (0.0-0.2); Basophils % (Auto) 0 % (0-2.5); Eosinophils # (Auto) 0.1 Thou/mm3 (0.0-0.5); Eosinophils % (Auto) 1 % (0-10); Hematocrit 34.7 % (36.0-46.0); Hemoglobin 11.2 g/dL (12.0-16.0); Immature Granulocytes Auto 0.02 Thou/mm3 (0.00-0.00); Lymphocytes # (Auto) 2.4 Thou/mm3 (1.0-4.8); Lymphocytes % (Auto) 27 % (10-50); Mean Corpuscular HGB Conc 32.3 g/dl (31.0-37.0); Mean Corpuscular Hemoglobin 27.0 pg (25.0-35.0); Mean Corpuscular Volume 84 fL (80-100); Monocytes # (Auto) 0.6 Thou/mm3 (0.0-0.8); Monocytes % (Auto) 7 % (0-12); Neutrophils # (Auto) 5.7 Thou/mm3 (1.8-7.7); Neutrophils % (Auto) 64 % (37-80); Nucleated Red Blood Cell # 0.00 Thou/mm3 (0.00-0.00); Nucleated Red Blood Cell % 0 /100 WBC (0); Platelet Count 208 Thou/mm3 (140-440); RDW Standard Deviation 45.4 fL (36.4-46.3); Red Blood Count 4.15 Miln/mm3 (4.00-5.20); White Blood Count 8.9 Thou/mm3 (3.6-11.0)
[2025-04-26 19:06] LABS: Syphilis Nonreactive (Nonreactive)
--- NOTE | 2025-04-26 22:33 | PRELIM_ITS ---
Obstetric ultrasound. April 26, 2025 at 1853 hours Clinical history: Complete OB, size, dates, NINA, presentation. Technique: Real-time, grayscale, transabdominal pelvic ultrasound was performed using Duplex scanning including arterial inflow, venous outflow, color and spectral Doppler Comparison: No prior study is available for comparison. Findings: There is a gravid uterus with a live fetus in cephalic presentation of mean gestational age 39 weeks (by biometry). cardiac activity is present at a heart rate of 120 beats per minute. The placenta is anterior in location, maturity grade III. There is no evidence of placenta previa or retroplacental hemorrhage. Amniotic fluid is mildly reduced (NINA = 6.6 cm). Estimated weight is 3770 grams+/- 558 grams. Estimated due date by ultrasound is 05/03/2025. Biometry: BPD = 9.40 cm (38 weeks 2 days) HC = 34.07 cm (39 weeks 2 days) AC = 36.25 cm (40 weeks 1 day) FL = 7.45 cm (38 weeks 1 day) The cervical length measures 4 cm. The ovaries are obscured by bowel gas and are not evaluated on this examination. No evidence of adnexal mass. Impression: Gravid uterus with a single live fetus in cephalic presentation of mean gestational age 39 weeks. Reduced amniotic fluid volume (NINA 6.6). Recommend follow-up. Report Electronically Signed By: Mychal Naqvi 04/26/2025 10:33:11 PM [EST]
[2025-04-27] VITALS (300 sets, daily range): BP systolic 82–127; BP diastolic 48–82; PULSE 45–87; RESP 16–19; TEMP 36.3–36.9; O2SAT 90–100
--- NOTE | 2025-04-27 06:47 | PD.LDHP ---
Documentation for date of: 04/27/25 OB Labor/Induct. HPI History of Present Illness Chief complaint: Contractions : 7 Para: 6 Term pregnancies: 6 pregnancies: 0 Living children: 6 History of Abortions: Spontaneous and Elective: 0 History of sections: No History of : No Date of last menstrual period: 07/24/24 SHRADDHA: 04/26/25 Gestational age based on last menstrual period: 41 History of present illness: 35-year-old 7 para 6 who receives care at [facility] presented to her scheduled NST appointment but was noted to have uterine contractions every 3 to 5 minutes. Due to her grand multiparity and the fact that she was scheduled for induction the following day patient was admitted for induction/augmentation. Patient denies any leakage of fluid or vaginal bleeding and reports adequate movements. Her was significant for grand multiparity, history of shoulder dissociation and a prior delivery and she has delivered her last 2 infants being 9 pounds and 8 ounces. Patient started care with [facility] in [place] and she was planning to deliver there. Labs Labs: Negative: RPR, Hepatitis B, Rubella Titre, HIV, Chlamydia, Gonorrhea and Group Beta Strep and Unknown: Herpes Type 1, Herpes Type 2 and Covid-19 Review of Systems Review of Systems Systems Reviewed: All systems reviewed, normal except as documented Past Medical History Surgical History SURGICAL: Negative Section Meds Home Medications and Allergies Home Medications ?Medication ?Instructions ?Recorded ?Confirmed ?Type vit no.95-ferrous 1 tab PO QDAY 04/25/25 04/25/25 History fumarate 28 mg-folic acid 800 mcg tablet () Allergies Allergy/AdvReac Type Severity Reaction Status Date / Time amoxicillin Allergy Severe rash Verified 04/26/25 17:46 Sulfa (Sulfonamide Allergy Severe RASH Verified 04/26/25 17:46 Antibiotics) OB Exam Physical Exam Vital signs: Temp Pulse Resp BP Pulse Ox 97.7 F 63 17 93/54 L 99 04/26/25 23:05 04/27/25 05:50 04/26/25 23:05 04/27/25 05:50 04/27/25 06:46 Constitutional Constitutional: no acute distress Routine HEENT Exam Head: Present normocephalic and atraumatic Eye: Present EOMI and PERRL ENT: Present mucous membranes moist Routine Neck Exam Neck: Present supple and trachea midline Routine Cardiovascular Exam Cardiovascular: Present RRR Routine Abdominal Exam Abdominal: Present soft and normoactive bowel sounds Routine Extremities Exam Extremities: Present full ROM Routine Skin Exam Skin: Present intact, dry and warm Routine Neurological Exam Neurological: Present alert, oriented X3 and CN II-XII intact Routine Psychiatric Exam Psychiatric: Present normal affect and normal thought process OB Results Labs 04/26/25 18:18 Labs: Short CBC 04/26/25 Range/Units 18:18 WBC 8.9 (3.6-11.0) Thou/mm3 Hgb 11.2 L (12.0-16.0) g/dL Hct 34.7 L (36.0-46.0) % Plt Count 208 (140-440) Thou/mm3 OB Assessment & Plan Assessment and Plan (1) Grand multiparity: Status: Acute Assessment and plan: Admit to inpatient status for induction/augmentation cervical ripening with Cervidil proceed to oxytocin when Alonzo score is favorable Routine admission orders
[2025-04-27] MEDS: RINGERS LACTATED 1000 ML 1,000 ML 100 ML IV ×3 (17:25→21:16)
--- NOTE | 2025-04-27 19:42 | PD.LDPN ---
Documentation for date of: 04/27/25 OB Labor Progress Note Pain Control Pain control: epidural Pelvic Exam Dilation (cm): 4 Effacement (%): 70 station: -2 Amniotic membrane status: Ruptured Comments: AROMed at 1848 IUPC placed. Clear fluid noted patient cervical exam was 4/70/-2 Contractions Monitor mode: External Contraction frequency: 4-4 Contraction intensity: Mild Status status: Category l Assessment and Plan Assessment: induction ongoing Plan OB labor note: continuous present management
[2025-04-27] MEDS: OXYTOCIN in NS 30 units 30 UNIT/500 ML BAG IV (22:20)
[2025-04-28] VITALS (82 sets, daily range): BP systolic 82–139; BP diastolic 50–83; PULSE 51–108; RESP 14–18; TEMP 36.5–37; O2SAT 84–100
[2025-04-28] MEDS: OXYTOCIN in NS 20 units 20 UNIT/1,000 ML BAG 125 UNIT IV (02:48)
--- NOTE | 2025-04-28 03:06 | OBDSUM_ITS ---
Data (Andre) Data Hx Section: No Maternal Blood Type: AB Pos Rubella Titre: Positive RPR: Non-reactive Labs: Negative: RPR, Hepatitis B, HIV, Chlamydia, Gonorrhea and Group Beta Strep : 7 Term: 6 : 0 Livin Abortions: Spontaneous & Theraputic: 0 Delivery Data (Andre) Labor Data Initiation of labor: Induction Induction/Augmentation Agent: Cytotec-PO, Cervidil, Pitocin and Artificial ROM ROM date: 04/27/25 ROM time: 18:48 Amniotic membrane rupture type: Artificial Amniotic fluid description: Clear Delivery Data EDC: 04/26/25 EDC calculated by:: LMP/early US confirmation Date of arrival to unit: 04/27/25 Onset of labor date: 04/28/25 Onset of labor time: 00:30 Complete dilation date: 04/28/25 Complete dilation time: 02:27 [place] delivery date: 04/28/25 delivery time: 02:44 Placenta delivery date: 04/28/25 Placenta delivery time: 02:48 Stage 1 total time: Labor - Stage 1 Duration 1 hours and 57 minutes Delivered by: Taylor [facility] ([facility]) Delivery nurse: Abhi Parks nurse: Loni Vo Coordinator Of Placement at delivery: No Support person(s) at delivery: FOB Other staff at delivery: Leslie Reyes RN Delivery Method Delivery method: Normal Vaginal Delivery Presentation: Vertex position: OA Anesthesia Type Anesthesia Type: Epidural Delivery Room Medications Delivery room medications: Pitocin 20 u IV Placenta Placenta delivery description: Spontaneous Cord blood sent to lab: Yes cord blood collection: Cord Blood Type Episiotomy Episiotomy description: None EBL Estimated blood loss (ml): 100 Umbilical Cord cord description: 3 Vessels, Nuchal Cord and Loose Additional Procedures Patient is a 35-year-old G7, P6 presented with ruptured membranes. Per patient she has a history of 10 pound babies without shoulder dystocias. No weight on this baby was approximately 8 and half pounds on admission ultrasound. She was induced with Cervidil and Cytotec. She had an epidural placed during labor. She had Pitocin started but it was turned off for decelerations. She eventually progressed to complete at 0227 in the morning on 04/28/25. She pushed about 15 minutes with me at bedside delivering at 0244 a liveborn male. Findings, liveborn male, JOSEPH presentation with a loose nuchal cord x one and no meconium. Apgars were 7, 8, and 9. Weight was 8 pounds 6 ounces. The placenta was complete, spontaneous, grossly normal delivering within 5 minutes of the baby delivering. The patient delivered over an intact perineum. Complications were none. Condition both mom and were in stable condition in the delivery r oom. Complications Complications: None [place] Data (Andre) Data order: 1 [place]'s gender: Male Identification band number: [id number] weight (gms): 3790 g Weight (pounds): 8 lbs and 5.7 ozs length: 51 cm 1 minute: 7 5 minutes: 8 10 minutes: 9
[2025-04-28] MEDS: METHYLERGONOVINE INJ 0.2 MG/ML VIAL IM (03:34)
[2025-04-28] MEDS: TRANEXAMIC ACID 1,000 MG IVPB 1,000 MG/100 ML BAG 200 MG IV (03:46)
[2025-04-28 04:18] LABS: Basophils # (Auto) 0.0 Thou/mm3 (0.0-0.2); Basophils % (Auto) 0 % (0-2.5); Eosinophils # (Auto) 0.0 Thou/mm3 (0.0-0.5); Eosinophils % (Auto) 0 % (0-10); Hematocrit 37.8 % (36.0-46.0); Hemoglobin 12.1 g/dL (12.0-16.0); Immature Granulocytes Auto 0.03 Thou/mm3 (0.00-0.00); Lymphocytes # (Auto) 2.0 Thou/mm3 (1.0-4.8); Lymphocytes % (Auto) 15 % (10-50); Mean Corpuscular HGB Conc 32.0 g/dl (31.0-37.0); Mean Corpuscular Hemoglobin 27.1 pg (25.0-35.0); Mean Corpuscular Volume 85 fL (80-100); Monocytes # (Auto) 0.5 Thou/mm3 (0.0-0.8); Monocytes % (Auto) 4 % (0-12); Neutrophils # (Auto) 10.4 Thou/mm3 (1.8-7.7); Neutrophils % (Auto) 80 % (37-80); Nucleated Red Blood Cell # 0.00 Thou/mm3 (0.00-0.00); Nucleated Red Blood Cell % 0 /100 WBC (0); Platelet Count 211 Thou/mm3 (140-440); RDW Standard Deviation 46.0 fL (36.4-46.3); Red Blood Count 4.47 Miln/mm3 (4.00-5.20); White Blood Count 13.0 Thou/mm3 (3.6-11.0)
[2025-04-28] MEDS: ONDANSETRON INJ 2 MG/ML INJ 2 ML 4 MG IVP (04:18)
[2025-04-28] MEDS: BENZO/LANO/ALOE (Dermoplast) 60 GM CAN 1 SPRAY TOP (04:33)
[2025-04-28] MEDS: IBUPROFEN TAB 400 MG TABLET 800 MG PO ×2 (06:20→21:41)
--- NOTE | 2025-04-28 06:55 | ESPR_ITS ---
RE: ALEM GLASER : 1990 DATE OF SERVICE: 04/28/2025 SUBJECTIVE: day #0, patient denies any problem or complaint. Bleeding controlled. OBJECTIVE: Vital Signs: Blood pressure 132/73, heart rate 55, respirations 18, and temperature is 98.2. Lungs: Clear to auscultation bilaterally. Heart: Regular rate and rhythm. Abdomen: Fundus is firm. Extremities: Nontender. ASSESSMENT: day #0, status post spontaneous vaginal delivery, Uterine atony resovled : s/p bedside evacuation of 300cc earlier this morning. No significant bleeding now. Post delivery Hb 12.1. PLAN: care. automobile sales consultant. Monitor for excessive bleeding. Ambulate with assistance. DT: 06:37:36 TT: 06:53:00 Ref: [id number] - TID: [id number] MTDD
[2025-04-28 10:02] LABS: Basophils # (Auto) 0.0 Thou/mm3 (0.0-0.2); Basophils % (Auto) 0 % (0-2.5); Eosinophils # (Auto) 0.0 Thou/mm3 (0.0-0.5); Eosinophils % (Auto) 0 % (0-10); Hematocrit 32.3 % (36.0-46.0); Hemoglobin 10.7 g/dL (12.0-16.0); Immature Granulocytes Auto 0.05 Thou/mm3 (0.00-0.00); Lymphocytes # (Auto) 2.0 Thou/mm3 (1.0-4.8); Lymphocytes % (Auto) 15 % (10-50); Mean Corpuscular HGB Conc 33.1 g/dl (31.0-37.0); Mean Corpuscular Hemoglobin 27.5 pg (25.0-35.0); Mean Corpuscular Volume 83 fL (80-100); Monocytes # (Auto) 0.8 Thou/mm3 (0.0-0.8); Monocytes % (Auto) 6 % (0-12); Neutrophils # (Auto) 10.3 Thou/mm3 (1.8-7.7); Neutrophils % (Auto) 78 % (37-80); Nucleated Red Blood Cell # 0.00 Thou/mm3 (0.00-0.00); Nucleated Red Blood Cell % 0 /100 WBC (0); Platelet Count 155 Thou/mm3 (140-440); RDW Standard Deviation 45.9 fL (36.4-46.3); Red Blood Count 3.89 Miln/mm3 (4.00-5.20); White Blood Count 13.1 Thou/mm3 (3.6-11.0)
[2025-04-28] MEDS: RINGERS LACTATED 1000 ML 1,000 ML 999 ML IV (12:05)
[2025-04-28 12:29] LABS: Basophils # (Auto) 0.0 Thou/mm3 (0.0-0.2); Basophils % (Auto) 0 % (0-2.5); Eosinophils # (Auto) 0.1 Thou/mm3 (0.0-0.5); Eosinophils % (Auto) 1 % (0-10); Hematocrit 20.6 % (36.0-46.0); Immature Granulocytes Auto 0.02 Thou/mm3 (0.00-0.00); Lymphocytes # (Auto) 1.4 Thou/mm3 (1.0-4.8); Lymphocytes % (Auto) 17 % (10-50); Mean Corpuscular HGB Conc 32.0 g/dl (31.0-37.0); Mean Corpuscular Hemoglobin 27.4 pg (25.0-35.0); Mean Corpuscular Volume 86 fL (80-100); Monocytes # (Auto) 0.6 Thou/mm3 (0.0-0.8); Monocytes % (Auto) 7 % (0-12); Neutrophils # (Auto) 6.1 Thou/mm3 (1.8-7.7); Neutrophils % (Auto) 75 % (37-80); Nucleated Red Blood Cell # 0.00 Thou/mm3 (0.00-0.00); Nucleated Red Blood Cell % 0 /100 WBC (0); Platelet Count 113 Thou/mm3 (140-440); RDW Standard Deviation 47.0 fL (36.4-46.3); Red Blood Count 2.41 Miln/mm3 (4.00-5.20); White Blood Count 8.1 Thou/mm3 (3.6-11.0)
[2025-04-28 13:41] LABS: Hemoglobin 6.6 g/dL (12.0-16.0)
[2025-04-28] MEDS: METHYLERGONOVINE 0.2 MG TABLET PO ×2 (13:54→21:34)
[2025-04-28] MEDS: ACETAMINOPHEN 325 MG TABLET 650 MG PO (14:13)
--- NOTE | 2025-04-28 17:02 | PC.NURSE ---
Dr. Najera called and made aware of patients low heart rate,no new orders at this time.
[2025-04-28] MEDS: DOCUSATE SOD 100 MG CAPSULE PO (21:33)
[2025-04-28 23:39] LABS: Basophils # (Auto) 0.0 Thou/mm3 (0.0-0.2); Basophils % (Auto) 0 % (0-2.5); Eosinophils # (Auto) 0.2 Thou/mm3 (0.0-0.5); Eosinophils % (Auto) 2 % (0-10); Hematocrit 41.7 % (36.0-46.0); Hemoglobin 13.7 g/dL (12.0-16.0); Immature Granulocytes Auto 0.04 Thou/mm3 (0.00-0.00); Lymphocytes # (Auto) 3.0 Thou/mm3 (1.0-4.8); Lymphocytes % (Auto) 28 % (10-50); Mean Corpuscular HGB Conc 32.9 g/dl (31.0-37.0); Mean Corpuscular Hemoglobin 27.6 pg (25.0-35.0); Mean Corpuscular Volume 84 fL (80-100); Monocytes # (Auto) 0.7 Thou/mm3 (0.0-0.8); Monocytes % (Auto) 7 % (0-12); Neutrophils # (Auto) 6.7 Thou/mm3 (1.8-7.7); Neutrophils % (Auto) 63 % (37-80); Nucleated Red Blood Cell # 0.00 Thou/mm3 (0.00-0.00); Nucleated Red Blood Cell % 0 /100 WBC (0); Platelet Count 190 Thou/mm3 (140-440); RDW Standard Deviation 45.5 fL (36.4-46.3); Red Blood Count 4.97 Miln/mm3 (4.00-5.20); White Blood Count 10.7 Thou/mm3 (3.6-11.0)
[2025-04-29 04:15] VITALS: BP 99/65; PULSE 54; RESP 16; TEMP 36.6; O2SAT 96
[2025-04-29 05:44] VITALS: BP 99/65; PULSE 54
[2025-04-29] MEDS: METHYLERGONOVINE 0.2 MG TABLET PO (05:44)
[2025-04-29 05:49] LABS: Basophils # (Auto) 0.0 Thou/mm3 (0.0-0.2); Basophils % (Auto) 0 % (0-2.5); Eosinophils # (Auto) 0.3 Thou/mm3 (0.0-0.5); Eosinophils % (Auto) 3 % (0-10); Hematocrit 37.0 % (36.0-46.0); Hemoglobin 12.2 g/dL (12.0-16.0); Immature Granulocytes Auto 0.02 Thou/mm3 (0.00-0.00); Lymphocytes # (Auto) 2.9 Thou/mm3 (1.0-4.8); Lymphocytes % (Auto) 32 % (10-50); Mean Corpuscular HGB Conc 33.0 g/dl (31.0-37.0); Mean Corpuscular Hemoglobin 27.7 pg (25.0-35.0); Mean Corpuscular Volume 84 fL (80-100); Monocytes # (Auto) 0.6 Thou/mm3 (0.0-0.8); Monocytes % (Auto) 7 % (0-12); Neutrophils # (Auto) 5.3 Thou/mm3 (1.8-7.7); Neutrophils % (Auto) 58 % (37-80); Nucleated Red Blood Cell # 0.00 Thou/mm3 (0.00-0.00); Nucleated Red Blood Cell % 0 /100 WBC (0); Platelet Count 181 Thou/mm3 (140-440); RDW Standard Deviation 45.3 fL (36.4-46.3); Red Blood Count 4.41 Miln/mm3 (4.00-5.20); White Blood Count 9.2 Thou/mm3 (3.6-11.0)
--- NOTE | 2025-04-29 07:52 | ESPR_ITS ---
Subjective Subjective Interval history: Patient is a 35-year-old -0-0-7 day #1 status post vaginal delivery around 230 or 3 in the morning on 04/28/2025. Patient had near syncopal episode yesterday and a hemoglobin is drawn yesterday that was 6.6. Dr Najera ordered 2 units of packed red blood cells. Patient's hemoglobin came back 13 after the 2 units and this morning it is 12.2. Making me wonder if the 6.6 was a false falsely low hemoglobin. Patient is resting comfortably today she wants to go home. She is not complaining of any dizziness lightheadedness or heavy vaginal bleeding. The baby is at bedside. She is breast and bottlefeeding. She is all her care was with [facility]. Exam Vital Signs Temp Pulse Resp BP Pulse Ox O2 Del Method 97.9 F 54 L 16 99/65 96 Room Air 04/29/25 04:15 04/29/25 05:44 04/29/25 04:15 04/29/25 05:44 04/29/25 04:15 04/29/25 04:15 Narrative Exam Patient is alert and oriented x 3 in no apparent distress. Fundus is firm nontender. Extremities show no significant edema or erythema. Objective Labs 04/29/25 05:27 Labs: Laboratory Results - last 24 hr 04/26/25 04/28/25 04/28/25 18:10 09:20 12:10 WBC 13.1 H 8.1 RBC 3.89 L 2.41 L Hgb 10.7 L 6.6 L* D Hct 32.3 L 20.6 L* D MCV 83 86 MCH 27.5 27.4 MCHC 33.1 32.0 RDW Std Deviation 45.9 47.0 H Plt Count 155 D 113 L D Neut % (Auto) 78 75 Lymph % (Auto) 15 17 Mcpherson % (Auto) 6 7 Eos % (Auto) 0 1 Baso % (Auto) 0 0 Neut # (Auto) 10.3 H 6.1 Lymph # (Auto) 2.0 1.4 Mcpherson # (Auto) 0.8 0.6 Eos # (Auto) 0.0 0.1 Baso # (Auto) 0.0 0.0 Immature Gran # (Auto) 0.05 H 0.02 H Absolute Nucleated RBC 0.00 0.00 Immature Gran % 0 0 Nucleated RBC % 0 0 Blood Type AB Positive Antibody Screen NEGATIVE Crossmatch See Detail Blood Bank Wristband ID Yes Blood Bank Comment FFP Ready 04/28/25 04/29/25 23:12 05:27 WBC 10.7 9.2 RBC 4.97 4.41 Hgb 13.7 D 12.2 Hct 41.7 D 37.0 MCV 84 84 MCH 27.6 27.7 MCHC 32.9 33.0 RDW Std Deviation 45.5 45.3 Plt Count 190 D 181 Neut % (Auto) 63 58 Lymph % (Auto) 28 32 Mcpherson % (Auto) 7 7 Eos % (Auto) 2 3 Baso % (Auto) 0 0 Neut # (Auto) 6.7 5.3 Lymph # (Auto) 3.0 2.9 Mcpherson # (Auto) 0.7 0.6 Eos # (Auto) 0.2 0.3 Baso # (Auto) 0.0 0.0 Immature Gran # (Auto) 0.04 H 0.02 H Absolute Nucleated RBC 0.00 0.00 Immature Gran % 0 0 Nucleated RBC % 0 0 Blood Type Antibody Screen Crossmatch Blood Bank Wristband ID Blood Bank Comment Assessment & Plan Problem List (1) Grand multiparity: Status: Acute (2) Blood transfusion during current hospitalization: Problem details: Patient's hemoglobin remained stable at 12.2. Her vital signs are stable. No active bleeding. No signs of hemorrhage. Patient can be discharged home today. Status: Acute (3) care following vaginal delivery: Problem details: Patient will be discharged home today. Discharge instructions given including pelvic rest. Patient will follow-up with [facility] as an outpatient. Status: Acute Time Spent With Patient Time: Total time spent is greater than 50% in coordination of care (as documented) at patient's floor/unit and/or counseling patient:
--- NOTE | 2025-04-29 07:56 | ESDS_ITS ---
DS: Providers Provider Date of admission: 04/26/25 16:56 Primary care physician: Kristal Peralta PA-C Admitting Provider: Didier Shay MD Attending Provider on Admission: Jez Najera MD Consults: 04/28/25 03:04 Referral Routine Comment: Attending Provider on DC: Taylor Vu MD ([facility]) Discharging Provider: Taylor Vu MD ([facility]) Anticipated date of discharge: 04/29/25 DS: Diagnosis Discharge Diagnosis (1) care following vaginal delivery: Status: Acute Assessment & Plan: Discharge home. Pelvic rest x 6 weeks. (2) Blood transfusion during current hospitalization: Status: Acute Assessment & Plan: Patient's status post 2 units packed red blood cells yesterday. She is asymptomatic today. No signs of continued bleeding. She has normal lochia. Discharge home. (3) Grand multiparity: Status: Acute Problem List Completed Was Problem List Reviewed/Reconciled?: Yes Summary/Hosp Course Brief History: 35-year-old 7 para 6 who receives care at [facility] presented to her scheduled NST appointment but was noted to have uterine contractions every 3 to 5 minutes. Due to her grand multiparity and the fact that she was scheduled for induction the following day patient was admitted for induction/augmentation. Patient denies any leakage of fluid or vaginal bleeding and reports adequate movements. Her was significant for grand multiparity, history of shoulder dissociation and a prior delivery and she has delivered her last 2 infants being 9 pounds and 8 ounces. Patient started care with [facility] in [place] and she was planning to deliver there. Please see history and physical for further details Hospital course: Patient underwent an uncomplicated vaginal delivery by Dr. Harriett Vu 04/28/2025 at approximately 3:00 in the morning. Please see delivery notes for further details. On day 0 patient was feeling dizzy lightheaded and a hemoglobin was checked and was 6.6. Dr Najera ordered 2 units of packed red blood cells. Patient's hemoglobin came back 13. On day #1 her hemoglobin was stable at 12.2. Patient denied dizziness and her blood pressure and vital signs were stable. She was reporting normal lochia with no passing of clots or heavy bleeding. She was discharged home day #1 in stable condition. Peripartum Data Delivery Method: Normal Vaginal Delivery Episiotomy Description: None complications: transfusion Status at Discharge Cognitive/behavioral status at discharge: Patient is alert and oriented x 3 in no apparent distress Functional status at discharge: independent ambulation Overall status at discharge: patient is progressing back to baseline Time Spent with Patient Time attestation: Total time spent providing and/or coordinating discharge services: Time spent: Less than 30 minutes Specific discharge activities: Pelvic rest x 6 weeks Exam Vital Signs Temp Pulse Resp BP Pulse Ox O2 Del Method 97.9 F 54 L 16 99/65 96 Room Air 04/29/25 04:15 04/29/25 05:44 04/29/25 04:15 04/29/25 05:44 04/29/25 04:15 04/29/25 04:15 Narrative Exam Fundus firm nontender. Extremities show no significant edema or erythema. Discharge Plan Plan Patient Disposition: HOME (Self Care) Disposition Comment: Stable Patient condition on transfer: Stable Prescriptions/Referrals Prescriptions/Med Rec: New ibuprofen 400 mg Tablet 800 mg PO Q8H PRN (Reason: See Comments) Qty: 60 0RF docusate sodium 100 mg Capsule 100 mg PO BID Qty: 60 0RF No Action albuterol sulfate [Ventolin HFA] 90 mcg/actuation HFA aerosol inhaler 2 puff inhalation Q6H PRN (Reason: shortness of breath or wheezing) Qty: 8.5 0RF albuterol sulfate 90 mcg/actuation HFA aerosol inhaler 2 puff inhalation Q4H PRN (Reason: shortness of breath or wheezing) Qty: 18 0RF ondansetron 4 mg tablet,disintegrating 4 mg PO Q6H PRN (Reason: nausea and vomiting) Qty: 10 0RF PNV no.95-ferrous fumarate-FA [] 28 mg iron- 800 mcg tablet 1 tab PO QDAY Referrals: Kristal Peralta PA-C [Primary Care Provider] - Patient/Caregiver Discharge Instructions Discharge Activity: activity as tolerated Other Discharge Activity Instructions:: Follow up office in 6 weeks. Other Discharge Diet Instructions: General Diet as tolerated Education Materials: After Delivery [place] Concerns, Breast Care After , Feel Healthy After Print Language: Estonian Activity Restrictions/Additional Instructions: Pelvic rest x 6 weeks. Call with heavy vaginal bleeding, severe depression, or fevers 100.4 ?F or higher. Stand Alone Forms: Bree Award Info., Patient Portal Info Letter Discharge Order Discharge Orders: Discharge (Routine); Ordered 04/29/25 Ordered By: Taylor Vu ([facility]) Planned Discharge Date 04/29/25
[2025-04-29 08:25] VITALS: BP 98/62; PULSE 57; RESP 16; TEMP 36.7; O2SAT 97
[2025-04-29] MEDS: DOCUSATE SOD 100 MG CAPSULE PO (08:38)
[2025-04-29 12:45] VITALS: BP 103/69; PULSE 63; RESP 18; TEMP 36.5; O2SAT 97
[2025-04-29] MEDS: IBUPROFEN TAB 400 MG TABLET 800 MG PO (12:56)
== END 2025-04-29 14:30 | disposition home or self-care (01) | DRG 560 ==
LOC: S4SX 04-27 13:45 → S4NX 04-28 05:05
PROVIDERS: Obstetrics & Gynecology; Admitting Provider Obstetrics & Gynecology; PCP Physician Assistant Medical; Visit Provider Specialist
DX: O69.81X0 Labor and delivery complicated by cord around neck, without compression, not applicable or unspecified (principal); Z37.0 Single live birth; Z3A.39 39 weeks gestation of pregnancy; R42 Dizziness and giddiness; Z88.0 Allergy status to penicillin; Z88.2 Allergy status to sulfonamides; O26.893 Other specified pregnancy related conditions, third trimester
CPT/HCPCS: 36415; 59409; 76805; 85025; 86780; 86850; 86900; 86901; 86923; 86927; 94762; J2210; J2405; J2590; J2795; J3010; J3490; J7120; P9016; A9270

== ENCOUNTER 2025-07-03 09:50 | Emergency (ER) | payer MEDICAID, SELFPAY ==
--- NOTE | 2025-07-03 10:10 | EDNOTE_ITS ---
<Statement entered by Aishwarya Smalls MD - 07/03/25 18:07> As co-signing physician, I was present and available for consult prn. I concur with the plan and care as documented by the resident physician ED General RME/HPI General Chief complaint: Vaginal Bleeding Stated complaint: HEAVY MENSTRATION, HEADACHE, WEAK X 3 DAYS Time Seen by Provider: 07/03/25 10:10 Arrival date/time: 07/03/25 09:50 RME / HPI RME / HPI narrative: Kierra is a 35 y/o female with PMHx of asthma who comes in for evaluation of worsening vaginal bleeding, onset Friday, worsened by with associated passing small clots, requiring to wear diapers, with no associated fever, chills or foul smelling lochia, however has associated weakness and headache. Patient reports that she recently delivered about 2 months ago and th at this was her first period. She usually says that her periods are spotting and last about 4 days and are regular and she usually gets a month on the month. She says in previous pregnancies she has never had heavy resumption of her periods. She has been taking ibuprofen 800 mg since to relieve some of her pain. She does take omeprazole for GERD as well. Her [facility] doctor is Dr. Jonas. She had an appointment with her [facility] about 3 weeks ago in which everything she says was normal. She stopped breast-feeding about a month ago. She did require 2 PRBC blood transfusions for her last . No history of endometrial, cervical or ovarian cancer in the family. She has gotten Paps of before which have been normal. She says she shower before coming here more diver, however feels like she has soaked at this time. No other complaints at this time. Does not take any blood thinners or aspirin. Related Data Home Medications ?Medication ?Instructions ?Recorded ?Confirmed vit no.95-ferrous 1 tab PO QDAY 04/25/2501/14 fumarate 28 mg-folic acid 800 mcg tablet () Previous Rx's ?Medication ?Instructions ?Recorded albuterol sulfate 90 mcg/actuation 2 puff inhalation Q 6H PRN 01/06/25 aerosol inhaler (Ventolin HFA) shortness of breath or wheezing #8.5 grams albuterol sulfate 90 mcg/actuation 2 puff inhalation Q 4H PRN 02/07/25 aerosol inhaler shortness of breath or wheez ing #18 grams ondansetron 4 mg disintegrating 4 mg PO Q6H PRN nausea and 02/07/25 tablet vomiting #10 tabs docusate sodium 100 mg capsule 100 mg PO BID #60 caps 04/29/25 ibuprofen 400 mg tablet 800 mg (2 x 400 mg) PO Q8H P RN See 04/29/25 Comments #60 tabs Allergies Allergy/AdvReac Type Severity Reaction Status Date / Time amoxicillin Allergy Severe rash Verified 07/03/25 09:54 Sulfa (Sulfonamide Allergy Severe RASH Verified 07/03/25 09:54 Antibiotics) Review of Systems Review of Systems Narrative Review of Systems: 12 point ROS reviewed and is otherwise negative unless stated directly in the HPI ED Exam Narrative Physical exam: General: AAOx3, NAD, obese female, HEENT: Moist mucous membranes, conjunctiva clear, EOMI, PERRLA, Cardiovascular: S1, S2, radial pulses +2 bilat, RRR Pulmonary: CTAB bilat no cough, no wheezing GI: No tenderness to light or deep palpitation, no guarding, rigidity, rebound tenderness or distension, abdominal striae, bowel sounds present Extremities: No presence of trace or pitting edema in lower extremities bilaterally, dorsalis pedis pulses +2 bilaterally Neuro: AAOx3, no focal motor or sensory deficits in the UE or LE bilat, finger to nose wnl, cerebellar function intact Psych: Good judgement, thought and behavior Course Quality Measures none Orders Category Date Time Status US pelvic complete Stat Exams 07/03/25 10:38 Completed CBC Stat Lab 07/03/25 11:02 Completed CMP [Comprehensive Metabolic Panel] Stat Lab 07/03/25 11:02 Completed HCG,Qualitative Serum Stat Lab 07/03/25 11:02 Completed Acetaminophen Tab [Tylenol Tab] Med 07/03/25 10:37 Discontinued 650 mg PO X1 ONE Ondansetron Odt [Zofran Odt] Med 07/03/25 10:37 Discontinued 4 mg PO X1 ONE Vital Signs Vital signs: Vital Signs Temperature 98.7 F 07/03/25 10:37 Pulse Rate 66 07/03/25 10:37 Respiratory Rate 19 07/03/25 10:37 Blood Pressure 108/76 07/03/25 10:37 Pulse Oximetry (%) 98 07/03/25 10:37 Oxygen Delivery Method Room Air 07/03/25 10:37 Discharge Plan Plan Patient Disposition: HOME (Self Care) Prescriptions/Referrals Prescriptions/Med Rec: No Action albuterol sulfate [Ventolin HFA] 90 mcg/actuation HFA aerosol inhaler 2 puff inhalation Q6H PRN (Reason: shortness of breath or wheezing) Qty: 8.5 0RF albuterol sulfate 90 mcg/actuation HFA aerosol inhaler 2 puff inhalation Q4H PRN (Reason: shortness of breath or wheezing) Qty: 18 0RF ondansetron 4 mg tablet,disintegrating 4 mg PO Q6H PRN (Reason: nausea and vomiting) Qty: 10 0RF ibuprofen 400 mg Tablet 800 mg PO Q8H PRN (Reason: See Comments) Qty: 60 0RF docusate sodium 100 mg Capsule 100 mg PO BID Qty: 60 0RF PNV no.95-ferrous fumarate-FA [] 28 mg iron- 800 mcg tablet 1 tab PO QDAY Referrals: Kristal Peralta PA-C [Primary Care Provider] - In 1 week Problem List Clinical Impression: Menorrhagia Patient/Caregiver Discharge Instructions Discharge Activity: activity as tolerated Education Materials: Understanding Uterine Bleeding, Hormones Control Your ..., ED Heavy Menstrual Bleeding Additional Instructions: Discharge instructions Follow-up with your PCP within 1 week Take your antiemetics that you have at home Follow-up with your PCP and [facility] in regards to your bleeding We recommend performing a complete blood count within 1 week of discharge Speak with your PCP/[facility] for Pap smear outpatient Avoid any NSAIDs including ibuprofen, Aleve, Motrin. Try to take Tylenol instead. If your symptoms of bleeding continue or worsen please come back to the ER Return to ED if your symptoms worsen or return Print Language: Italian Stand Alone Forms: Bree Award Info., Patient Portal Info Letter MDM Narrative MDM hospital course (for use when minimal MDM required): 1237: For basic labs which showed hemoglobin 11.8, performed manual vaginal exam which showed some bleeding, however no clots at this time. Pelvic ultrasound was a negative study, beta-hCG negative. At this point, bleeding likely related to menorrhagia as this is her first period after delivery [address] not indicated at this time as neurologic exam was within normal limits and patient had already breast-fed. She did reports afterwards that her delivery that there were some areas that were not clean, unsure if she was referring to retained placenta or products of conception, however at this time she will be medically cleared for discharge with strict follow-up. Her nausea has improved. With her hemoglobin 11.8, this can be normal during active menstruation. Patient is medically cleared for discharge at this time. Medication Administration(s) Medication Administration History Discontinued Medications Acetaminophen (Acetaminophen 325 Mg Tablet) 650 mg PO X1 ONE Stop: 07/03/25 10:38 Last Admin: 07/03/25 11:07 Dose: 650 mg Documented By: GERSON Ondansetron HCl (Ondansetron Odt 4 Mg Tabrap) 4 mg PO X1 ONE; Protocol Stop: 07/03/25 10:38 Last Admin: 07/03/25 11:07 Dose: 4 mg Documented By: GERSON Diagnosis Diagnoses ruled out and/or further discussions: Menorrhagia, retained products of conception, uterine bleeding, Audrey Syndrome
[2025-07-03 10:37] VITALS: BP 108/76; PULSE 66; RESP 19; TEMP 37.1; O2SAT 98; BMI 38.4
--- NOTE | 2025-07-03 10:38 | XR_ITS ---
Examination: Pelvic ultrasound, transabdominal, complete Technique: Transabdominal ultrasound of the pelvis performed using grayscale imaging Date and time of exam: July 03, 2025, 1114 hours INDICATIONS: Irregular heavy menses 2 months FINDINGS: Uterus 8.4 cm endometrial site 0.4 cm No uterine mass or intrauterine gestation Right ovary 2.2 cm arterial flow small follicles Left ovary 2.4 cm arterial flow IMPRESSION: Negative study
[2025-07-03] MEDS: ACETAMINOPHEN 325 MG TABLET 650 MG PO (11:07)
[2025-07-03] MEDS: ONDANSETRON ODT 4 MG TABRAP PO (11:07)
[2025-07-03 11:45] LABS: Basophils # (Auto) 0.0 Thou/mm3 (0.0-0.2); Basophils % (Auto) 0 % (0-2.5); Eosinophils # (Auto) 0.4 Thou/mm3 (0.0-0.5); Eosinophils % (Auto) 5 % (0-10); Hematocrit 36.0 % (36.0-46.0); Hemoglobin 11.8 g/dL (12.0-16.0); Immature Granulocytes Auto 0.03 Thou/mm3 (0.00-0.00); Lymphocytes # (Auto) 2.8 Thou/mm3 (1.0-4.8); Lymphocytes % (Auto) 35 % (10-50); Mean Corpuscular HGB Conc 32.8 g/dl (31.0-37.0); Mean Corpuscular Hemoglobin 27.8 pg (25.0-35.0); Mean Corpuscular Volume 85 fL (80-100); Monocytes # (Auto) 0.5 Thou/mm3 (0.0-0.8); Monocytes % (Auto) 6 % (0-12); Neutrophils # (Auto) 4.3 Thou/mm3 (1.8-7.7); Neutrophils % (Auto) 53 % (37-80); Nucleated Red Blood Cell # 0.00 Thou/mm3 (0.00-0.00); Nucleated Red Blood Cell % 0 /100 WBC (0); Platelet Count 262 Thou/mm3 (140-440); RDW Standard Deviation 51.0 fL (36.4-46.3); Red Blood Count 4.25 Miln/mm3 (4.00-5.20); White Blood Count 8.0 Thou/mm3 (3.6-11.0)
[2025-07-03 12:02] LABS: Alanine Aminotransferase 32 U/L (10-49); Albumin, Serum 4.5 gm/dL (3.5-5.0); Albumin/Globulin Ratio 2.0 (1.2-2.2); Alkaline Phosphatase 77 U/L (46-116); Anion Gap 10 (7-16); Aspartate Amino Transferase 21 U/L (0-34); BUN/Creatinine Ratio 28 Ratio (12-20); Bilirubin,Total 0.8 mg/dL (0.3-1.2); Blood Urea Nitrogen 17 mg/dL (9-23); Calcium 9.1 mg/dL (8.3-10.6); Calcium (Corrected) 9.1 mg/dL (8.5-10.1); Carbon Dioxide 24.6 mMol/L (20.0-31.0); Chloride 107 mMol/L (98-107); Creatinine (Component) 0.6 mg/dL (0.6-1.3); Estimated Creatinine Clearance 143.5 mL/min (>60); Globulin 2.3 gm/dL (2.3-3.5); Glucose 93 mg/dL (74-106); Osmolality,Calculated 284 (275-295); Potassium 4.1 mMol/L (3.4-5.1); Sodium 142 mMol/L (136-145); Total Protein 6.8 gm/dL (5.7-8.2); eGFR > 60 See Note
[2025-07-03 12:05] LABS: HCG,Qualitative Serum Negative
== END 2025-07-03 12:54 | disposition home or self-care (01) ==
PROVIDERS: PCP Physician Assistant Medical
DX: N92.0 Excessive and frequent menstruation with regular cycle (principal)
CPT/HCPCS: 36415; 76856; 80053; 84703; 85025; 99283; Q0162; A9270

== ENCOUNTER 2025-08-07 10:22 | Emergency (ER) | payer MEDICAID, SELFPAY ==
[2025-08-07 10:23] VITALS: BMI 38.4
[2025-08-07 10:40] VITALS: BP 103/63; PULSE 86; RESP 18; TEMP 36.8; O2SAT 96
--- NOTE | 2025-08-07 10:48 | XR_ITS ---
EXAMINATION: PA chest single view TECHNIQUE: Upright PA chest single view Date and time: August 07, 2025, 1054 hours, comparison February 12, 2025 INDICATIONS: Shortness of breath beginning 3 days ago, asthma history FINDINGS: Normal heart size. No hyperexpansion. No pneumonia or pulmonary edema. Osseous structures intact IMPRESSION: No active disease
[2025-08-07] MEDS: ACETAMINOPHEN w/COD 300-30 TABLET 2 TAB PO (11:02)
[2025-08-07] MEDS: ALBUTEROL/IPRATROPIUM (Duoneb) RT SOL 3 ML NEBU 6 ML INH (11:04)
[2025-08-07 11:05] VITALS: PULSE 79; RESP 18; O2SAT 99
--- NOTE | 2025-08-07 11:07 | PD.EDSOB ---
ED SOB =RME/HPI General Chief Complaint: Shortness of Breath/Dyspnea Stated Complaint: DIFF BREATHING X 3 DAYS, HX ASTHMA Time Seen by Provider: 08/07/25 10:46 Arrival date/time: 08/07/25 10:22 RME / HPI RME / HPI Narrative: See [facility] for Dr. Agrawal's HPI Documentation. Related Data Home Medications ?Medication ?Instructions ?Recorded ?Confirmed vit no.95-ferrous 1 tab PO QDAY 04/25/25 04/25/25 fumarate 28 mg-folic acid 800 mcg tablet () Previous Rx's ?Medication ?Instructions ?Recorded albuterol sulfate 90 mcg/actuation 2 puff inhalation Q6H PRN 01/06/25 aerosol inhaler (Ventolin HFA) shortness of breath or wheezing #8.5 grams albuterol sulfate 90 mcg/actuation 2 puff inhalation Q4H PRN 02/07/25 aerosol inhaler shortness of breath or wheezing #18 grams ondansetron 4 mg disintegrating 4 mg PO Q6H PRN nausea and 02/07/25 tablet vomiting #10 tabs docusate sodium 100 mg capsule 100 mg PO BID #60 caps 04/29/25 ibuprofen 400 mg tablet 800 mg (2 x 400 mg) PO Q8H PRN See 04/29/25 Comments #60 tabs azithromycin 500 mg tablet 500 mg PO QDAY 3 days #3 tabs 08/07/25 (Zithromax TRI-EVONNE) prednisone 20 mg tablet 40 mg PO BID 3 days #12 tabs 08/07/25 Allergies Allergy/AdvReac Type Severity Reaction Status Date / Time amoxicillin Allergy Severe rash Verified 08/07/25 10:24 Sulfa (Sulfonamide Allergy Severe RASH Verified 08/07/25 10:24 Antibiotics) Review of Systems Review of Systems Systems Reviewed: All systems reviewed, normal except as documented Past Medical History Past Medical History RESPIRATORY: Positive Asthma (self, albuterol inhaler PRN) GASTROINTESTINAL: Positive Obesity REPRODUCTIVE: Positive Previous Pregnancies OTHER HISTORY: Positive Hospitalization (child ) Surgical History SURGICAL: Positive Joint Replacement (knee surgery self 2022) Social History SMOKING STATUS: Never smoker SECOND HAND EXPOSURE: No SUBSTANCE USE: does not use ALCOHOL: Never ED Exam Narrative Physical exam: See [facility] for Dr. Agrawal's HPI Documentation. Course Quality Measures none Orders Category Date Time Status Bedside COVID-19 Antigen Test NOW Care 08/07/25 10:47 Completed XR chest 1V portable Stat Exams 08/07/25 10:48 Completed Influenza A & B Rapid Panel Stat Lab 08/07/25 11:08 Completed ACETAMINOPHEN w/COD 300-30 [Tylenol w/Cod #3] Med 08/07/25 10:47 Discontinued 2 tab PO X1 ONE Albuterol/Ipratr Rt Fozia [Duoneb Rt Fozia] Med 08/07/25 10:47 Discontinued 6 ml INH X1 ONE predniSONE Med 08/07/25 10:47 Discontinued 80 mg PO X1 ONE Vital Signs Vital signs: Vital Signs Temperature 98.2 F 08/07/25 10:40 Pulse Rate 86 08/07/25 10:40 Respiratory Rate 18 08/07/25 10:40 Blood Pressure 103/63 08/07/25 10:40 Pulse Oximetry (%) 96 08/07/25 10:40 Oxygen Delivery Method Room Air 08/07/25 10:40 Shortness of Breath / Dyspnea MDM Narrative [facility] Narrative:: This section includes all my notes and documentations, including HPI, PE, and ED course. Clarence Agrawal MD HPI: 35-year-old female with history of asthma here with about a week history of worsening cough, productive cough, purulent sputum, and dyspnea. No other complaints. ROS: All negative except as documented in HPI. Physical Exam: General: Alert and oriented. Hacking cough noted. Eyes: Conjunctivae and lids clear. ENT: No nasal congestion. Neck: Supple. Heart: RRR. Lungs: No respiratory distress. Decreased air movement with diffuse rhonchi. Abdomen: Soft and nontender. Skin: Warm and dry. Neuro: Alert and oriented X 3. I reviewed all diagnostic test results: My interpretation of the chest x-ray is: No active disease. Covid/Influenza negative. At this point, diagnoses include: Asthma attack Respiratory infection Treatment here included: Duoneb X 2 Prednisone 80 mg Two Tylenol #3 Significant improvement noted. Recommended a trial of outpatient treatment. Based on my best medical judgment, made decision no further evaluation or treatment indicated at this time. Patient understands and agrees to the discharge instructions customized and printed, see below. Discharge instructions from Dr. Agrawal: --No physical exertion for 3 days to help rest the lungs. ?No smoking or exposure to smoking or pets or dust or cold or humidity. --Zithromax to kill the germs causing the bronchitis. --Prednisone to help decrease the swelling in the airways. --Albuterol 2 puffs every 4-6 hours for 3 days to help keep the airways open. Then as needed for cough or shortness of breath. --See a private doctor next week for recheck if not completely better. --Seek immediate medical care with worsening or with any concerns. Clarence Agrawal MD Patient data External records reviewed:: [facility] previous records Clinical information provided by:: patient Social determinants that could affect healthcare access:: none Patient has the following chronic illnesses:: Asthma How is presenting disease/condition affected by chronic disease/condition?: caused by Evaluation data The following diagnostics were reviewed and interpreted by me:: lab results and radiology exam(s) Lab and/or radiology exams considered but not ordered:: none Interpretation Summary: I reviewed all diagnostic test results: My interpretation of the chest x-ray is: No active disease. Covid/Influenza negative. Medications / Prescriptions Medications or Prescriptions considered but not ordered:: none Medication administrations:: Medication Administration History Discontinued Medications Acetaminophen/Codeine Phosphate (Acetaminophen W/Cod 300-30 Tablet) 2 tab PO X1 ONE Stop: 08/07/25 10:48 Last Admin: 08/07/25 11:02 Dose: 2 tab Documented By: Albuterol/Ipratropium (Albuterol/Ipratropium (Duoneb) Rt Fozia 3 Ml Nebu) 6 ml INH X1 ONE Stop: 08/07/25 10:48 Last Admin: 08/07/25 11:04 Dose: 6 ml Documented By: KALYN Prednisone (Prednisone 20 Mg Tablet) 80 mg PO X1 ONE Stop: 08/07/25 10:48 Last Admin: 08/07/25 11:01 Dose: 80 mg Documented By: Treatment here included: Duoneb X 2 Prednisone 80 mg Two Tylenol #3 Consultations Consultation(s) initiated? (list below): No Diagnosis Shortness of Breath Differential Diagnosis: acute exacerbation of chronic obstructive airways disease, congestive heart failure, community acquired pneumonia and asthma with exacerbation Most likely diagnosis given after review of the tests above:: Asthma attack Respiratory infection Admission Indicated Admission indicated?: not indicated Explain why admission is indicated or not indicated:: With significant improvement and no condition needing emergent intervention, there was no indication for admission. Admission Request Was there a request for admission?: No Disposition Plan Disposition Plan: Discharge Discharge Attestation Discharge Attestation: The patient and all family members were given an opportunity to ask questions and understood the discharge instructions. Discharge instructions specifically effects, indications for sooner follow up or return to the emergency department, and the expected course of current diagnosis. Patient condition: Stable Discharge Plan Plan Patient Disposition: HOME (Self Care) Prescriptions/Referrals Prescriptions/Med Rec: New prednisone 20 mg tablet 40 mg PO BID 3 Days Qty: 12 0RF Taper: Prednisone Taper 20 mg DAILY for 2 Days and 0 Hour 10 mg DAILY for 2 Days and 0 Hour 5 mg DAILY for 7 Days and 0 Hour azithromycin [Zithromax TRI-EVONNE] 500 mg tablet 500 mg PO QDAY 3 Days Qty: 3 0RF No Action albuterol sulfate [Ventolin HFA] 90 mcg/actuation HFA aerosol inhaler 2 puff inhalation Q6H PRN (Reason: shortness of breath or wheezing) Qty: 8.5 0RF albuterol sulfate 90 mcg/actuation HFA aerosol inhaler 2 puff inhalation Q4H PRN (Reason: shortness of breath or wheezing) Qty: 18 0RF ondansetron 4 mg tablet,disintegrating 4 mg PO Q6H PRN (Reason: nausea and vomiting) Qty: 10 0RF ibuprofen 400 mg Tablet 800 mg PO Q8H PRN (Reason: See Comments) Qty: 60 0RF docusate sodium 100 mg Capsule 100 mg PO BID Qty: 60 0RF PNV no.95-ferrous fumarate-FA [] 28 mg iron- 800 mcg tablet 1 tab PO QDAY Referrals: No Primary/Family,Physician [Primary Care Provider] - In 1 week Problem List Clinical Impression: Asthma attack, Respiratory infection Patient/Caregiver Discharge Instructions Discharge Activity: activity as tolerated Education Materials: ED Asthma, Acute (Adult) Additional Instructions: Discharge instructions from Dr. Argawal: --No physical exertion for 3 days to help rest the lungs. ?No smoking or exposure to smoking or pets or dust or cold or humidity. --Zithromax to kill the germs causing the bronchitis. --Prednisone to help decrease the swelling in the airways. --Albuterol 2 puffs every 4-6 hours for 3 days to help keep the airways open. Then as needed for cough or shortness of breath. --See a private doctor next week for recheck if not completely better. --Seek immediate medical care with worsening or with any concerns. Print Language: Bulgarian Stand Alone Forms: Bree Award Info., Patient Portal Info Letter
[2025-08-07 11:59] LABS: Influenza A Ag Negative; Influenza B Ag Negative
== END 2025-08-07 12:38 | disposition home or self-care (01) ==
PROVIDERS: Emergency Provider Emergency Medicine
DX: J06.9 Acute upper respiratory infection, unspecified (principal); J45.909 Unspecified asthma, uncomplicated; Z11.52 Encounter for screening for COVID-19
CPT/HCPCS: 71045; 87502; 87635; 94640; 99283; A9270; J7512

== ENCOUNTER 2025-08-21 13:50 | Emergency (ER) | payer MEDICAID, SELFPAY ==
[2025-08-21 13:51] VITALS: BMI 39.6
[2025-08-21 14:09] VITALS: BP 127/82; PULSE 78; RESP 20; TEMP 36.9; O2SAT 99
--- NOTE | 2025-08-21 14:38 | PD.EDBACK ---
ED Back Injury Pain RME/HPI General Chief Complaint: Back Pain/Injury Stated Complaint: BILAT. UPPER BACK X2 DAYS Time Seen by Provider: 08/21/25 14:15 Arrival date/time: 08/21/25 13:50 This is a 35-year-old female that comes into the emergency room with complaints of mid and lower back pain bilaterally for the past 2 days. Patient denies any trauma. Patient denies any urinary symptoms. Patient denies any other symptoms. Related Data Home Medications ?Medication ?Instructions ?Recorded ?Confirmed vit no.95-ferrous 1 tab PO QDAY 04/25/25 04/25/25 fumarate 28 mg-folic acid 800 mcg tablet () Previous Rx's ?Medication ?Instructions ?Recorded albuterol sulfate 90 mcg/actuation 2 puff inhalation Q6H PRN 01/06/25 aerosol inhaler (Ventolin HFA) shortness of breath or wheezing #8.5 grams albuterol sulfate 90 mcg/actuation 2 puff inhalation Q4H PRN 02/07/25 aerosol inhaler shortness of breath or wheezing #18 grams ondansetron 4 mg disintegrating 4 mg PO Q6H PRN nausea and 02/07/25 tablet vomiting #10 tabs docusate sodium 100 mg capsule 100 mg PO BID #60 caps 04/29/25 ibuprofen 400 mg tablet 800 mg (2 x 400 mg) PO Q8H PRN See 04/29/25 Comments #60 tabs cyclobenzaprine 10 mg tablet 10 mg PO HS PRN muscle spasm #20 08/21/25 tabs ibuprofen 800 mg tablet 800 mg PO Q6H PRN pain #20 tabs 08/21/25 Allergies Allergy/AdvReac Type Severity Reaction Status Date / Time amoxicillin Allergy Severe rash Verified 08/21/25 13:53 Sulfa (Sulfonamide Allergy Severe RASH Verified 08/21/25 13:53 Antibiotics) Review of Systems Review of Systems Systems Reviewed: All systems reviewed, normal except as documented Past Medical History Past Medical History RESPIRATORY: Positive Asthma (self, albuterol inhaler PRN) GASTROINTESTINAL: Positive Obesity REPRODUCTIVE: Positive Previous Pregnancies OTHER HISTORY: Positive Hospitalization (child ) Surgical History SURGICAL: Positive Joint Replacement (knee surgery self 2022) Social History SMOKING STATUS: Never smoker SECOND HAND EXPOSURE: No SUBSTANCE USE: does not use ALCOHOL: Never ED Exam Narrative Physical exam: VITAL SIGNS: Reviewed. GENERAL APPEARANCE: Alert and interactive, follows commands, no acute distress HEAD AND FACE: Non-traumatic. ENT: PERRL, conjuctiva pink and clear, eyelid no trauma, Mucous membrane moist. NECK: Supple, nontender, no nuchal rigidity. CHEST: No tenderness, no crepitus, no paradoxical movement, no retractions. LUNGS: breathing even and unlabored HEART: Regular rate, cap refill less than 2 seconds ABDOMEN: Soft, nondistended, no guarding, nontender, no rebound, no masses, NEUROLOGICAL: Gross motor function intact sensory function intact, Appropriate for age. MUSCULOSKELETAL: low back nontender, full range of motion. no midline tenderness, no meningismus, no step offs EXTREMITIES: No redness no swelling no skin breakdown on bilateral foot and leg. Distal neurovascular status intact bilateral foot SKIN: Color pink, dry Course Orders Category Date Time Status CT abdomen pelvis wo con Stat Exams 08/21/25 15:16 Completed HCG Qualitative,Urine Stat Lab 08/21/25 14:34 Completed Urinalysis, C/S if Indicated Stat Lab 08/21/25 14:34 Completed CYCLObenzaPRINE [Flexeril] Med 08/21/25 17:26 Once 5 mg PO X1 ONE HYDROcodone*/APAP 5/325 [[place] 5/325] Med 08/21/25 17:26 Once 1 tab PO X1 ONE Ketorolac Inj [Toradol Inj] Med 08/21/25 17:26 Once 60 mg IM X1 ONE Metoclopramide [Reglan] Med 08/21/25 17:26 Once 10 mg PO X1 ONE Vital Signs Vital signs: Vital Signs Temperature 98.4 F 08/21/25 14:09 Pulse Rate 78 08/21/25 14:09 Respiratory Rate 20 08/21/25 14:09 Blood Pressure 127/82 08/21/25 14:09 Pulse Oximetry (%) 99 08/21/25 14:09 Oxygen Delivery Method Room Air 08/21/25 14:09 Back Pain / Injury MDM Narrative MDM Narrative:: Patient not on control but does not know if she is . Will order UA along with an hCG. Patient hCG was negative and urinalysis shows blood. A CT abdomen and pelvis without contrast ordered. ct abdomen and pelvis: Findings: Diffuse fatty infiltration throughout the liver no focal liver or splenic lesions No gallstones No pancreatic or adrenal mass No renal or ureteral calculi, no hydronephrosis Aorta normal size Tiny fat-containing umbilical hernia No pericecal inflammatory change No pelvic mass No bladder mass or bladder calculi The Kal structures are intact IMPRESSION: No renal or ureteral calculi, no hydronephrosis No bladder mass or bladder calculi Mild disc narrowing L5-S1 Today patient had Ct scan. There was no acute fracture seen. Exam appeared unremarkable. I explained to patient at length that if there was continued pain to this area or worsened to come back to ED or see primary provider for more xrays or further testing such as CT scan or MRI. ct scans are not perfect and sometimes serial films needed. Patient verbalized understanding. Patient states they will follow up with primary provider in 1-2 days or come back to ED if symptoms change or worsen. I spoke to patient at length. Will treat for pain. Will send patient home with anti-inflammatories and a muscle relaxant. Patient told to follow-up with primary provider in 1 to 2 days. [place] to the emergency room symptoms change or worsen. Patient verbalized understanding and comfortable plan of care. Patient given Toradol, [place], Flexeril and a dose of Reglan. Discharge Plan Plan Patient Disposition: HOME (Self Care) Patient condition on transfer: Stable Prescriptions/Referrals Prescriptions/Med Rec: New cyclobenzaprine 10 mg tablet 10 mg PO HS PRN (Reason: muscle spasm) Qty: 20 0RF ibuprofen 800 mg tablet 800 mg PO Q6H PRN (Reason: pain) Qty: 20 0RF No Action albuterol sulfate [Ventolin HFA] 90 mcg/actuation HFA aerosol inhaler 2 puff inhalation Q6H PRN (Reason: shortness of breath or wheezing) Qty: 8.5 0RF albuterol sulfate 90 mcg/actuation HFA aerosol inhaler 2 puff inhalation Q4H PRN (Reason: shortness of breath or wheezing) Qty: 18 0RF ondansetron 4 mg tablet,disintegrating 4 mg PO Q6H PRN (Reason: nausea and vomiting) Qty: 10 0RF ibuprofen 400 mg Tablet 800 mg PO Q8H PRN (Reason: See Comments) Qty: 60 0RF docusate sodium 100 mg Capsule 100 mg PO BID Qty: 60 0RF PNV no.95-ferrous fumarate-FA [] 28 mg iron- 800 mcg tablet 1 tab PO QDAY Referrals: Kristal Peralta PA-C [Primary Care Provider] - In 1 week Problem List Clinical Impression: Back pain, Hematuria Patient/Caregiver Discharge Instructions Discharge Activity: activity as tolerated Education Materials: ED Back Pain (Acute or Chronic), ED Hematuria Additional Instructions: Follow up with primary provider in 1-2 days. Come back to ED if symptoms change or worsen. ct abdomen and pelvis results: Findings: Diffuse fatty infiltration throughout the liver no focal liver or splenic lesions No gallstones No pancreatic or adrenal mass No renal or ureteral calculi, no hydronephrosis Aorta normal size Tiny fat-containing umbilical hernia No pericecal inflammatory change No pelvic mass No bladder mass or bladder calculi The Kal structures are intact IMPRESSION: No renal or ureteral calculi, no hydronephrosis No bladder mass or bladder calculi Mild disc narrowing L5-S1 Print Language: Indonesian Stand Alone Forms: Bree Award Info., Patient Portal Info Letter PA/AUTOMATION DESIGN ENGINEER Supervising Physician PA/AUTOMATION DESIGN ENGINEER Supervising Physician: rebecca
[2025-08-21 14:46] LABS: Collection Type, Urine Voided
[2025-08-21 14:56] LABS: HCG Qualitative,Urine Negative
[2025-08-21 14:57] LABS: Bilirubin,Urine Negative (Negative); Blood,Urine 2+ (Negative); Clarity,Urine Clear (Clear/Hazy); Color,Urine Yellow (Lt Yel-Yel); Culture Indicated,Urine Not Indicated; Glucose, Urine Negative (Negative); Ketones,Urine Negative (Negative); Leukocyte Esterase,Urine Negative (Negative); Nitrite,Urine Negative (Negative); PH,Urine 6.0 (5.0-7.0); Protein,Urine Negative (Neg - Trace); RBC,Urine 12 /hpf (0-3); Specific Gravity,Urine 1.026 (1.001-1.035); Squamous Epithelial Cell,Urine 4 /hpf (0-5); Urobilinogen,Urine Negative mg/dL (0.0-1.0); WBC,Urine 1 /hpf (0-5)
--- NOTE | 2025-08-21 15:16 | XR_ITS ---
Examination: CT abdomen and pelvis without contrast. Coronal 3-D reconstructions. Sagittal 2-D reconstructions. Date and time of exam: August 21, 2025, 1550 hours INDICATIONS: Hematuria with bilateral flank pain beginning 2 days ago CTDI: vol (mGy): 14.1 DLP: (mGycm): 746 Technique: Axial images of the abdomen have been obtained, 3 mm slice thickness Intravenous contrast material has not been administered. Low dose protocols were performed. One or more of the following dose reduction techniques were used; automated exposure control, adjustment of the mA and/or KV according to patient size, use of iterative reconstruction technique. Findings: Diffuse fatty infiltration throughout the liver no focal liver or splenic lesions No gallstones No pancreatic or adrenal mass No renal or ureteral calculi, no hydronephrosis Aorta normal size Tiny fat-containing umbilical hernia No pericecal inflammatory change No pelvic mass No bladder mass or bladder calculi The Kal structures are intact IMPRESSION: No renal or ureteral calculi, no hydronephrosis No bladder mass or bladder calculi Mild disc narrowing L5-S1
[2025-08-21] MEDS: METOCLOPRAMIDE 5 MG TABLET 10 MG PO (17:40)
[2025-08-21] MEDS: HYDROcodone/APAP 5/325 TABLET 1 TAB PO (17:41)
[2025-08-21] MEDS: KETOROLAC INJ 60 MG/2 ML VIAL IM (17:41)
== END 2025-08-21 17:46 | disposition home or self-care (01) ==
PROVIDERS: Nurse Practitioner Family; Emergency Provider Emergency Medicine; PCP Physician Assistant Medical
DX: M48.07 Spinal stenosis, lumbosacral region (principal); R31.9 Hematuria, unspecified; R10.A3 Flank pain, bilateral
CPT/HCPCS: 74176; 81001; 81025; 96372; 99283; J1885; A9270

== ENCOUNTER 2025-08-28 08:37 | Emergency (ER) | payer MEDICAID, SELFPAY ==
[2025-08-28 08:48] VITALS: BP 115/81; PULSE 76; RESP 16; TEMP 36.8; O2SAT 98; BMI 40.2
--- NOTE | 2025-08-28 08:58 | XR_ITS ---
Examination: Complete OB ultrasound, less than 14 weeks, transabdominal Date and time of exam: August 28, 2025, 1015 hours, comparison April 26, 2025 INDICATIONS: Early by history with heavy vaginal bleeding beginning today Technique: Obstetrical ultrasound images less than 14 weeks performed via transabdominal imaging Findings: Uterus 10.4 cm endometrial stripe 1.5 cm No intrauterine gestation or definite retained products of conception Right ovary 2.5 cm arterial flow Left ovary 2.6 cm arterial flow IMPRESSION: No intrauterine gestation or definite findings of retained products of conception
--- NOTE | 2025-08-28 09:00 | EDNOTE_ITS ---
ED OB Contraction Preg RMI/HPI General Chief complaint: Vaginal Bleeding Stated complaint: VAGINAL BLEEDING/CRAMPING; PREG 4WKS Time Seen by Provider: 08/28/25 08:42 Source: patient Arrival date/time: 08/28/25 08:37 35-year-old female with no known medical history presents to the emergency room with a chief complaint of vaginal bleeding and abdominal cramping x 2 days. Patient states she is currently 4 weeks . Mode of arrival: ambulatory Limitations: no limitations Related Data Home Medications ?Medication ?Instructions ?Recorded ?Confirmed vit no.95-ferrous 1 tab PO QDAY 04/25/2501/14 fumarate 28 mg-folic acid 800 mcg tablet () Previous Rx's ?Medication ?Instructions ?Recorded albuterol sulfate 90 mcg/actuation 2 puff inhalation Q 6H PRN 01/06/25 aerosol inhaler (Ventolin HFA) shortness of breath or wheezing #8.5 grams albuterol sulfate 90 mcg/actuation 2 puff inhalation Q 4H PRN 02/07/25 aerosol inhaler shortness of breath or wheez ing #18 grams ondansetron 4 mg disintegrating 4 mg PO Q6H PRN nausea and 02/07/25 tablet vomiting #10 tabs docusate sodium 100 mg capsule 100 mg PO BID #60 caps 04/29/25 ibuprofen 400 mg tablet 800 mg (2 x 400 mg) PO Q8H P RN See 04/29/25 Comments #60 tabs cyclobenzaprine 10 mg tablet 10 mg PO HS PRN muscle sp asm #20 08/21/25 tabs ibuprofen 800 mg tablet 800 mg PO Q6H PRN pain #20 t abs 08/21/25 Allergies Allergy/AdvReac Type Severity Reaction Status Date / Time amoxicillin Allergy Severe rash Verified 08/28/25 08:40 Sulfa (Sulfonamide Allergy Severe RASH Verified 08/28/25 08:40 Antibiotics) Review of Systems Review of Systems Systems Reviewed: All systems reviewed, normal except as documented Constitutional Constitutional: Reports system reviewed and no additional complaints, except as documented, Denies fatigue, Denies fever(s), Denies headache(s) and Denies weakness Eyes Eyes: Reports system reviewed and no additional complaints, except as documented, Denies blurry vision and Denies change in vision ENT Ears, Nose, Mouth, and Throat: Reports system reviewed and no additional complaints, except as documented, Denies otalgia, Denies headache(s), Denies nasal congestion, Denies throat swelling and Denies vertigo Cardiovascular Cardiovascular: Reports system reviewed and no additional complaints, except as documented, Denies chest pain, Denies dyspnea and Denies dyspnea on exertion Respiratory Respiratory: Reports system reviewed and no additional complaints, except as documented, Denies chest congestion, Denies cough, Denies dyspnea, Denies dyspnea on exertion and Denies wheezing Gastrointestinal Gastrointestinal: Reports system reviewed and no additional complaints, except as documented, Denies abdominal pain, Denies cramping, Denies nausea and Denies vomiting Genitourinary Genitourinary: Reports system reviewed and no additional complaints, except as documented and Reports abnormal vaginal bleeding Musculoskeletal Musculoskeletal: Reports system reviewed and no additional complaints, except as documented and Denies back pain Integumentary/Breasts Skin/Breast: Reports system reviewed and no additional complaints, except as documented and Denies wounds Neurologic Neurologic: Reports system reviewed and no additional complaints, except as documented, Denies confusion, Denies headache(s), Denies lack of coordination, Denies vertigo and Denies weakness Psychiatric Psychiatric: Reports system reviewed and no additional complaints, except as documented, Denies anxiety, Denies confusion, Denies depression, Denies paranoia, Denies suicidal ideation and Denies tactile hallucinations Endocrine Endocrine: Reports system reviewed and no additional complaints, except as documented and Denies fatigue Hematologic/Lymphatic Hematologic/Lymphatic: Reports system reviewed and no additional complaints, except as documented and Denies lymphadenopathy Allergic/Immunologic Allergic/Immunologic: Reports system reviewed and no additional complaints, except as documented, Denies throat swelling, Denies urticaria and Denies wheezing Past Medical History Past Medical History NEUROLOGIC: Negative Neurological Disorders or Seizures CARDIAC: Negative Cardiac Disorders or Congestive Heart Failure RESPIRATORY: Positive Asthma (self, albuterol inhaler PRN); Negative Chronic Obstructive Pulmonary Disease (COPD) GASTROINTESTINAL: Positive Obesity; Negative Gastrointestinal Disorders or Hepatitis GENITOURINARY: Negative Genitourinary Disorders or Renal Disease REPRODUCTIVE: Positive Previous Pregnancies MUSCULOSKELETAL: Negative Musculoskeletal Disorders ENDOCRINE: Negative Endocrine Disorders, Diabetes Mellitus Type 1 or Diabetes Mellitus Type 2 HEMATOLOGIC: Negative Blood Disorders or Sickle Cell Disease OTHER HISTORY: Positive Hospitalization (child ); Negative Autoimmune Disease, Down Syndrome, Developmental Delay, Shingles, Falls, Blood Transfusions, Blood Transfusion Reaction, Anesthesia Reactions, Organ Transplant, Chemotherapy, Radiation Therapy, Hyperbaric Therapy, MRSA, VRSA, Vancomycin-Resistant Enterococci, Human Immunodeficiency Virus (HIV), Chicken Pox, Measles, Mumps, Rubella ([place] Measles), Pertussis, Clostridium Difficile or Cancer Family History FAMILY HISTORY: Negative Family Psychiatric Problems, Family Respiratory Disorders, Family Cardiac Disorders, Family Gastrointestinal Problems, Family Cancer, Family Surgery or Family Anesthesia Reaction Surgical History SURGICAL: Positive Joint Replacement (knee surgery self 2022); Negative Cardiac Surgery, Endocrine Surgery, Ear Surgery, Abdominal Surgery, Nephrectomy, Neurologic Surgery, Lumpectomy, Section or Organ Transplant Social History SMOKING STATUS: Never smoker SECOND HAND EXPOSURE: No SUBSTANCE USE: does not use ED Exam General Limitations: Present no limitations General appearance: Present alert and in no apparent distress Head Head exam: Present atraumatic Eye Eye exam: Present normal appearance, PERRL and EOMI ENT ENT exam: Present normal exam, normal oropharynx and mucous membranes moist Neck Neck exam: Present normal inspection, full ROM and trachea midline Chest Chest inspection: Present normal inspection and symmetric chest wall rise Respiratory Respiratory exam: Present normal lung sounds bilaterally Cardiovascular Cardiovascular exam: Present regular rate, normal rhythm and normal heart sounds Abdominal Exam Abdominal exam: Present soft and normal bowel sounds; Absent distention, tenderness, guarding, rebound or rigidity Extremities Exam Extremities exam: Present normal inspection and full ROM Back Exam Back exam: Present normal inspection and full ROM Neurological Exam Neurological exam: Present alert, oriented X3 and CN II-XII intact Psychiatric Psychiatric exam: Present normal affect and normal mood Skin Skin exam: Present warm, dry, intact and normal color Course Quality Measures none Orders Category Date Time Status US OB <= 14 weeks fetus Stat Exams 08/28/25 08:58 Completed ABO/RH Type Stat Lab 08/28/25 09:30 Completed Beta HCG,Quantitative Stat Lab 08/28/25 09:30 Completed CBC Stat Lab 08/28/25 09:30 Completed CMP [Comprehensive Metabolic Panel] Stat Lab 08/28/25 09:30 Completed UA [Urinalysis] Stat Lab 08/28/25 09:15 Completed Vital Signs Vital signs: Vital Signs Temperature 98.3 F 08/28/25 08:48 Pulse Rate 76 08/28/25 08:48 Respiratory Rate 16 08/28/25 08:48 Blood Pressure 115/81 08/28/25 08:48 Pulse Oximetry (%) 98 08/28/25 08:48 Oxygen Delivery Method Room Air 08/28/25 08:48 Vaginal Bleeding MDM Narrative MDM Narrative: 35-year-old female with no known medical history presents to the emergency room with a chief complaint of vaginal bleeding and abdominal cramping x 2 days. Patient states she is currently 4 weeks . Patient is hemodynamically stable and in no apparent distress Physical examination shows a soft nontender abdomen. Ultrasound does not show any intrauterine gestation or any findings of retained products of conception. Patient's hCG levels were at 20 Patient was educated to return in 48 hours for repeat blood work and ultrasound to assess for any viability Patient was discharged and educated to follow-up with primary care provider in the next 24 to 48 hours and return to the emergency room for any evidence of worsening signs or symptoms Patient data External records reviewed:: [facility] previous records Clinical information provided by:: patient Social determinants that could affect healthcare access:: none Patient has the following chronic illnesses:: No chronic illness How is presenting disease/condition affected by chronic disease/condition?: no chronic disease Evaluation data The following diagnostics were reviewed and interpreted by me:: lab results and radiology exam(s) Lab and/or radiology exams considered but not ordered:: Labs and radiology exams considered and ordered Interpretation Summary: Ultrasound OB-Findings: Uterus 10.4 cm endometrial stripe 1.5 cm No intrauterine gestation or definite retained products of conception Right ovary 2.5 cm arterial flow Left ovary 2.6 cm arterial flow IMPRESSION: No intrauterine gestation or definite findings of retained products of conception Medications / Prescriptions Medications or Prescriptions considered but not ordered:: Medication not given Medication administrations:: Medication not given Consultations Consultation(s) initiated? (list below): No Diagnosis Vaginal Bleeding Differential Diagnosis: missed , threatened , dysfunctional uterine bleeding and vaginal bleeding Most likely diagnosis given after review of the tests above:: Vaginal bleeding Admission Indicated Admission indicated?: not indicated Admission Request Was there a request for admission?: No Disposition Plan Disposition Plan: Discharge Discharge Attestation Discharge Attestation: The patient and all family members were given an opportunity to ask questions and understood the discharge instructions. Discharge instructions specifically effects, indications for sooner follow up or return to the emergency department, and the expected course of current diagnosis. Patient condition: Stable Discharge Plan Plan Patient Disposition: HOME (Self Care) Discharge Disposition comment: Stable Prescriptions/Referrals Prescriptions/Med Rec: No Action cyclobenzaprine 10 mg tablet 10 mg PO HS PRN (Reason: muscle spasm) Qty: 20 0RF ibuprofen 800 mg tablet 800 mg PO Q6H PRN (Reason: pain) Qty: 20 0RF albuterol sulfate [Ventolin HFA] 90 mcg/actuation HFA aerosol inhaler 2 puff inhalation Q6H PRN (Reason: shortness of breath or wheezing) Qty: 8.5 0RF albuterol sulfate 90 mcg/actuation HFA aerosol inhaler 2 puff inhalation Q4H PRN (Reason: shortness of breath or wheezing) Qty: 18 0RF ondansetron 4 mg tablet,disintegrating 4 mg PO Q6H PRN (Reason: nausea and vomiting) Qty: 10 0RF ibuprofen 400 mg Tablet 800 mg PO Q8H PRN (Reason: See Comments) Qty: 60 0RF docusate sodium 100 mg Capsule 100 mg PO BID Qty: 60 0RF PNV no.95-ferrous fumarate-FA [] 28 mg iron- 800 mcg tablet 1 tab PO QDAY Referrals: Kristal Peralta PA-C [Primary Care Provider] - In 1 week Problem List Clinical Impression: Vaginal bleeding Patient/Caregiver Discharge Instructions Education Materials: ED Dysfunctional Uterine Bleeding Additional Instructions: Please follow-up with your primary care provider in the next 24 to 48 hours Ultrasound was completed and at this time does not show any intrauterine gestation. Your hCG levels do show a and the level was at 20 You will need to return in 3 days for repeat ultrasound and blood work to confirm viability For any evidence of worsening signs or symptoms return to emergency room immediately Print Language: Hungarian Stand Alone Forms: Bree Award Info., Work/School Release, Patient Portal Info Letter
[2025-08-28 09:22] LABS: Collection Type, Urine Clean Catch
[2025-08-28 09:40] LABS: Basophils # (Auto) 0.0 Thou/mm3 (0.0-0.2); Basophils % (Auto) 1 % (0-2.5); Eosinophils # (Auto) 0.5 Thou/mm3 (0.0-0.5); Eosinophils % (Auto) 6 % (0-10); Hematocrit 37.1 % (36.0-46.0); Hemoglobin 12.5 g/dL (12.0-16.0); Immature Granulocytes Auto 0.01 Thou/mm3 (0.00-0.00); Lymphocytes # (Auto) 2.1 Thou/mm3 (1.0-4.8); Lymphocytes % (Auto) 28 % (10-50); Mean Corpuscular HGB Conc 33.7 g/dl (31.0-37.0); Mean Corpuscular Hemoglobin 30.6 pg (25.0-35.0); Mean Corpuscular Volume 91 fL (80-100); Monocytes # (Auto) 0.4 Thou/mm3 (0.0-0.8); Monocytes % (Auto) 6 % (0-12); Neutrophils # (Auto) 4.4 Thou/mm3 (1.8-7.7); Neutrophils % (Auto) 59 % (37-80); Nucleated Red Blood Cell # 0.00 Thou/mm3 (0.00-0.00); Nucleated Red Blood Cell % 0 /100 WBC (0); Platelet Count 213 Thou/mm3 (140-440); RDW Standard Deviation 40.8 fL (36.4-46.3); Red Blood Count 4.09 Miln/mm3 (4.00-5.20); White Blood Count 7.5 Thou/mm3 (3.6-11.0)
[2025-08-28 09:43] LABS: Bacteria,Urine Rare; Bilirubin,Urine Negative (Negative); Blood,Urine 3+ (Negative); Clarity,Urine Turbid (Clear/Hazy); Color,Urine Lt-Yellow (Lt Yel-Yel); Glucose, Urine Negative (Negative); Ketones,Urine Negative (Negative); Leukocyte Esterase,Urine Negative (Negative); Nitrite,Urine Negative (Negative); PH,Urine 5.5 (5.0-7.0); Protein,Urine Negative (Neg - Trace); RBC,Urine 1052 /hpf (0-3); Specific Gravity,Urine 1.023 (1.001-1.035); Squamous Epithelial Cell,Urine 3 /hpf (0-5); Urobilinogen,Urine Negative mg/dL (0.0-1.0); WBC,Urine 2 /hpf (0-5)
[2025-08-28 10:06] LABS: Alanine Aminotransferase 44 U/L (10-49); Albumin, Serum 4.3 gm/dL (3.5-5.0); Albumin/Globulin Ratio 1.7 (1.2-2.2); Alkaline Phosphatase 70 U/L (46-116); Anion Gap 8 (7-16); Aspartate Amino Transferase 29 U/L (0-34); BUN/Creatinine Ratio 17 Ratio (12-20); Beta HCG,Quantitative 20 mIU/mL (<5.0); Bilirubin,Total 0.6 mg/dL (0.3-1.2); Blood Urea Nitrogen 10 mg/dL (9-23); Calcium 8.9 mg/dL (8.3-10.6); Calcium (Corrected) 8.9 mg/dL (8.5-10.1); Carbon Dioxide 24.8 mMol/L (20.0-31.0); Chloride 108 mMol/L (98-107); Creatinine (Component) 0.6 mg/dL (0.6-1.3); Estimated Creatinine Clearance 147.3 mL/min (>60); Globulin 2.6 gm/dL (2.3-3.5); Glucose 102 mg/dL (74-106); Osmolality,Calculated 280 (275-295); Potassium 4.1 mMol/L (3.4-5.1); Sodium 141 mMol/L (136-145); Total Protein 6.9 gm/dL (5.7-8.2); eGFR > 60 See Note
[2025-08-28 12:21] VITALS: BP 118/85; PULSE 72; RESP 16; TEMP 36.8; O2SAT 98
== END 2025-08-28 13:14 | disposition home or self-care (01) ==
PROVIDERS: Nurse Practitioner Family; Emergency Provider Emergency Medicine; PCP Physician Assistant Medical
DX: O20.9 Hemorrhage in early pregnancy, unspecified (principal); Z3A.01 Less than 8 weeks gestation of pregnancy
CPT/HCPCS: 36415; 76801; 80053; 81001; 84702; 85025; 86900; 86901; 99283